=== PATIENT | male | born 1965 | race Caucasian/White ===

== ENCOUNTER 2019-03-11 11:47 | Inpatient (IN) | payer MEDICARE, OTHER ==
[2019-03-11] MEDS ORDERED: IPRATROPIUM-ALBUTEROL 3 ML NEB INHALATION STA (12:07)
[2019-03-11] MEDS ORDERED: methylPREDNISolone SOD SUCCI 125 MG/2 ML VIAL IV STA (12:07)
--- NOTE | 2019-03-11 12:09 | ED ---
General Adult HPI - General Chief complaint: Shortness of Breath Stated complaint: shahriar Time Seen by Provider: 03/11/19 11:56 Source: patient, RN notes reviewed Mode of arrival: ambulatory Limitations: no limitations - History of Present Illness Initial comments: Patient is a pleasant 53-year-old male presenting to the emergency department with difficulty in breathing. Onset of symptoms was last night, worse today. Patient did not sleep well. No leg pain or leg swelling. Patient believes he ate some bad tuna last night and did vomit twice. No nausea at this point. Patient is unclear if he has had fevers. Patient is a chronic smoker however h as never been diagnosed with COPD. - Related Data Home Medications Medication Instructions Recorded Confirmed Divalproex [Depakote] 1,500 mg PO HS 03/11/19 03/11/19 Ibuprofen [Motrin Ib] 800 mg PO Q6H PRN 03/11/19 03/11/19 Omeprazole 20 mg PO DAILY PRN 03/11/19 03/11/19 risperiDONE [RisperDAL] 4 mg PO HS 03/11/19 03/11/19 Allergies Allergy/AdvReac Type Severity Reaction Status Date / Time sulfamethoxazole Allergy Unknown Verified 03/11/19 12:11 [From Bactrim] trimethoprim [From Bactrim] Allergy Unknown Verified 03/11/19 12:11 codeine AdvReac Nausea Verified 03/11/19 12:11 Review of Systems ROS Statement: Those systems with pertinent positive or pertinent negative responses have been documented in the HPI. ROS Other: All systems not noted in ROS Statement are negative. Constitutional: Reports: as per HPI Eyes: Denies: eye pain ENT: Denies: ear pain Respiratory: Reports: cough, dyspnea Cardiovascular: Denies: chest pain Endocrine: Reports: fatigue Gastrointestinal: Reports: nausea, vomiting. Denies: abdominal pain Genitourinary: Denies: dysuria Musculoskeletal: Denies: back pain Skin: Denies: rash Neurological: Denies: weakness Past Medical History Past Medical History: COPD, Osteoarthritis (OA) Additional Past Medical History / Comment(s): chronic back pain History of Any Multi-Drug Resistant Organisms: None Reported Past Surgical History: Orthopedic Surgery Past Anesthesia/Blood Transfusion Reactions: No Reported Reaction Past Psychological History: Bipolar, Schizophrenia Smoking Status: Current every day smoker Past Alcohol Use History: None Reported Past Drug Use History: None Reported General Exam Limitations: no limitations General appearance: alert Head exam: Present: atraumatic Eye exam: Present: normal appearance, PERRL ENT exam: Present: normal oropharynx Neck exam: Present: normal inspection Respiratory exam: Present: wheezes, decreased breath sounds Cardiovascular Exam: Present: regular rate, normal rhythm GI/Abdominal exam: Present: soft. Absent: tenderness Extremities exam: Present: normal inspection. Absent: pedal edema, calf tenderness Neurological exam: Present: alert Psychiatric exam: Present: normal affect, normal mood Skin exam: Present: normal color Course Vital Signs 03/11/19 03/11/19 03/11/19 11:49 13:21 13:24 Temperature 97.8 F Pulse Rate 90 100 98 Respiratory 34 H 22 Rate Blood Pressure 134/69 134/106 O2 Sat by Pulse 89 L 92 L Oximetry 03/11/19 03/11/19 03/11/19 13:28 14:06 14:10 Temperature Pulse Rate 102 H 109 H Respiratory 22 24 Rate Blood Pressure 167/102 O2 Sat by Pulse 85 L 86 L Oximetry 03/11/19 14:36 Temperature Pulse Rate 77 Respiratory 28 H Rate Blood Pressure 125/80 O2 Sat by Pulse 93 L Oximetry - Reevaluation(s) Reevaluation #1: 03/11/19 13:41 Repeat EKG shows sinus rhythm and 98. QRS 156. QT 410. QTc 523. Normal axis. Left Bundle-branch block. Nonspecific ST-T. 03/11/19 15:01 Patient was placed on BiPAP with improvement of respiratory status. Patient states he does feel improved. Case was discussed with Dr. Smith with cardiology who will consult. He has came to see the patient. Case was also discussed in detail with Dr. Singh, who will consult 03/11/19 15:24 Case was discussed with Dr. Auguste, who will admit covering for Dr. Palacio. EKG Findings - EKG Comments: EKG Findings:: Sinus rhythm at 89. For screening AV block TX of 344. QRS 148. QT 406. QTc 493. Normal axis. Left bundle branch block. Nonspecific T waves. Medical Decision Making - Lab Data Result diagrams: 03/11/19 12:26 03/11/19 12:26 Lab Results 03/11/19 03/11/19 03/11/19 Range/Units 12:26 12:26 12:26 WBC 10.3 (3.8-10.6) k/uL RBC 4.32 (4.30-5.90) m/uL Hgb 13.9 (13.0-17.5) gm/dL Hct 40.5 (39.0-53.0) % MCV 93.8 (80.0-100.0) fL MCH 32.3 (25.0-35.0) pg MCHC 34.4 (31.0-37.0) g/dL RDW 12.6 (11.5-15.5) % Plt Count 217 (150-450) k/uL Neutrophils % 79 % Lymphocytes % 12 % Monocytes % 6 % Eosinophils % 1 % Basophils % 0 % Neutrophils # 8.2 H (1.3-7.7) k/uL Lymphocytes # 1.3 (1.0-4.8) k/uL Monocytes # 0.6 (0-1.0) k/uL Eosinophils # 0.1 (0-0.7) k/uL Basophils # 0.0 (0-0.2) k/uL PT 9.6 (9.0-12.0) sec INR 0.9 (<1.2) APTT 24.7 (22.0-30.0) sec D-Dimer 1.14 H (<0.60) mg/L FEU Sodium 131 L (137-145) mmol/L Potassium 5.2 H (3.5-5.1) mmol/L Chloride 97 L (98-107) mmol/L Carbon Dioxide 22 (22-30) mmol/L Anion Gap 12 mmol/L BUN 21 H (9-20) mg/dL Creatinine 0.79 (0.66-1.25) mg/dL Est GFR (CKD-EPI)AfAm >90 (>60 ml/min/1.73 sqM) Est GFR (CKD-EPI)NonAf >90 (>60 ml/min/1.73 sqM) Glucose 140 H (74-99) mg/dL Calcium 9.0 (8.4-10.2) mg/dL Total Bilirubin 0.3 (0.2-1.3) mg/dL AST 130 H (17-59) U/L ALT 49 (21-72) U/L Alkaline Phosphatase 69 (38-126) U/L Creatine Kinase 887 H (55-170) U/L Troponin I (0.000-0.034) ng/mL NT-Pro-B Natriuret Pep pg/mL Total Protein 6.8 (6.3-8.2) g/dL Albumin 4.1 (3.5-5.0) g/dL 03/11/19 03/11/19 Range/Units 12:26 12:26 WBC (3.8-10.6) k/uL RBC (4.30-5.90) m/uL Hgb (13.0-17.5) gm/dL Hct (39.0-53.0) % MCV (80.0-100.0) fL MCH (25.0-35.0) pg MCHC (31.0-37.0) g/dL RDW (11.5-15.5) % Plt Count (150-450) k/uL Neutrophils % % Lymphocytes % % Monocytes % % Eosinophils % % Basophils % % Neutrophils # (1.3-7.7) k/uL Lymphocytes # (1.0-4.8) k/uL Monocytes # (0-1.0) k/uL Eosinophils # (0-0.7) k/uL Basophils # (0-0.2) k/uL PT (9.0-12.0) sec INR (<1.2) APTT (22.0-30.0) sec D-Dimer (<0.60) mg/L FEU Sodium (137-145) mmol/L Potassium (3.5-5.1) mmol/L Chloride (98-107) mmol/L Carbon Dioxide (22-30) mmol/L Anion Gap mmol/L BUN (9-20) mg/dL Creatinine (0.66-1.25) mg/dL Est GFR (CKD-EPI)AfAm (>60 ml/min/1.73 sqM) Est GFR (CKD-EPI)NonAf (>60 ml/min/1.73 sqM) Glucose (74-99) mg/dL Calcium (8.4-10.2) mg/dL Total Bilirubin (0.2-1.3) mg/dL AST (17-59) U/L ALT (21-72) U/L Alkaline Phosphatase (38-126) U/L Creatine Kinase (55-170) U/L Troponin I 15.300 H* (0.000-0.034) ng/mL NT-Pro-B Natriuret Pep 02397 pg/mL Total Protein (6.3-8.2) g/dL Albumin (3.5-5.0) g/dL - Radiology Data Radiology results: report reviewed (Computed tomography scan of the chest computed tomography scan of the chest shows no definitive pulmonary embolism. Limited exam. Bilateral effusions and pulmonary venous congestion is present with scattered groundglass opacities likely congestive heart failure. No pneumonia identified.), image reviewed (Chest x-ray shows no masses.) Critical Care Time Critical Care Time: Yes Total Critical Care Time: 35 Disposition Clinical Impression: Acute pulmonary edema, Congestive heart failure Disposition: ADMITTED IP TO THIS HOSP Is patient prescribed a controlled substance at d/c from ED?: No Referrals: Laureano Palacio MD [Primary Care Provider] - 1-2 days Decision Time: 15:01
[2019-03-11 12:40] LABS: Basophils % (A) 0 %; Eosinophils # (A) 0.1 k/uL (0-0.7); Eosinophils % (A) 1 %; HCT 40.5 % (39.0-53.0); HGB 13.9 gm/dL (13.0-17.5); Lymphocytes # (A) 1.3 k/uL (1.0-4.8); Lymphocytes % (A) 12 %; MCH 32.3 pg (25.0-35.0); MCHC 34.4 g/dL (31.0-37.0); MCV 93.8 fL (80.0-100.0); Mean Platelet Volume 9.5; Monocytes # (A) 0.6 k/uL (0-1.0); Monocytes % (A) 6 %; Neutrophils # (A) 8.2 k/uL (1.3-7.7); Neutrophils % (A) 79 %; Platelet Count 217 k/uL (150-450); RBC 4.32 m/uL (4.30-5.90); RDW 12.6 % (11.5-15.5); WBC 10.3 k/uL (3.8-10.6)
[2019-03-11 12:53] LABS: INR 0.9 (<1.2); Partial Thromboplastin Time 24.7 sec (22.0-30.0); Prothrombin Time 9.6 sec (9.0-12.0)
[2019-03-11 12:59] LABS: ALT 49 U/L (21-72); AST 130 U/L (17-59); Albumin 4.1 g/dL (3.5-5.0); Alkaline Phosphatase 69 U/L (38-126); Anion Gap 12 mmol/L; Blood Urea Nitrogen 21 mg/dL (9-20); Carbon Dioxide 22 mmol/L (22-30); Chloride 97 mmol/L (98-107); Creatine Kinase 887 U/L (55-170); Glucose 140 mg/dL (74-99); Potassium 5.2 mmol/L (3.5-5.1); Sodium 131 mmol/L (137-145); Total Bilirubin 0.3 mg/dL (0.2-1.3); Total Protein 6.8 g/dL (6.3-8.2)
[2019-03-11 13:08] LABS: D-Dimer 1.14 mg/L FEU (<0.60)
--- NOTE | 2019-03-11 13:22 | XR ---
EXAMINATION TYPE: XR chest 2V DATE OF EXAM: 03/11/2019 COMPARISON: 03/11/2019 HISTORY: Shortness of breath TECHNIQUE: Frontal and lateral views of the chest are obtained. FINDINGS: Scattered senescent parenchymal changes noted. Hyperinflation compatible with COPD. No evidence for infiltrate. No evidence for atelectasis. Heart size is stable. Mediastinal structures are stable and grossly unremarkable. No evidence for hilar prominence. Degenerative changes dorsal spine. IMPRESSION: 1. No evidence for acute pulmonary disease.
[2019-03-11] MEDS ORDERED: HEPARIN SODIUM,PORCINE 10,000 UNIT/ML 1 ML VIAL IV ONE (13:40)
[2019-03-11] MEDS ORDERED: MORPHINE SULFATE 4 MG/ML SYRINGE IV STA (13:40)
[2019-03-11] MEDS ORDERED: HEPARIN SODIUM,PORCINE 5,000 UNIT/ML 1 ML VIAL IV PRN (13:40)
[2019-03-11] MEDS ORDERED: HEPARIN SOD,PORK IN 0.45% NACL 25,000 UNIT in 0.45% NACL 1 250ML.BAG IV SCH (13:45)
--- NOTE | 2019-03-11 14:27 | CT ---
EXAMINATION TYPE: CT angio chest DATE OF EXAM: 03/11/2019 COMPARISON: None HISTORY: SHAREE CT DLP: 864.4 mGycm CONTRAST: CT chest with contrast and 3D reconstruction with MIP imaging is performed without and with IV Contra st, patient injected with 100 ml mL of Isovue 370. Contrast-enhanced CT of the chest was performed through the course of the pulmonary arteries with zara g and mediastinal window settings submitted. 3D reconstruction with MIP imaging was also performed. Patient motion limits portions of the study. PULMONARY ARTERIES: Patient motion limits evaluation. Pulmonary arteries are patent without filling defect. Secondary and tertiary branches also appear to be patent however the distal tertiary branches are poorly evaluated on this study. LUNGS: There are small bilateral pleural effusions noted. There is a degree of pulmonary venous conge stion. Scattered linear areas of atelectasis noted. Scattered nonspecific groundglass infiltrates not ed. No evidence for pulmonary mass. MEDIASTINUM: Thoracic aorta is of normal caliber,however, evaluation is limited given timing of the contrast bolus. If there is concern for thoracic aortic pathology consider MITCHELL. Correlate clinicall y . The heart is not enlarged. No evidence for mediastinal mass. No mediastinal lymph nodes greater than 1cm. HILAR STRUCTURES: No evidence for mass. No hilar lymph nodes greater than 1 cm. UPPER ABDOMEN: No significant abnormality is seen. IMPRESSION: 1. No definite pulmonary embolism at this time. Examination is limited given patient motion and resu ltant artifact. See above. 2. Small bilateral pleural effusions and pulmonary venous congestion with scattered ground glass infi ltrates could reflect early features of congestive failure. Correlate clinically. No focal pneumonia identified at this time.
[2019-03-11] MEDS ORDERED: LORazepam 2 MG/ML INJ IV STA (14:32)
[2019-03-11] MEDS ORDERED: NITROGLYCERIN OINT 1 INCH/GM PACKET TOPICAL STA (14:49)
[2019-03-11] MEDS ORDERED: FUROSEMIDE 10 MG/ML 4 ML VIAL IV STA (14:49)
[2019-03-11] MEDS ORDERED: ENALAPRILAT 1.25 MG/ML 1 ML VIAL IVP STA (14:50)
[2019-03-11] MEDS ORDERED: ASPIRIN 325 MG TAB PO STA (15:26)
[2019-03-11] MEDS ORDERED: ASPIRIN 81 MG PO STA (15:26)
[2019-03-11] MEDS ORDERED: ENALAPRILAT 1.25 MG/ML 1 ML VIAL IVP SCH (15:30)
[2019-03-11] MEDS ORDERED: FUROSEMIDE 10 MG/ML 4 ML VIAL IV SCH ×2 (15:30)
[2019-03-11] MEDS: HEPARIN SOD,PORK IN 0.45% NACL 25,000 UNIT in 0.45% NACL 1 250ML.BAG IV SCH (15:41)
[2019-03-11 16:43] LABS: Glucose,Whole Blood 191 mg/dL (75-99)
[2019-03-11 16:51] LABS: ABG Base Excess -6.8 mmol/L; ABG HCO3 19 mmol/L (21-25); ABG Oxygen Saturation 99.2 % (94-97); ABG PCO2 36 mmHg (35-45); ABG PH 7.33 (7.35-7.45); ABG PO2 198 mmHg (83-108); ABG TCO2 20 mmol/L (19-24)
--- NOTE | 2019-03-11 17:16 | P.CNPUL ---
History of Present Illness Consult date: 03/11/19 Requesting physician: Nikolas Auguste Reason for consult: dyspnea, chest pain, abnormal CXR/CT Chief complaint: Shortness of breath History of present illness: This is a 53-year-old white male patient of Dr. Palacio, past medical history of COPD, current every day smoker, bipolar disorder, schizophrenia, osteoarthritis, chronic back pain, presented to the emergency department on 03/11/2019 at 1147 w ith complaints of difficulty breathing that started last night and became progressively worse today. Patient at first believed that it was related to some bad tuna he had eaten last night, he did have a couple of episodes of vomiting. Unclear if he had any fevers. Patient could not sleep well last night related to his dyspnea, nausea and vomiting. Did complain of chest discomfort, she is currently on BiPAP, he is quite irritable, difficult to interview. Most of the patient's history was obtained from the chart. Denied any leg pain or swelling. EKG showed sinus rhythm with first-degree AV block, left bundle branch block and nonspecific T waves, repeat EKG showed sinus rhythm with a rate of 98 left bundle branch block and nonspecific ST and T wave changes. Chest x-ray showed no evidence for acute pulmonary disease. Lab work did not show any leukocytosis, d-dimer was elevated at 1.14, CT angios chest did not show any evidence of definite pulmonary embolism, the examination was li mited related to patient's motion and resultant artifact. Small bilateral pleural effusions and pulmonary venous congestion with scattered groundglass infiltrates affecting early features of congestive heart failure. No focal pneumonia was identified. Permanent was elevated at 15,003 100, creatinine kinase was 887, AST was 1:30, proBNP was 11,000. Patient was given a dose of IV Lasix, he was seen by cardiology in the emergency department and was started on maintenance dose of Lasix 40 mg every 8 hours. Patient was quite tachypneic, and hypoxemic, she was placed on BiPAP support, currently with pressures of 75 and FiO2 of 100%. IPap was increased to 15, stat blood gas was obtained and s howed pO2 of 198, pCO2 36, pH of 7.33. Will drop FiO2 down to 70%. Review of Systems All systems: negative Constitutional: Denies chills, Denies fever Eyes: denies blurred vision, denies pain Ears, nose, mouth and throat: Denies headache, Denies sore throat Cardiovascular: Reports chest pain, Reports dyspnea on exertion, Reports orthopnea, Denies shortness of breath Respiratory: Reports dyspnea, Denies cough Gastrointestinal: Denies abdominal pain, Denies diarrhea, Denies nausea, Denies vomiting Musculoskeletal: Denies myalgias Integumentary: Denies pruritus, Denies rash Neurological: Denies numbness, Denies weakness Psychiatric: Denies anxiety, Denies depression Endocrine: Denies fatigue, Denies weight change Past Medical History Past Medical History: COPD, Osteoarthritis (OA) Additional Past Medical History / Comment(s): chronic back pain History of Any Multi-Drug Resistant Organisms: None Reported Past Surgical History: Orthopedic Surgery Past Anesthesia/Blood Transfusion Reactions: No Reported Reaction Past Psychological History: Bipolar, Schizophrenia Smoking Status: Current every day smoker Past Alcohol Use History: None Reported Past Drug Use History: None Reported Medications and Allergies Home Medications Medication Instructions Recorded Confirmed Type Divalproex [Depakote] 1,500 mg PO HS 03/11/19 03/11/19 History Ibuprofen [Motrin Ib] 800 mg PO Q6H PRN 03/11/19 03/11/19 History Omeprazole 20 mg PO DAILY PRN 03/11/19 03/11/19 History risperiDONE [RisperDAL] 4 mg PO HS 03/11/19 03/11/19 History Allergies Allergy/AdvReac Type Severity Reaction Status Date / Time sulfamethoxazole Allergy Unknown Verified 03/11/19 12:11 [From Bactrim] trimethoprim [From Bactrim] Allergy Unknown Verified 03/11/19 12:11 codeine AdvReac Nausea Verified 03/11/19 12:11 Physical Exam Vitals: Vital Signs Temp Pulse Resp BP Pulse Ox 03/11/19 16:38 97.9 F 59 L 24 105/69 98 03/11/19 15:36 69 24 116/92 98 03/11/19 15:00 70 24 114/83 97 03/11/19 14:36 77 28 H 125/80 93 L 03/11/19 14:10 24 86 L 03/11/19 14:06 109 H 22 167/102 85 L 03/11/19 13:45 28 H 03/11/19 13:28 102 H 03/11/19 13:24 98 22 134/106 92 L 03/11/19 13:21 100 03/11/19 11:49 97.8 F 90 34 H 134/69 89 L Intake and Output 03/11/19 03/11/19 03/11/19 06:59 14:59 22:59 Other: Weight 127.006 kg GENERAL EXAM: Alert, slightly anxious, irritable, 53-year-old white male on BiPAP support, currently with pressures of 15/5, and FiO2 100%, tachypneic, with the respiratory rate in the 30s, comfortable in no apparent distress. HEAD: Normocephalic/atraumatic. EYES: Normal reaction of pupils, equal size. Conjunctiva pink, sclera white. NOSE: Clear with pink turbinates. THROAT: No erythema or exudates. NECK: No masses, no JVD, no thyroid enlargement, no adenopathy. CHEST: No chest wall deformity. Symmetrical expansion. LUNGS: Equal air entry with diminished breath sounds CVS: Regular rate and rhythm, normal S1 and S2, no gallops, no murmurs, no rubs ABDOMEN: Soft, nontender. No hepatosplenomegaly, normal bowel sounds, no guarding or rigidity. EXTREMITIES: No clubbing, no edema, no cyanosis, 2+ pulses and upper and lower extremities. MUSCULOSKELETAL: Muscle strength and tone normal. SPINE: No scoliosis or deformity SKIN: No rashes CENTRAL NERVOUS SYSTEM: Alert and oriented -3. No focal deficits, tone is normal in all 4 extremities. PSYCHIATRIC: Alert and oriented -3. Appropriate affect. Intact judgment and insight. Results - Laboratory Findings CBC and BMP: 03/11/19 12:26 03/11/19 12:26 PT/INR, D-dimer PT 9.6 sec (9.0-12.0) 03/11/19 12:26 INR 0.9 (<1.2) 03/11/19 12:26 D-Dimer 1.14 mg/L FEU (<0.60) H 03/11/19 12:26 Abnormal lab findings: Abnormal Labs 03/11/19 03/11/19 03/11/19 12:26 12:26 12:26 Neutrophils # 8.2 H D-Dimer 1.14 H Sodium 131 L Potassium 5.2 H Chloride 97 L BUN 21 H Glucose 140 H POC Glucose (mg/dL) AST 130 H Creatine Kinase 887 H Troponin I 03/11/19 03/11/19 12:26 16:40 Neutrophils # D-Dimer Sodium Potassium Chloride BUN Glucose POC Glucose (mg/dL) 191 H AST Creatine Kinase Troponin I 15.300 H* - Diagnostic Findings Chest x-ray: report reviewed, image reviewed CT scan - chest: report reviewed, image reviewed Additional studies: EKG reviewed Assessment and Plan Plan: Assessment: #1. Acute hypoxemic respiratory failure secondary to acute exacerbation of congestive heart failure, with reduced ejection fraction #2. Elevated d-dimer, CT angios chest did not show any clear evidence of pulmonary embolism, did show small bilateral pleural effusions, pulmonary venous congestion, reflecting changes of congestive heart failure #3. Acute non-ST elevated myocardial infarction #4. COPD #5. Chronic nicotine dependence #6. Chronic back pain #7. Bipolar disorder, schizophrenia Plan: Continue with IV Lasix, stat blood gas was obtained and reviewed Dr. Mills, FiO2 was dropped down to 70%, will continue with BiPAP support for now, chest x-ray and CT angios chest were reviewed with Dr. Mills, and were consistent with acute congestive heart failure, pulmonary edema. Cardiology is following, nondistended EKG was obtained, patient is having an irregular rhythm, and at times appears to be sometime high degree block. Echocardiogram has been ordered and is pending, serial cardiac Enzymes. Continue nebulized bronchodilators, he has been started on Plavix and aspirin. He is on heparin infusion, and topical Nitropaste. We'll continue to closely follow and make further recommendations. Repeat chest x-ray in the morning, repeat blood work in the morning. I performed a history & physical examination of the patient and discussed their management with my nurse practitioner, Charlene Elmore. I reviewed the nurse practitioner's note and agree with the documented findings and plan of care. Lung sounds are positive for diminished breath sounds. The findings and the impression was discussed with the patient. I attest to the documentation by the nurse practitioner. Time with Patient: Greater than 30
[2019-03-11] MEDS ORDERED: NITROGLYCERIN OINT 1 INCH/GM PACKET TOPICAL SCH (18:00)
--- NOTE | 2019-03-11 18:54 | CONS ---
CONSULTATION CHIEF COMPLAINT: Shortness of breath. This is a 53-year-old gentleman with no significant past medical history that presented to the hospital with shortness of breath for the last 2 days. He has moderate to severe intensity shortness of breath at rest associated with leg edema. His admission EKG showed sinus rhythm with left bundle branch block and the troponins have come back [place] 15[place] [address]. His D-dimer was also elevated at 1.1. The patient went on to have a CT scan of the chest as per the ER doctor. After the CT scan, which did not reveal any pulmonary embolism, but definitely showed pulmonary congestion. The ER doctor had called me about the patient. I have seen him in the emergency room. Patient seemed to be in respiratory distress, sitting up and has not received any Lasix at this time. I asked the nurse to give him Lasix immediately with half an inch of nitro paste, give him some beta blockers and start him on an aspirin along with heparin. The patient seemed to have had a recent acute myocardial infarction with congestive heart failure. The patient has pulmonary edema. He is not able to lie flat in the bed at the moment, so the plan is to aggressively treat his heart failure and perform cardiac catheterization once the patient is more stable. I believe the patient has already completed from history, it appears as the patient's myocardial infarction is at least 48 hours old if not more. PAST MEDICAL HISTORY: Negative for hypertension, diabetes, dyslipidemia. MEDICATIONS: Include omeprazole, Motrin, Depakote and Risperdal. ALLERGIES: BACTRIM AND CODEINE. FAMILY HISTORY: Negative for premature coronary artery disease. SOCIAL HISTORY: Significant for smoking. There is no history of EtOH abuse or drug abuse. REVIEW OF SYSTEMS: HEENT is unremarkable. Cardiac as described above. Respiratory as described above. GI negative. Genitourinary negative. Allergy/Immunology: Negative. Skin negative. Musculoskeletal significant for arthritis. Psychosocial negative. Endocrine negative. Derm negative. Constitutional negative. Oncological negative. Rest of the system review is not relevant. EXAM: Patient appears in mild respiratory distress. Heart rate is 60 beats per minute. Blood pressure is 116/90, respiratory rate is 26, BiPAP O2 sat is 98% on 100% FIO2. There is no jugular venous distention. Chest exam reveals bilateral crackles. Heart exam reveals first and second heart sounds. No gallop. No murmur. Abdomen is soft. Exam of the extremities reveals bilateral 1+ pitting edema. The CT scan of the chest is negative for pulmonary embolism. EKG shows left bundle branch block. ASSESSMENT: Acute coronary syndrome with congestive heart failure probably secondary to LV systolic dysfunction. We will treat the patient with optimal medical therapy, admit the patient to ICU and consider invasive angiography over the next 24-48 hours. I will obtain a 2D echo to evaluate his LV function. NICHOLE / RICARDON: [id number] /
[2019-03-11] MEDS: IPRATROPIUM-ALBUTEROL 3 ML NEB INHALATION SCH (19:16)
[2019-03-11] MEDS ORDERED: NALOXONE 0.4 MG/ML 1 ML VIAL IV PRN (19:20)
[2019-03-11 19:42] LABS: Magnesium 1.7 mg/dL (1.6-2.3); Phosphorus 3.7 mg/dL (2.5-4.5)
[2019-03-11] MEDS ORDERED: PANTOPRAZOLE 40 MG TABLET PO PRN (20:51)
[2019-03-11] MEDS ORDERED: METOPROLOL TARTRATE 12.5 MG TAB PO SCH (21:00)
--- NOTE | 2019-03-11 21:06 | P.HPIM ---
History of Present Illness H&P Date: 03/11/19 Chief Complaint: Acute respiratory failure, pulmonary edema, acute myocardial infarction, hy 53 year-old morbidly obese male one of Dr. mckinney's patient with past medical history of COPD, chronic smoking, schizoaffective disorders along with osteoarthritis and chronic lower back pain who presented to the emergency department at [facility] today complaining of worsening shortness of breath started last night become much worse over the last few hours patient has been having significant dyspnea hypoxia and worsening cough and shortness of breath. The time was seen surprisingly his enzyme were quite bit elevated troponin was over 14 patient chest x-ray showed acute pulmonary edema he was started on BiPAP was very close to be intubated pulmonary consultation was done patient EKG showed first-degree block with wider QRS complex with left bundle-branch block having multiple PVCs and PACs with no V. tach at the time no A. fib at the point. Family were around patient and family were told that he had acute myocardial infarction sometime in the last day or 2 become much worse probably cause ischemic cardiopathy and had a created much worsening acute pulmonary edema cardiogenic in origin. Patient was started on O2 along with updraft treatment as well nicotine patch at admitted to the ICU afterward. Patient will be going to the laborer car barn with his more stable or hopefully over the next 24 hours. Review of Systems CONSTITUTIONAL: More be very obese and acute respiratory distress having significant dyspnea. EYES: No icterus sclerae, no conjunctivitis. EARS, NOSE, MOUTH, THROAT, and FACE: No sore throat, lymphadenopathy, carotid bruits or deformity. RESPIRATORY: Positive shortness of breath cough wheezes. CARDIOVASCULAR: Positive chest pain PND orthopnea palpitation. GASTROINTESTINAL: No Abd pain, Nausea or vomiting, no Diarrhea or constipation, No GI Bleed, no distention or masses. GENITOURINARY: Negative for Hematuria or UTI, no kidney stones. INTEGUMENT/BREAST: Negative for any muscular injury with mild osteoarthritis.. HEMATOLOGIC/LYMPHATIC: Negative for bleed or purpura. MUSCULOSKELTAL: Negative for Myalgia or arthralgia. NEURLOGICAL: No LOC, Sz or syncope, blurred vision dizziness or abnormality.. BEHAVIORAL/PSYCH: Negative. ENDOCRINE: Negative. Past Medical History Past Medical History: COPD, Osteoarthritis (OA) Additional Past Medical History / Comment(s): chronic back pain History of Any Multi-Drug Resistant Organisms: None Reported Past Surgical History: Orthopedic Surgery Past Anesthesia/Blood Transfusion Reactions: No Reported Reaction Past Psychological History: Bipolar, Schizophrenia Smoking Status: Current every day smoker Past Alcohol Use History: None Reported Past Drug Use History: None Reported Medications and Allergies Home Medications Medication Instructions Recorded Confirmed Type Divalproex [Depakote] 1,500 mg PO HS 03/11/19 03/11/19 History Ibuprofen [Motrin Ib] 800 mg PO Q6H PRN 03/11/19 03/11/19 History Omeprazole 20 mg PO DAILY PRN 03/11/19 03/11/19 History risperiDONE [RisperDAL] 4 mg PO HS 03/11/19 03/11/19 History Allergies Allergy/AdvReac Type Severity Reaction Status Date / Time sulfamethoxazole Allergy Unknown Verified 03/11/19 12:11 [From Bactrim] trimethoprim [From Bactrim] Allergy Unknown Verified 03/11/19 12:11 codeine AdvReac Nausea Verified 03/11/19 12:11 Physical Exam Vitals: Vital Signs Temp Pulse Pulse Resp BP Pulse Ox 03/11/19 19:16 50 L 22 03/11/19 19:00 54 L 22 125/89 98 03/11/19 18:30 50 L 24 125/89 97 03/11/19 18:00 61 28 H 125/89 95 03/11/19 17:30 61 27 H 125/89 98 03/11/19 17:00 97.6 F 72 65 H 118/83 03/11/19 16:45 62 50 H 03/11/19 16:38 97.9 F 59 L 24 105/69 98 03/11/19 15:36 69 24 116/92 98 03/11/19 15:00 70 24 114/83 97 03/11/19 14:36 77 28 H 125/80 93 L 03/11/19 14:10 24 86 L 03/11/19 14:06 109 H 22 167/102 85 L 03/11/19 13:45 28 H 03/11/19 13:28 102 H 03/11/19 13:24 98 22 134/106 92 L 03/11/19 13:21 100 03/11/19 11:49 97.8 F 90 34 H 134/69 89 L Intake and Output 03/11/19 03/11/19 03/11/19 06:59 14:59 22:59 Intake Total 40 Output Total 85 Balance -45 Intake: IV 40 normal saline 40 Output: Urine 85 Other: Voiding Method Indwelling Catheter # Voids 2 Weight 127.006 kg General Appearance: Obese looks older than his age in mild respiratory distress had IPAP on at the time. Neck HEENT: Supple, no lymphadenopathy, no thyroid enlargement, no carotid bruits. Lungs: Clear to auscultation without crackles or wheezes no rhonchi, no deformity. Chest Wall: Decrease expansion with deep inspiration no tenderness and no deformity was found on exam, no costochondral pain or discomfort. Heart: Regular rate and rhythm, S1, S2 positive S3 positive JVD ,no rub or gallop. Back: Symmetric, severe scoliosis with L-spine discomfort. Abdomen: Distended positive bowel sound no organomegaly. Extremities: Extremities positive osteoarthritis with 1+ edema decreased pulse. Pulses: 2+ and symmetric. Skin: Skin color, texture, tugor normal, no rashes or lesions. Neurologic: Alert oriented x3 cranial nerves II through XII intact, no motor deficit, no abnormal balance or gait. Results CBC & Chem 7: 03/11/19 12:26 03/11/19 12:26 Labs: Abnormal Lab Results - Last 24 Hours (Table) 03/11/19 03/11/19 03/11/19 Range/Units 12:26 12:26 12:26 Neutrophils # 8.2 H (1.3-7.7) k/uL D-Dimer 1.14 H (<0.60) mg/L FEU ABG pH (7.35-7.45) ABG pO2 (83-108) mmHg ABG HCO3 (21-25) mmol/L ABG O2 Saturation (94-97) % Sodium 131 L (137-145) mmol/L Potassium 5.2 H (3.5-5.1) mmol/L Chloride 97 L (98-107) mmol/L BUN 21 H (9-20) mg/dL Glucose 140 H (74-99) mg/dL POC Glucose (mg/dL) (75-99) mg/dL AST 130 H (17-59) U/L Creatine Kinase 887 H (55-170) U/L Troponin I (0.000-0.034) ng/mL 03/11/19 03/11/19 03/11/19 Range/Units 12:26 16:40 16:49 Neutrophils # (1.3-7.7) k/uL D-Dimer (<0.60) mg/L FEU ABG pH 7.33 L (7.35-7.45) ABG pO2 198 H (83-108) mmHg ABG HCO3 19 L (21-25) mmol/L ABG O2 Saturation 99.2 H (94-97) % Sodium (137-145) mmol/L Potassium (3.5-5.1) mmol/L Chloride (98-107) mmol/L BUN (9-20) mg/dL Glucose (74-99) mg/dL POC Glucose (mg/dL) 191 H (75-99) mg/dL AST (17-59) U/L Creatine Kinase (55-170) U/L Troponin I 15.300 H* (0.000-0.034) ng/mL 03/11/19 Range/Units 18:06 Neutrophils # (1.3-7.7) k/uL D-Dimer (<0.60) mg/L FEU ABG pH (7.35-7.45) ABG pO2 (83-108) mmHg ABG HCO3 (21-25) mmol/L ABG O2 Saturation (94-97) % Sodium (137-145) mmol/L Potassium (3.5-5.1) mmol/L Chloride (98-107) mmol/L BUN (9-20) mg/dL Glucose (74-99) mg/dL POC Glucose (mg/dL) (75-99) mg/dL AST (17-59) U/L Creatine Kinase (55-170) U/L Troponin I 14.600 H* (0.000-0.034) ng/mL Thrombosis Risk Factor Assmnt - DVT/VTE Prophylaxis DVT/VTE Prophylaxis: Pharmacologic Prophylaxis ordered, Mechanical Prophylaxis ordered - Choose All That Apply Any of the Below Risk Factors Present?: Yes Each Factor Represents 1 point: Abnormal pulmonary function (COPD), Age 41-60 years Thrombosis Risk Factor Assessment Total Risk Factor Score: 2 Thrombosis Risk Factor Assessment Level: Low Risk Assessment and Plan Plan: 1 acute respiratory failure: Combination of acute cardiac pulmonary edema along with COPD exacerbation and acute ID. Will treat underlying disease continue Bi PAP and if patient declined might require to be on ventilator pulmonary consultation was obtained. 2 acute pulmonary edema: Most likely cardiogenic from acute ID had happen in the last 24 hours which affected the heart muscle and created cardiogenic shock patient will be seen cardiology continue supportive care continue diuretics O2 beta anil and keep watching patient for any arrhythmia. 3 acute myocardial infarction: Most likely has taking place in the last day or 2 patient eventually need to go to the laborer car barn in the meanwhile the extreme high mortality specially with arrhythmia and effect on the heart muscle all to be seen and determine over the next 48 hours. 4 COPD with mild exacerbation: Patient still on acute respiratory acidosis: Continue DuoNeb Pulmicort and steroid continue O2 and BiPAP. 5 nicotine dependency: Continue a Chin nicotine patch. 6 severe hyperglycemia: Continue Accu-Chek with sliding scales coverage. 7 bipolar disorders and schizoaffective disorders has been on Depakote continue medication. 8 DVT prophylaxis: Patient is on heparin drip. 9 GI prophylaxis: Patient will continue on Pepcid 20 mg IV every 12 hours. CODE STATUS: Full code. Admit patient to inpatient status for more than 2 nights. Discussion with the family: The and the sister were in the bedside and with patient's current symptom cardiogenic shock is going through and the severe acute respiratory failure along with acute ID very high mortality and very high morbidity in the next few month specially with to be seen with the myocardial function loss to be discovered with echocardiogram the heart cath over the next 24 hours. We'll continue monitoring patient continue to watch him for any major arrhythmia.
[2019-03-11] MEDS: SODIUM CHLORIDE 0.9% 1,000 ML IV SCH (21:22)
[2019-03-11] MEDS: risperiDONE 2 MG TAB PO SCH (21:23)
[2019-03-11] MEDS: DIVALPROEX 500 MG TABLET.DR PO SCH (21:23)
[2019-03-11] MEDS: FAMOTIDINE 20 MG/2 ML VIAL IV SCH (21:23)
[2019-03-11] MEDS: hydrALAZINE HCL 25 MG TAB PO SCH (21:24)
[2019-03-11] MEDS: HEPARIN SODIUM,PORCINE 5,000 UNIT/ML 1 ML VIAL IV PRN (21:24)
[2019-03-11] MEDS: ENALAPRILAT 1.25 MG/ML 1 ML VIAL IVP SCH (23:41)
[2019-03-12] MEDS: FUROSEMIDE 10 MG/ML 4 ML VIAL IV SCH ×4 (01:53→23:19)
[2019-03-12] MEDS: NITROGLYCERIN OINT 1 INCH/GM PACKET TOPICAL SCH ×2 (01:53→09:01)
[2019-03-12 03:59] LABS: Basophils % (A) 0 %; Eosinophils % (A) 0 %; HCT 40.7 % (39.0-53.0); HGB 13.4 gm/dL (13.0-17.5); Lymphocytes # (A) 1.4 k/uL (1.0-4.8); Lymphocytes % (A) 13 %; MCHC 32.9 g/dL (31.0-37.0); MCV 94.2 fL (80.0-100.0); Mean Platelet Volume 8.9; Monocytes # (A) 0.6 k/uL (0-1.0); Monocytes % (A) 6 %; Neutrophils # (A) 8.2 k/uL (1.3-7.7); Neutrophils % (A) 80 %; Platelet Count 240 k/uL (150-450); RBC 4.32 m/uL (4.30-5.90); RDW 13.7 % (11.5-15.5); WBC 10.3 k/uL (3.8-10.6)
[2019-03-12 04:01] LABS: INR 0.9 (<1.2); Partial Thromboplastin Time 31.6 sec (22.0-30.0); Prothrombin Time 9.8 sec (9.0-12.0)
[2019-03-12 04:05] LABS: Anion Gap 12 mmol/L; Blood Urea Nitrogen 28 mg/dL (9-20); Calcium 8.6 mg/dL (8.4-10.2); Carbon Dioxide 21 mmol/L (22-30); Chloride 98 mmol/L (98-107); Glucose 164 mg/dL (74-99); Magnesium 1.8 mg/dL (1.6-2.3); Phosphorus 4.9 mg/dL (2.5-4.5); Potassium 5.2 mmol/L (3.5-5.1); Sodium 131 mmol/L (137-145)
[2019-03-12] MEDS: ENALAPRILAT 1.25 MG/ML 1 ML VIAL IVP SCH ×4 (05:18→20:01)
[2019-03-12] MEDS: HEPARIN SODIUM,PORCINE 5,000 UNIT/ML 1 ML VIAL IV PRN (05:21)
[2019-03-12] MEDS: IPRATROPIUM-ALBUTEROL 3 ML NEB INHALATION SCH ×4 (07:13→19:09)
--- NOTE | 2019-03-12 08:02 | XR ---
EXAMINATION TYPE: XR chest 1V portable DATE OF EXAM: 03/12/2019 COMPARISON: Prior chest x-ray 03/11/2019 HISTORY: Shortness of breath TECHNIQUE: Single frontal view of the chest is obtained. FINDINGS: Findings have progressed. Perihilar airspace disease is present. No evident pneumothorax o r pleural effusion. Heart is enlarged. IMPRESSION: Correlate for congestive heart failure.
--- NOTE | 2019-03-12 08:32 | P.PN ---
Subjective Progress Note Date: 03/12/19 Principal diagnosis: Acute hypoxemic respiratory failure secondary to acute exacerbation of congestive heart failure with impaired ejection fraction, acute non-ST elevated myocardial infarction This is a 53-year-old white male patient of Dr. Palacio, past medical history of COPD, current every day smoker, bipolar disorder, schizophrenia, osteoarthritis, chronic back pain, presented to the emergency department on 03/11/2019 at 1147 with complaints of difficulty breathing that started last night and became progressively worse today. Patient at first believed that it was related to some bad tuna he had eaten last night, he did have a couple of episodes of vomiting. Unclear if he had any fevers. Patient could not sleep well last night related to his dyspnea, nausea and vomiting. Did complain of chest discomfort, she is currently on BiPAP, he is quite irritable, difficult to interview. Most of the patient's history was obtained from the chart. Denied any leg pain or swelling. EKG showed sinus rhythm with first-degree AV block, left bundle branch block and nonspecific T waves, repeat EKG showed sinus rhythm with a rate of 98 left bundle branch block and nonspecific ST and T wave changes. Chest x-ray showed no evidence for acute pulmonary disease. Lab work did not show any leukocytosis, d-dimer was elevated at 1.14, CT angios chest did not show any evidence of definite pulmonary embolism, the examination was limited related to patient's motion and resultant artifact. Small bilateral pleural effusions and pulmonary venous congestion with scattered groundglass infiltrates affecting early features of congestive heart failure. No focal pneumonia was identified. Permanent was elevated at 15,003 100, creatinine kinase was 887, AST was 1:30, proBNP was 11,000. Patient was given a dose of IV Lasix, he was seen by cardiology in the emergency department and was started on maintenance dose of Lasix 40 mg every 8 hours. Patient was quite tachypneic, an d hypoxemic, she was placed on BiPAP support, currently with pressures of 75 and FiO2 of 100%. IPap was increased to 15, stat blood gas was obtained and showed pO2 of 198, pCO2 36, pH of 7.33. Will drop FiO2 down to 70%. On 03/12/2019 patient seen in follow-up in the intensive care unit, he remains on BiPAP support, current with pressures of 15/5, and FiO2 of 70%, with pulse ox of 95%, FiO2 was brought down to 60%. Apparently last the patient was given a trial off the BiPAP, and it did desaturate into the 80s, became very short of breath, and was placed back on BiPAP support. he remains on IV diuretics, I&O's are difficult to estimate, as patient is voiding. Today's labs have been revi ewed, CBC is unremarkable, sodium is 131, potassium is 5.2, chloride is 98, CO2 is 21, B1 is 28, creatinine 0.91. Second and third troponin are trending down, at 14.6, and 11.5 respectively. No Complaints of chest pain today, patient has coarse breath sounds, bilaterally. His chest x-ray has been reviewed and showed no pneumothorax or pleural effusion, changes of congestive heart failure. Objective - Vital Signs Vital signs: Vital Signs Temp 98.0 F 03/12/19 04:00 Pulse 87 03/12/19 07:25 Resp 26 H 03/12/19 07:00 BP 115/84 03/12/19 07:00 Pulse Ox 94 L 03/12/19 07:00 Intake & Output 03/11/19 03/12/19 03/12/19 18:59 06:59 18:59 Intake Total 20 426.41 20 Output Total 50 180 350 Balance -30 246.41 -330 Weight 127.006 kg 128.4 kg Intake: IV 20 240 20 normal saline 20 240 20 Intake, IV Titration 186.41 Amount Heparin Sod,Pork in 0.45% 186.41 NaCl 25,000 unit In 0.45 % NaCl 1 250ml.bag @ 7. 874 UNITS/KG/HR 10 mls/hr IV .Q[facility]H [facility] Rx#: [id number] Output: Urine 50 180 350 Other: Voiding Method Indwelling Catheter Indwelling Catheter # Voids 2 - Exam GENERAL EXAM: Alert, slightly anxious, irritable, 53-year-old white male on BiPAP support, currently with pressures of 15/5, and FiO2 60%, comfortable less tachypneic on today's exam HEAD: Normocephalic/atraumatic. EYES: Normal reaction of pupils, equal size. Conjunctiva pink, sclera white. NOSE: Clear with pink turbinates. THROAT: No erythema or exudates. NECK: No masses, no JVD, no thyroid enlargement, no adenopathy. CHEST: No chest wall deformity. Symmetrical expansion. LUNGS: Equal air entry with diminished breath sounds, coarse lung sounds bilaterally CVS: Regular rate and rhythm, normal S1 and S2, no gallops, no murmurs, no rubs ABDOMEN: Soft, nontender. No hepatosplenomegaly, normal bowel sounds, no guarding or rigidity. EXTREMITIES: No clubbing, no edema, no cyanosis, 2+ pulses and upper and lower extremities. MUSCULOSKELETAL: Muscle strength and tone normal. SPINE: No scoliosis or deformity SKIN: No rashes CENTRAL NERVOUS SYSTEM: Alert and oriented -3. No focal deficits, tone is normal in all 4 extremities. PSYCHIATRIC: Alert and oriented -3. Appropriate affect. Intact judgment and insight. - Labs CBC & Chem 7: 03/12/19 03:34 03/12/19 03:34 Labs: Abnormal Lab Results - Last 24 Hours (Table) 03/11/19 03/11/19 03/11/19 Range/Units 12:26 12:26 12:26 Neutrophils # 8.2 H (1.3-7.7) k/uL APTT (22.0-30.0) sec D-Dimer 1.14 H (<0.60) mg/L FEU ABG pH (7.35-7.45) ABG pO2 (83-108) mmHg ABG HCO3 (21-25) mmol/L ABG O2 Saturation (94-97) % Sodium 131 L (137-145) mmol/L Potassium 5.2 H (3.5-5.1) mmol/L Chloride 97 L (98-107) mmol/L Carbon Dioxide (22-30) mmol/L BUN 21 H (9-20) mg/dL Glucose 140 H (74-99) mg/dL POC Glucose (mg/dL) (75-99) mg/dL Phosphorus (2.5-4.5) mg/dL AST 130 H (17-59) U/L Creatine Kinase 887 H (55-170) U/L Troponin I (0.000-0.034) ng/mL 03/11/19 03/11/19 03/11/19 Range/Units 12:26 16:40 16:49 Neutrophils # (1.3-7.7) k/uL APTT (22.0-30.0) sec D-Dimer (<0.60) mg/L FEU ABG pH 7.33 L (7.35-7.45) ABG pO2 198 H (83-108) mmHg ABG HCO3 19 L (21-25) mmol/L ABG O2 Saturation 99.2 H (94-97) % Sodium (137-145) mmol/L Potassium (3.5-5.1) mmol/L Chloride (98-107) mmol/L Carbon Dioxide (22-30) mmol/L BUN (9-20) mg/dL Glucose (74-99) mg/dL POC Glucose (mg/dL) 191 H (75-99) mg/dL Phosphorus (2.5-4.5) mg/dL AST (17-59) U/L Creatine Kinase (55-170) U/L Troponin I 15.300 H* (0.000-0.034) ng/mL 03/11/19 03/11/19 03/12/19 Range/Units 18:06 19:49 00:28 Neutrophils # (1.3-7.7) k/uL APTT 30.7 H (22.0-30.0) sec D-Dimer (<0.60) mg/L FEU ABG pH (7.35-7.45) ABG pO2 (83-108) mmHg ABG HCO3 (21-25) mmol/L ABG O2 Saturation (94-97) % Sodium (137-145) mmol/L Potassium (3.5-5.1) mmol/L Chloride (98-107) mmol/L Carbon Dioxide (22-30) mmol/L BUN (9-20) mg/dL Glucose (74-99) mg/dL POC Glucose (mg/dL) (75-99) mg/dL Phosphorus (2.5-4.5) mg/dL AST (17-59) U/L Creatine Kinase (55-170) U/L Troponin I 14.600 H* 11.500 H* (0.000-0.034) ng/mL 03/12/19 03/12/19 03/12/19 Range/Units 03:34 03:34 03:34 Neutrophils # 8.2 H (1.3-7.7) k/uL APTT 31.6 H (22.0-30.0) sec D-Dimer (<0.60) mg/L FEU ABG pH (7.35-7.45) ABG pO2 (83-108) mmHg ABG HCO3 (21-25) mmol/L ABG O2 Saturation (94-97) % Sodium 131 L (137-145) mmol/L Potassium 5.2 H (3.5-5.1) mmol/L Chloride (98-107) mmol/L Carbon Dioxide 21 L (22-30) mmol/L BUN 28 H (9-20) mg/dL Glucose 164 H (74-99) mg/dL POC Glucose (mg/dL) (75-99) mg/dL Phosphorus 4.9 H (2.5-4.5) mg/dL AST (17-59) U/L Creatine Kinase (55-170) U/L Troponin I (0.000-0.034) ng/mL Assessment and Plan Plan: Assessment: #1. Acute hypoxemic respiratory failure secondary to acute exacerbation of congestive heart failure, with reduced ejection fraction #2. Elevated d-dimer, CT angios chest did not show any clear evidence of pulmonary embolism, did show small bilateral pleural effusions, pulmonary venous congestion, reflecting changes of congestive heart failure #3. Acute non-ST elevated myocardial infarction #4. COPD #5. Chronic nicotine dependence #6. Chronic back pain #7. Bipolar disorder, schizophrenia Plan: We'll drop down FiO2 down to 60%, continue weaning the FiO2, continue with BiPAP support, May attempt to give the patient a trial nasal cannula, continue with IV diuretics, accurate I&O's, daily weights. Patient is more comfortable today, less dyspneic, less tachypneic. Cardiology is following, will await their recommendation in terms of possibility of heart catheterization. Continue his breathing treatments, no steroids right now. Heart rate and rhythm are stable, no arrhythmias overnight. No fever or chills, hemodynamically stable. We'll continue to follow. I performed a history & physical examination of the patient and discussed their management with my nurse practitioner, Charlene Elmore. I reviewed the nurse practitioner's note and agree with the documented findings and plan of care. Lung sounds are positive for diminished breath sounds. The findings and the impression was discussed with the patient. I attest to the documentation by the nurse practitioner. Time with Patient: Less than 30
[2019-03-12] MEDS ORDERED: ASPIRIN 325 MG TAB PO SCH (09:00)
[2019-03-12] MEDS: hydrALAZINE HCL 25 MG TAB PO SCH ×3 (09:02→21:30)
[2019-03-12] MEDS: FAMOTIDINE 20 MG/2 ML VIAL IV SCH ×2 (09:02→21:30)
[2019-03-12] MEDS: ASPIRIN 81 MG PO SCH (09:02)
[2019-03-12] MEDS: CLOPIDOGREL 75 MG TAB PO SCH (09:02)
[2019-03-12] MEDS: ISOSORBIDE MONONITRATE ER 30 MG TAB.ER.24H PO SCH ×2 (09:04→11:41)
[2019-03-12 11:22] LABS: Cholesterol 149 mg/dL (<200); HDL Cholesterol 33 mg/dL (40-60); LDL Cholesterol,Calculated 81 mg/dL (0-99); Triglycerides 174 mg/dL (<150)
--- NOTE | 2019-03-12 11:42 | PN ---
PROGRESS NOTE Lane is a 53-year-old gentleman who was admitted to hospital yesterday with recent myocardial infarction and pulmonary edema. We treated him with aspirin, beta blockers, nitrates, Lasix and has made significant improvement since yesterday. He is less short of breath, putting out urine. Had an echocardiogram that showed severe LV dysfunction. Troponin on admission was 15. It is coming down. It looks like he already peaked his troponin and his myocardial infarction is complete. I advised him to undergo a cardiac catheterization to evaluate his coronary anatomy and we will decide on further course of action based on the angiographic data. On exam today, he is comfortable, able to lie flat in the bed. Vital signs are stable. Chest exam reveals good air entry. I do not hear any crackles. Heart exam reveals first and second heart sounds. No gallop. Examination of extremities did not reveal any edema. Peripheral pulses are felt. The patient had cardiac arrhythmia yesterday including PVCs, PACs and maybe even short run of atrial fibrillation. ASSESSMENT: 1. Recent acute myocardial infarction. 2. Ischemic cardiomyopathy with severe left ventricular dysfunction. 3. Acute pulmonary edema. PLAN: Will do cardiac catheterization on him today and decide on further course of action. MMODL / IJN: [id number] /
--- NOTE | 2019-03-12 12:28 | ECHOF ---
Referral Reason:ELEVATED TROP MEASUREMENTS -------- HEIGHT: 193.0 cm WEIGHT: 127.0 kg BP: 118/83 RVIDd: 4.1 cm (< 3.3) IVSd: 1.8 cm (0.6 - 1.1) LVIDd: 5.2 cm (3.9 - 5.3) LVPWd: 1.7 cm (0.6 - 1.1) IVSs: 2.1 cm LVIDs: 4.7 cm LVPWs: 2.1 cm LA Diam: 4.0 cm (2.7 - 3.8) LAESV Index (A-L): 23.26 ml/m MV EXCURSION: 24.241 mm (> 18.000) MV EF SLOPE: 118 mm/s (70 - 150) EPSS: 2.9 cm FINDINGS -------- This was a technically difficult study with suboptimal views. The left ventricular size is normal. There is moderate concentric left ventricular hypertrophy. O verall left ventricular systolic function is moderately impaired with, an EF between 35 - 40 %. The right ventricle is moderately enlarged. The left atrial size is normal. The right atrium was not well visualized. 5.0mg OF Lumason UTLIZED: 2 OR MORE WALL SEGMENTS NOT VISUALIZED. Interatrial and interventricular septum intact. The aortic valve was not well visualized. Mild mitral regurgitation is present. The tricuspid valve was not well visualized. The pulmonic valve was not well visualized. CONCLUSIONS -------- 1. This was a technically difficult study with suboptimal views. 2. The left ventricular size is normal. 3. The right ventricle is moderately enlarged. 4. The left atrial size is normal. 5. The right atrium was not well visualized. 6. 5.0mg OF Lumason UTLIZED: 2 OR MORE WALL SEGMENTS NOT VISUALIZED. 7. Interatrial and interventricular septum intact. 8. The aortic valve was not well visualized. 9. Mild mitral regurgitation is present. 10. The tricuspid valve was not well visualized. 11. The pulmonic valve was not well visualized. OSTEOPATHIC RESIDENT: Ayala Jennings, [facility]
--- NOTE | 2019-03-12 13:27 | P.PN ---
Subjective Progress Note Date: 03/12/19 53 year-old morbidly obese male one of Dr. mckinney's patient with past medical history of COPD, chronic smoking, schizoaffective disorders along with osteoarthritis and chronic lower back pain who presented to the emergency department at [facility] today complaining of worsening shortness of breath started last night become much worse over the last few hours patient has been having significant dyspnea hypoxia and worsening cough and shortness of breath. The time was seen surprisingly his enzyme were quite bit elevated troponin was over 14 patient chest x-ray showed acute pulmonary edema he was started on BiPAP was very close to be intubated pulmonary consultation was done patient EKG showed first-degree block with wider QRS complex with left bundle- branch block having multiple PVCs and PACs with no V. tach at the time no A. fib at the point. Family were around patient and family were told that he had acute myocardial infarction sometime in the last day or 2 become much worse probably cause ischemic cardiopathy and had a created much worsening acute pulmonary edema cardiogenic in origin. Patient was started on O2 along with updraft treatment as well nicotine patch at admitted to the ICU afterward. Patient will be going to the research lab assistant with his more stable or hopefully over the next 24 hours. 03/12: Patient remains in the intensive care unit. Echocardiogram reveals EF of 35-40% with moderate concentric left ventricular hypertrophy, mild mitral regurgitation, technically difficult study. Chest x-ray showing correlate for heart failure. Patient is followed by cardiology with plan for heart catheterization today. Patient has been afebrile, heart rate in the 90s to low 100s, blood pressure 108/82, patient has been on BiPAP and pulse ox 93 percent. CBC is normal, BUN 28 creatinine 0.91. Sodium 131, potassium 5.2, chloride 98 and CO2 21. Repeat troponins have been 14.6 and 11.5. Triglycerides 174, cholesterol 149, LDL 81 and HDL 33. Stool for occult blood was negative. Review of Systems CONSTITUTIONAL: obese and no acute respiratory distress EYES: No icterus sclerae, no conjunctivitis. EARS, NOSE, MOUTH, THROAT, and FACE: No sore throat, lymphadenopathy, carotid bruits or deformity. RESPIRATORY: Positive shortness of breath cough wheezes. CARDIOVASCULAR: Positive chest pain PND orthopnea palpitation. GASTROINTESTINAL: No Abd pain, Nausea or vomiting, no Diarrhea or constipation, No GI Bleed, no distention or masses. GENITOURINARY: Negative for Hematuria or UTI, no kidney stones. INTEGUMENT/BREAST: Negative for any muscular injury with mild osteoarthritis.. HEMATOLOGIC/LYMPHATIC: Negative for bleed or purpura. MUSCULOSKELTAL: Negative for Myalgia or arthralgia. NEURLOGICAL: No LOC, Sz or syncope, blurred vision dizziness or abnormality.. BEHAVIORAL/PSYCH: Negative. ENDOCRINE: Negative. Objective - Vital Signs Vital signs: Vital Signs Temp 98.0 F 03/12/19 04:00 Pulse 87 03/12/19 07:25 Resp 26 H 03/12/19 07:00 BP 115/84 03/12/19 07:00 Pulse Ox 94 L 03/12/19 07:00 Intake & Output 03/11/19 03/12/19 03/12/19 18:59 06:59 18:59 Intake Total 20 386.41 Output Total 50 180 Balance -30 206.41 Weight 127.006 kg Intake: IV 20 200 normal saline 20 200 Intake, IV Titration 186.41 Amount Heparin Sod,Pork in 0.45% 186.41 NaCl 25,000 unit In 0.45 % NaCl 1 250ml.bag @ 7. 874 UNITS/KG/HR 10 mls/hr IV .Q24H [facility] Rx#: [id number] Output: Urine 50 180 Other: Voiding Method Indwelling Catheter Indwelling Catheter # Voids 2 - Exam General Appearance: Obese looks older than his age in no respiratory distress had IPAP on at the time. Neck HEENT: Supple, no lymphadenopathy, no thyroid enlargement, no carotid bruits. Lungs: Clear to auscultation without crackles or wheezes no rhonchi, no deformity. Chest Wall: Decrease expansion with deep inspiration no tenderness and no deformity was found on exam, no costochondral pain or discomfort. Heart: Regular rate and rhythm, S1, S2 positive S3 positive JVD ,no rub or gallop. Back: Symmetric, severe scoliosis with L-spine discomfort. Abdomen: Distended positive bowel sound no organomegaly. Extremities: Extremities positive osteoarthritis with 1+ edema decreased pulse. Pulses: 2+ and symmetric. Skin: Skin color, texture, tugor normal, no rashes or lesions. Neurologic: Alert oriented x3 cranial nerves II through XII intact, no motor deficit, no abnormal balance or gait. - Labs CBC & Chem 7: 03/12/19 03:34 03/12/19 03:34 Labs: Abnormal Lab Results - Last 24 Hours (Table) 03/11/19 03/11/19 03/11/19 Range/Units 12:26 12:26 12:26 Neutrophils # 8.2 H (1.3-7.7) k/uL APTT (22.0-30.0) sec D-Dimer 1.14 H (<0.60) mg/L FEU ABG pH (7.35-7.45) ABG pO2 (83-108) mmHg ABG HCO3 (21-25) mmol/L ABG O2 Saturation (94-97) % Sodium 131 L (137-145) mmol/L Potassium 5.2 H (3.5-5.1) mmol/L Chloride 97 L (98-107) mmol/L Carbon Dioxide (22-30) mmol/L BUN 21 H (9-20) mg/dL Glucose 140 H (74-99) mg/dL POC Glucose (mg/dL) (75-99) mg/dL Phosphorus (2.5-4.5) mg/dL AST 130 H (17-59) U/L Creatine Kinase 887 H (55-170) U/L Troponin I (0.000-0.034) ng/mL 03/11/19 03/11/19 03/11/19 Range/Units 12:26 16:40 16:49 Neutrophils # (1.3-7.7) k/uL APTT (22.0-30.0) sec D-Dimer (<0.60) mg/L FEU ABG pH 7.33 L (7.35-7.45) ABG pO2 198 H (83-108) mmHg ABG HCO3 19 L (21-25) mmol/L ABG O2 Saturation 99.2 H (94-97) % Sodium (137-145) mmol/L Potassium (3.5-5.1) mmol/L Chloride (98-107) mmol/L Carbon Dioxide (22-30) mmol/L BUN (9-20) mg/dL Glucose (74-99) mg/dL POC Glucose (mg/dL) 191 H (75-99) mg/dL Phosphorus (2.5-4.5) mg/dL AST (17-59) U/L Creatine Kinase (55-170) U/L Troponin I 15.300 H* (0.000-0.034) ng/mL 03/11/19 03/11/19 03/12/19 Range/Units 18:06 19:49 00:28 Neutrophils # (1.3-7.7) k/uL APTT 30.7 H (22.0-30.0) sec D-Dimer (<0.60) mg/L FEU ABG pH (7.35-7.45) ABG pO2 (83-108) mmHg ABG HCO3 (21-25) mmol/L ABG O2 Saturation (94-97) % Sodium (137-145) mmol/L Potassium (3.5-5.1) mmol/L Chloride (98-107) mmol/L Carbon Dioxide (22-30) mmol/L BUN (9-20) mg/dL Glucose (74-99) mg/dL POC Glucose (mg/dL) (75-99) mg/dL Phosphorus (2.5-4.5) mg/dL AST (17-59) U/L Creatine Kinase (55-170) U/L Troponin I 14.600 H* 11.500 H* (0.000-0.034) ng/mL 03/12/19 03/12/19 03/12/19 Range/Units 03:34 03:34 03:34 Neutrophils # 8.2 H (1.3-7.7) k/uL APTT 31.6 H (22.0-30.0) sec D-Dimer (<0.60) mg/L FEU ABG pH (7.35-7.45) ABG pO2 (83-108) mmHg ABG HCO3 (21-25) mmol/L ABG O2 Saturation (94-97) % Sodium 131 L (137-145) mmol/L Potassium 5.2 H (3.5-5.1) mmol/L Chloride (98-107) mmol/L Carbon Dioxide 21 L (22-30) mmol/L BUN 28 H (9-20) mg/dL Glucose 164 H (74-99) mg/dL POC Glucose (mg/dL) (75-99) mg/dL Phosphorus 4.9 H (2.5-4.5) mg/dL AST (17-59) U/L Creatine Kinase (55-170) U/L Troponin I (0.000-0.034) ng/mL Assessment and Plan Plan: 1 acute hypoxic respiratory failure: Combination of acute cardiac pulmonary edema along, ischemic cardiomyopathy, acute systolic heart failure and acute MD. Will treat underlying disease continue BiPAP and if patient declined might require to be on ventilator pulmonary consultation was obtained. 2 acute pulmonary edema: Most likely cardiogenic from acute MD had happen in the last 24 hours which affected the heart muscle and created cardiogenic shock patient will be seen cardiology continue supportive care continue diuretics O2 beta anil and keep watching patient for any arrhythmia. 3 acute non-ST elevated myocardial infarction. Patient scheduled for heart catheterization today. 4 COPD: Patient still on acute respiratory acidosis: Continue DuoNeb Pulmicort and steroid continue O2 and BiPAP. 5 nicotine dependency: Continue a Chin nicotine patch. 6 severe hyperglycemia: Continue Accu-Chek with sliding scales coverage. 7 bipolar disorders and schizoaffective disorders has been on Depakote continue medication. 8 DVT prophylaxis: Patient is on heparin drip. 9 GI prophylaxis: Patient will continue on Pepcid 20 mg IV every 12 hours. CODE STATUS: Full code. Impression and plan of care have been directed as dictated by the signing physician. Latrice Pierre nurse practitioner acting as scribe for signing physician.
[2019-03-12] MEDS: ATORVASTATIN 40 MG TAB PO SCH (14:26)
[2019-03-12 14:40] VITALS: BMI 34.4
[2019-03-12] MEDS: HEPARIN SOD,PORK IN 0.45% NACL 25,000 UNIT in 0.45% NACL 1 250ML.BAG IV SCH ×2 (15:55→16:21)
[2019-03-12] MEDS ORDERED: HEPARIN SODIUM,PORCINE 5,000 UNIT/ML 1 ML VIAL IV PRN (16:18)
[2019-03-12] MEDS: DIVALPROEX 500 MG TABLET.DR PO SCH (21:30)
[2019-03-12] MEDS: SODIUM CHLORIDE 0.9% 1,000 ML IV SCH (21:32)
[2019-03-12] MEDS: risperiDONE 2 MG TAB PO SCH (21:32)
[2019-03-13] MEDS: ENALAPRILAT 1.25 MG/ML 1 ML VIAL IVP SCH (05:59)
[2019-03-13 06:11] LABS: Basophils % (A) 0 %; Eosinophils # (A) 0.1 k/uL (0-0.7); Eosinophils % (A) 1 %; HCT 35.4 % (39.0-53.0); HGB 12.1 gm/dL (13.0-17.5); Lymphocytes # (A) 2.2 k/uL (1.0-4.8); Lymphocytes % (A) 24 %; MCHC 34.2 g/dL (31.0-37.0); MCV 93.4 fL (80.0-100.0); Mean Platelet Volume 8.7; Monocytes # (A) 0.4 k/uL (0-1.0); Monocytes % (A) 5 %; Neutrophils # (A) 6.3 k/uL (1.3-7.7); Neutrophils % (A) 69 %; Platelet Count 261 k/uL (150-450); RBC 3.79 m/uL (4.30-5.90); RDW 13.6 % (11.5-15.5); WBC 9.1 k/uL (3.8-10.6)
[2019-03-13 06:16] LABS: Partial Thromboplastin Time 49.9 sec (22.0-30.0); Prothrombin Time 10.3 sec (9.0-12.0)
[2019-03-13] MEDS: HEPARIN SOD,PORK IN 0.45% NACL 25,000 UNIT in 0.45% NACL 1 250ML.BAG IV SCH (06:54)
[2019-03-13] MEDS: IPRATROPIUM-ALBUTEROL 3 ML NEB INHALATION SCH ×4 (07:22→19:58)
[2019-03-13] MEDS: CLOPIDOGREL 75 MG TAB PO SCH (07:26)
[2019-03-13] MEDS: ASPIRIN 81 MG PO SCH (07:26)
[2019-03-13] MEDS ORDERED: IV FLUID CONTINUATION 1,000 ML IV ONE (07:48)
[2019-03-13] MEDS ORDERED: fentaNYL (PF) 50 MCG/ML 2 ML AMP ONE (07:51)
[2019-03-13] MEDS ORDERED: LIDOCAINE 1% INJ 10MG/ML (20 ML MDV) ONE (07:51)
[2019-03-13] MEDS ORDERED: LIDOCAINE 1% INJ 10MG/ML (20 ML MDV) SQ ONE (07:57)
[2019-03-13] MEDS ORDERED: fentaNYL (PF) 50 MCG/ML 2 ML AMP IV ONE (08:00)
[2019-03-13] MEDS ORDERED: IOPAMIDOL-370 100ML BTL INJ ONE (08:22)
[2019-03-13] MEDS ORDERED: RX INFO: IV CONTRAST WAS GIVEN 1 EACH MISC MISCELLANE PRN (08:26)
--- NOTE | 2019-03-13 09:35 | P.PN ---
Subjective Progress Note Date: 03/13/19 Principal diagnosis: Acute hypoxemic respiratory failure secondary to acute exacerbation of congestive heart failure with impaired ejection fraction, acute non-ST elevated myocardial infarction This is a 53-year-old white male patient of Dr. Palacio, past medical history of COPD, current every day smoker, bipolar disorder, schizophrenia, osteoarthritis, chronic back pain, presented to the emergency department on 03/11/2019 at 1147 with complaints of difficulty breathing that started last night and became progressively worse today. Patient at first believed that it was related to some bad tuna he had eaten last night, he did have a couple of episodes of vomiting. Unclear if he had any fevers. Patient could not sleep well last night related to his dyspnea, nausea and vomiting. Did complain of chest discomfort, she is currently on BiPAP, he is quite irritable, difficult to interview. Most of the patient's history was obtained from the chart. Denied any leg pain or swelling. EKG showed sinus rhythm with first-degree AV block, left bundle branch block and nonspecific T waves, repeat EKG showed sinus rhythm with a rate of 98 left bundle branch block and nonspecific ST and T wave changes. Chest x-ray showed no evidence for acute pulmonary disease. Lab work did not show any leukocytosis, d-dimer was elevated at 1.14, CT angios chest did not show any evidence of definite pulmonary embolism, the examination was limited related to patient's motion and resultant artifact. Small bilateral pleural effusions and pulmonary venous congestion with scattered groundglass infiltrates affecting early features of congestive heart failure. No focal pneumonia was identified. Permanent was elevated at 15,003 100, creatinine kinase was 887, AST was 1:30, proBNP was 11,000. Patient was given a dose of IV Lasix, he was seen by cardiology in the emergency department and was started on maintenance dose of Lasix 40 mg every 8 hours. Patient was quite tachypneic, an d hypoxemic, she was placed on BiPAP support, currently with pressures of 75 and FiO2 of 100%. IPap was increased to 15, stat blood gas was obtained and showed pO2 of 198, pCO2 36, pH of 7.33. Will drop FiO2 down to 70%. On 03/12/2019 patient seen in follow-up in the intensive care unit, he remains on BiPAP support, current with pressures of 15/5, and FiO2 of 70%, with pulse ox of 95%, FiO2 was brought down to 60%. Apparently last the patient was given a trial off the BiPAP, and it did desaturate into the 80s, became very short of breath, and was placed back on BiPAP support. he remains on IV diuretics, I&O's are difficult to estimate, as patient is voiding. Today's labs have been revi ewed, CBC is unremarkable, sodium is 131, potassium is 5.2, chloride is 98, CO2 is 21, B1 is 28, creatinine 0.91. Second and third troponin are trending down, at 14.6, and 11.5 respectively. No Complaints of chest pain today, patient has coarse breath sounds, bilaterally. His chest x-ray has been reviewed and showed no pneumothorax or pleural effusion, changes of congestive heart failure. On 03/13/2019 patient seen in follow-up in the intensive care unit, he had just returned from the Emergency Management Director after having a heart catheterization done, and patient had normal coronary arteries, no occlusive disease. Patient is back in the room, he is currently on 7 L per high flow nasal cannula, did wear BiPAP support last night, currently he is in no acute distress, no complaint of shortness of breath or chest pain, he is maintaining saturation around 93% on 7 L. Afebrile, hemodynamically stable, no new chest x-ray today, he 18 years on IV Lasix, he is in -4195 mL over the last 24 hours. Lung sounds are positive for coarse breath sounds bilaterally. No use of accessory muscles of breathing. Patient is calm and comfortable, 0.9 normal saline at a rate of 20 ML per hour, sinus rhythm on the monitor. Cardiology is following and making adjustments to patient's medications. Objective - Vital Signs Vital signs: Vital Signs Temp 99.0 F 03/13/19 04:00 Pulse 96 03/13/19 09:00 Resp 18 03/13/19 09:00 BP 127/72 03/13/19 09:00 Pulse Ox 93 L 03/13/19 09:00 Intake & Output 03/12/19 03/13/19 03/13/19 18:59 06:59 18:59 Intake Total 303.59 500.892 150 Output Total 5244 7125 Balance -1981.41 -2214.108 150 Weight 128.4 kg 127.6 kg Intake: IV 240 360 150 normal saline 240 360 100 Intake, IV Titration 63.59 140.892 Amount Heparin Sod,Pork in 0.45% 140.892 NaCl 25,000 unit In 0.45 % NaCl 1 250ml.bag @ 16 UNITS/KG/HR 20.321 mls/hr IV .[id number] [facility] Rx#: [id number] Heparin Sod,Pork in 0.45% 63.59 NaCl 25,000 unit In 0.45 % NaCl 1 250ml.bag @ 7. 874 UNITS/KG/HR 10 mls/hr IV .Q24H [facility] Rx#: [id number] Output: Urine 2285 2715 Other: Voiding Method Indwelling Catheter Indwelling Catheter - Exam GENERAL EXAM: Alert, 53-year-old white male on 7 L per high flow nasal cannula with a pulse ox of 93%, comfortable less tachypneic on today's exam HEAD: Normocephalic/atraumatic. EYES: Normal reaction of pupils, equal size. Conjunctiva pink, sclera white. NOSE: Clear with pink turbinates. THROAT: No erythema or exudates. NECK: No masses, no JVD, no thyroid enlargement, no adenopathy. CHEST: No chest wall deformity. Symmetrical expansion. LUNGS: Equal air entry with diminished breath sounds, coarse lung sounds bila terally CVS: Regular rate and rhythm, normal S1 and S2, no gallops, no murmurs, no rubs ABDOMEN: Soft, nontender. No hepatosplenomegaly, normal bowel sounds, no guarding or rigidity. EXTREMITIES: No clubbing, no edema, no cyanosis, 2+ pulses and upper and lower extremities. MUSCULOSKELETAL: Muscle strength and tone normal. SPINE: No scoliosis or deformity SKIN: No rashes CENTRAL NERVOUS SYSTEM: Alert and oriented -3. No focal deficits, tone is normal in all 4 extremities. PSYCHIATRIC: Alert and oriented -3. Appropriate affect. Intact judgment and insight. - Labs CBC & Chem 7: 03/13/19 05:49 03/12/19 03:34 Labs: Abnormal Lab Results - Last 24 Hours (Table) 03/12/19 03/12/19 03/13/19 Range/Units 10:49 22:27 05:49 RBC 3.79 L (4.30-5.90) m/uL Hgb 12.1 L (13.0-17.5) gm/dL Hct 35.4 L (39.0-53.0) % APTT 34.8 H (22.0-30.0) sec Triglycerides 174 H (<150) mg/dL HDL Cholesterol 33 L (40-60) mg/dL 03/13/19 Range/Units 05:49 RBC (4.30-5.90) m/uL Hgb (13.0-17.5) gm/dL Hct (39.0-53.0) % APTT 49.9 H (22.0-30.0) sec Triglycerides (<150) mg/dL HDL Cholesterol (40-60) mg/dL Assessment and Plan Plan: Assessment: #1. Acute hypoxemic respiratory failure secondary to acute exacerbation of congestive heart failure, with reduced ejection fraction #2. Elevated d-dimer, CT angios chest did not show any clear evidence of pulmonary embolism, did show small bilateral pleural effusions, pulmonary venous congestion, reflecting changes of congestive heart failure #3. Acute non-ST elevated myocardial infarction #4. COPD #5. Chronic nicotine dependence #6. Chronic back pain #7. Bipolar disorder, schizophrenia Plan: Continue IV diuretics, patient is breathing easier, heart cath showed normal coronary arteries, no occlusive disease. No couplets or chest pain, no dyspnea, patient is stable to transfer out of the intensive care unit today to selective care unit. We'll continue to follow. I performed a history & physical examination of the patient and discussed their management with my nurse practitioner, Charlene Elmore. I reviewed the nurse practitioner's note and agree with the documented findings and plan of care. Lung sounds are positive for diminished breath sounds. The findings and the impression was discussed with the patient. I attest to the documentation by the nurse practitioner. Time with Patient: Less than 30
--- NOTE | 2019-03-13 09:50 | CC ---
CARDIAC CATHETERIZATION REPORT INDICATION: Acute pulmonary edema. PROCEDURE NOTE: After obtaining informed consent, left heart catheterization and coronary angiogram were performed via the right femoral artery using standard David catheters. The patient tolerated the procedure well without any obvious immediate complications. A femoral angiogram was performed and Angio-Seal was deployed for hemostasis. Patient received moderate conscious sedation. Total sedation time was 22 minutes. FINDINGS: 1. HEMODYNAMICS: Left ventricular end-diastolic pressure is 24 mm. There is no significant gradient across the aortic valve. 2. LEFT VENTRICULOGRAM: Left ventriculogram is not performed. 3. ANGIOGRAPHIC DATA: Left Main Coronary Artery: Left main coronary artery is a normal-sized vessel and is free of stenosis. Divides into left anterior descending coronary artery and circumflex coronary artery. LAD and its branches and circumflex coronary artery and its branches are free of significant stenosis. Right coronary artery is a large dominant vessel. There is a mild atherosclerotic plaque in its midportion. CONCLUSIONS: 1. Mild nonobstructive coronary artery disease. 2. Nonischemic cardiomyopathy with severe left ventricular dysfunction. PLAN: Will treat the patient with optimal medical therapy. Re-evaluate the LV function over the next several months and if he continues to have LV systolic dysfunction, he will need a Bi-V AICD. MMODL / IJN: [id number] /
[2019-03-13] MEDS: FUROSEMIDE 10 MG/ML 4 ML VIAL IV SCH ×3 (10:24→23:20)
[2019-03-13] MEDS: FAMOTIDINE 20 MG/2 ML VIAL IV SCH ×2 (10:25→20:57)
[2019-03-13] MEDS: HEPARIN SODIUM,PORCINE 5,000 UNIT/ML 1 ML VIAL SQ SCH ×2 (10:25→16:04)
[2019-03-13] MEDS: ATORVASTATIN 40 MG TAB PO SCH (10:25)
[2019-03-13] MEDS: hydrALAZINE HCL 25 MG TAB PO SCH ×2 (10:25→20:56)
--- NOTE | 2019-03-13 12:28 | P.PN ---
Subjective Progress Note Date: 03/13/19 53 year-old morbidly obese male one of Dr. mckinney's patient with past medical history of COPD, chronic smoking, schizoaffective disorders along with osteoarthritis and chronic lower back pain who presented to the emergency department at [facility] today complaining of worsening shortness of breath started last night become much worse over the last few hours patient has been having significant dyspnea hypoxia and worsening cough and shortness of breath. The time was seen surprisingly his enzyme were quite bit elevated troponin was over 14 patient chest x-ray showed acute pulmonary edema he was started on BiPAP was very close to be intubated pulmonary consultation was done patient EKG showed first-degree block with wider QRS complex with left bundle- branch block having multiple PVCs and PACs with no V. tach at the time no A. fib at the point. Family were around patient and family were told that he had acute myocardial infarction sometime in the last day or 2 become much worse probably cause ischemic cardiopathy and had a created much worsening acute pulmonary edema cardiogenic in origin. Patient was started on O2 along with updraft treatment as well nicotine patch at admitted to the ICU afterward. Patient will be going to the sleep lab technologist with his more stable or hopefully over the next 24 hours. 03/12: Patient remains in the intensive care unit. Echocardiogram reveals EF of 35-40% with moderate concentric left ventricular hypertrophy, mild mitral regurgitation, technically difficult study. Chest x-ray showing correlate for heart failure. Patient is followed by cardiology with plan for heart catheterization today. Patient has been afebrile, heart rate in the 90s to low 100s, blood pressure 108/82, patient has been on BiPAP and pulse ox 93 percent. CBC is normal, BUN 28 creatinine 0.91. Sodium 131, potassium 5.2, chloride 98 and CO2 21. Repeat troponins have been 14.6 and 11.5. Triglycerides 174, cholesterol 149, LDL 81 and HDL 33. Stool for occult blood was negative. 03/13: Patient remains in intensive care unit. He was on BiPAP during the night and high flow nasal cannula during the day. Has been afebrile, heart rate in 80s and 90s, blood pressure 117/64. Patient remains on heparin drip. White count is 9.1, hemoglobin 12.1. Patient underwent heart catheterization this morning which revealed normal coronary arteries, no occlusive disease. Patient has been downgraded to cardiac stepdown unit. Patient is very anxious to be discharged home but after long discussion he is agreeable to stay. He is currently on IV Lasix with good urine output. Continues to have wheezing and is requesting Mucinex. Mucinex has been added. Patient will be evaluated for home O2 need. Possible discharge home in the next 24-48 hours. Review of Systems CONSTITUTIONAL: obese and no acute respiratory distress EYES: No icterus sclerae, no conjunctivitis. EARS, NOSE, MOUTH, THROAT, and FACE: No sore throat, lymphadenopathy, carotid bruits or deformity. RESPIRATORY: Positive shortness of breath cough wheezes. CARDIOVASCULAR: Denies chest pain PND orthopnea palpitation. GASTROINTESTINAL: No Abd pain, Nausea or vomiting, no Diarrhea or constipation, No GI Bleed, no distention or masses. GENITOURINARY: Negative for Hematuria or UTI, no kidney stones. INTEGUMENT/BREAST: Negative for any muscular injury with mild osteoarthritis.. HEMATOLOGIC/LYMPHATIC: Negative for bleed or purpura. MUSCULOSKELTAL: Negative for Myalgia or arthralgia. NEURLOGICAL: No LOC, Sz or syncope, blurred vision dizziness or abnormality.. BEHAVIORAL/PSYCH: Negative. ENDOCRINE: Negative. Objective - Vital Signs Vital signs: Vital Signs Temp 99.0 F 03/13/19 04:00 Pulse 93 03/13/19 07:26 Resp 13 03/13/19 07:00 BP 117/64 03/13/19 07:00 Pulse Ox 90 L 03/13/19 07:00 Intake & Output 03/12/19 03/13/19 03/13/19 18:59 06:59 18:59 Intake Total 303.59 500.892 Output Total 8161 7138 Balance -1981.41 -2214.108 Weight 128.4 kg Intake: IV 240 360 normal saline 240 360 Intake, IV Titration 63.59 140.892 Amount Heparin Sod,Pork in 0.45% 140.892 NaCl 25,000 unit In 0.45 % NaCl 1 250ml.bag @ 16 UNITS/KG/HR 20.321 mls/hr IV .[id number] [facility] Rx#: [id number] Heparin Sod,Pork in 0.45% 63.59 NaCl 25,000 unit In 0.45 % NaCl 1 250ml.bag @ 7. 874 UNITS/KG/HR 10 mls/hr IV .Q24H [facility] Rx#: [id number] Output: Urine 1034 0365 Other: Voiding Method Indwelling Catheter Indwelling Catheter - Exam General Appearance: Obese looks older than his age in no respiratory distress had IPAP on at the time. Family members at bedside. Neck HEENT: Supple, no lymphadenopathy, no thyroid enlargement, no carotid bruits. Lungs: Scattered coarse wheezing throughout. Chest Wall: Decrease expansion with deep inspiration no tenderness and no deformity was found on exam, no costochondral pain or discomfort. Heart: Regular rate and rhythm, S1, S2 positive S3 positive JVD ,no rub or gallop. Back: Symmetric, severe scoliosis with L-spine discomfort. Abdomen: Distended positive bowel sound no organomegaly. Extremities: Extremities positive osteoarthritis with no edema decreased pulse. Pulses: 2+ and symmetric. Skin: Skin color, texture, tugor normal, no rashes or lesions. Neurologic: Alert oriented x3 cranial nerves II through XII intact, no motor deficit, no abnormal balance or gait. - Labs CBC & Chem 7: 03/13/19 05:49 03/12/19 03:34 Labs: Abnormal Lab Results - Last 24 Hours (Table) 03/12/19 03/12/19 03/13/19 Range/Units 10:49 22:27 05:49 RBC 3.79 L (4.30-5.90) m/uL Hgb 12.1 L (13.0-17.5) gm/dL Hct 35.4 L (39.0-53.0) % APTT 34.8 H (22.0-30.0) sec Triglycerides 174 H (<150) mg/dL HDL Cholesterol 33 L (40-60) mg/dL 03/13/19 Range/Units 05:49 RBC (4.30-5.90) m/uL Hgb (13.0-17.5) gm/dL Hct (39.0-53.0) % APTT 49.9 H (22.0-30.0) sec Triglycerides (<150) mg/dL HDL Cholesterol (40-60) mg/dL Assessment and Plan Plan: 1 acute hypoxic respiratory failure: Combination of acute cardiac pulmonary edema along, ischemic cardiomyopathy, acute systolic heart failure and acute NC. Will treat underlying disease continue BiPAP and if patient declined might require to be on ventilator pulmonary consultation was obtained. 2 acute pulmonary edema: Most likely cardiogenic from acute NC had happen in the last 24 hours which affected the heart muscle and created cardiogenic shock patient will be seen cardiology continue supportive care continue diuretics O2 beta anil and keep watching patient for any arrhythmia. 3 acute non-ST elevated myocardial infarction. Status post heart catheterization today. 4 COPD: Patient still on acute respiratory acidosis: Continue DuoNeb Pulmicort and steroid continue O2 and BiPAP. 5 nicotine dependency: Continue a Chin nicotine patch. 6 severe hyperglycemia: Continue Accu-Chek with sliding scales coverage. 7 bipolar disorders and schizoaffective disorders has been on Depakote continue medication. 8 DVT prophylaxis: Patient is on heparin drip. 9 GI prophylaxis: Patient will continue on Pepcid 20 mg IV every 12 hours. CODE STATUS: Full code. Discharge plan: Home possibly with homecare, patient may qualify for home O2 for chronic hypoxic respiratory failure. Impression and plan of care have been directed as dictated by the signing physician. Latrice Pierre nurse practitioner acting as scribe for signing physician.
[2019-03-13] MEDS: ISOSORBIDE MONONITRATE ER 30 MG TAB.ER.24H PO SCH (15:43)
[2019-03-13] MEDS: guaiFENesin 600 MG TABLET.ER PO SCH ×2 (16:04→22:28)
[2019-03-13] MEDS: DIVALPROEX 500 MG TABLET.DR PO SCH (20:56)
[2019-03-13] MEDS: SODIUM CHLORIDE 0.9% 1,000 ML IV SCH (20:56)
[2019-03-13] MEDS: risperiDONE 2 MG TAB PO SCH (22:28)
[2019-03-13] MEDS: IBUPROFEN 400 MG TAB PO SCH (23:19)
[2019-03-14] MEDS: HEPARIN SODIUM,PORCINE 5,000 UNIT/ML 1 ML VIAL SQ SCH ×2 (01:34→09:08)
[2019-03-14 07:41] LABS: Basophils % (A) 1 %; Eosinophils # (A) 0.1 k/uL (0-0.7); Eosinophils % (A) 2 %; HGB 12.4 gm/dL (13.0-17.5); Lymphocytes % (A) 34 %; MCH 31.8 pg (25.0-35.0); MCHC 33.5 g/dL (31.0-37.0); Mean Platelet Volume 8.2; Monocytes # (A) 0.5 k/uL (0-1.0); Monocytes % (A) 9 %; Neutrophils # (A) 3.1 k/uL (1.3-7.7); Neutrophils % (A) 52 %; Platelet Count 239 k/uL (150-450); RBC 3.89 m/uL (4.30-5.90); RDW 12.8 % (11.5-15.5); WBC 5.9 k/uL (3.8-10.6)
[2019-03-14] MEDS: IPRATROPIUM-ALBUTEROL 3 ML NEB INHALATION SCH ×4 (07:45→19:37)
[2019-03-14 07:57] LABS: INR 0.9 (<1.2)
[2019-03-14] MEDS: guaiFENesin 600 MG TABLET.ER PO SCH ×2 (09:06→21:05)
[2019-03-14] MEDS: hydrALAZINE HCL 25 MG TAB PO SCH ×2 (09:06→21:05)
[2019-03-14] MEDS: IBUPROFEN 400 MG TAB PO SCH (09:06)
[2019-03-14] MEDS: ISOSORBIDE MONONITRATE ER 30 MG TAB.ER.24H PO SCH (09:06)
[2019-03-14] MEDS: FUROSEMIDE 10 MG/ML 4 ML VIAL IV SCH ×3 (09:07→23:18)
[2019-03-14] MEDS: FAMOTIDINE 20 MG/2 ML VIAL IV SCH ×2 (09:07→21:09)
[2019-03-14] MEDS: ASPIRIN 81 MG PO SCH (09:07)
[2019-03-14] MEDS: ATORVASTATIN 40 MG TAB PO SCH (09:07)
[2019-03-14 10:04] LABS: ALT 44 U/L (21-72); AST 46 U/L (17-59); Albumin 3.5 g/dL (3.5-5.0); Alkaline Phosphatase 54 U/L (38-126); Anion Gap 6 mmol/L; Blood Urea Nitrogen 23 mg/dL (9-20); Calcium 8.4 mg/dL (8.4-10.2); Carbon Dioxide 34 mmol/L (22-30); Chloride 95 mmol/L (98-107); Glucose 109 mg/dL (74-99); Sodium 135 mmol/L (137-145); Total Bilirubin 0.7 mg/dL (0.2-1.3); Total Protein 6.2 g/dL (6.3-8.2)
[2019-03-14] MEDS ORDERED: DEXTROSE 5% IN WATER 100 ML with AMIODARONE 150 MG IV ONE (11:30)
[2019-03-14] MEDS ORDERED: AMIODARONE 360 MG in DEXTROSE 5% IN WATER 200 ML IV ONE ×2 (11:40)
[2019-03-14] MEDS: METOPROLOL SUCCINATE (ER) 25 MG TAB.ER.24H PO SCH (12:15)
[2019-03-14] MEDS: APIXABAN 5 MG TAB PO SCH ×2 (12:15→21:08)
--- NOTE | 2019-03-14 14:21 | P.PN ---
Subjective Progress Note Date: 03/14/19 Objective - Vital Signs Vital signs: Vital Signs Temp 98.6 F 03/14/19 04:00 Pulse 104 H 03/14/19 11:52 Resp 18 03/14/19 04:00 BP 106/65 03/14/19 04:00 Pulse Ox 94 L 03/14/19 07:45 Intake & Output 03/13/19 03/14/19 03/14/19 18:59 06:59 18:59 Intake Total 290 250 Output Total 1925 379 Balance -1635 -379 250 Weight 124.5 kg Intake: IV 150 normal saline 100 Intake, IV Titration 140 Amount Sodium Chloride 0.9% 1, 140 000 ml @ 20 mls/hr IV . Q24H [facility] Rx#:[id number] Oral 250 Output: Urine 1927 379 Other: Voiding Method Indwelling Catheter Indwelling Catheter # Voids 2 2 - Labs CBC & Chem 7: 03/14/19 06:45 03/14/19 06:40 Labs: Abnormal Lab Results - Last 24 Hours (Table) 03/14/19 03/14/19 Range/Units 06:40 06:45 RBC 3.89 L (4.30-5.90) m/uL Hgb 12.4 L (13.0-17.5) gm/dL Hct 37.0 L (39.0-53.0) % Sodium 135 L (137-145) mmol/L Chloride 95 L (98-107) mmol/L Carbon Dioxide 34 H (22-30) mmol/L BUN 23 H (9-20) mg/dL Glucose 109 H (74-99) mg/dL Total Protein 6.2 L (6.3-8.2) g/dL
--- NOTE | 2019-03-14 14:51 | P.PN ---
Subjective Progress Note Date: 03/14/19 53 year-old morbidly obese male one of Dr. mckinney's patient with past medical history of COPD, chronic smoking, schizoaffective disorders along with osteoarthritis and chronic lower back pain who presented to the emergency department at [facility] today complaining of worsening shortness of breath started last night become much worse over the last few hours patient has been having significant dyspnea hypoxia and worsening cough and shortness of breath. The time was seen surprisingly his enzyme were quite bit elevated troponin was over 14 patient chest x-ray showed acute pulmonary edema he was started on BiPAP was very close to be intubated pulmonary consultation was done patient EKG showed first-degree block with wider QRS complex with left bundle- branch block having multiple PVCs and PACs with no V. tach at the time no A. fib at the point. Family were around patient and family were told that he had acute myocardial infarction sometime in the last day or 2 become much worse probably cause ischemic cardiopathy and had a created much worsening acute pulmonary edema cardiogenic in origin. Patient was started on O2 along with updraft treatment as well nicotine patch at admitted to the ICU afterward. Patient will be going to the quality assurance qa lab analyst with his more stable or hopefully over the next 24 hours. 03/12: Patient remains in the intensive care unit. Echocardiogram reveals EF of 35-40% with moderate concentric left ventricular hypertrophy, mild mitral regurgitation, technically difficult study. Chest x-ray showing correlate for heart failure. Patient is followed by cardiology with plan for heart catheterization today. Patient has been afebrile, heart rate in the 90s to low 100s, blood pressure 108/82, patient has been on BiPAP and pulse ox 93 percent. CBC is normal, BUN 28 creatinine 0.91. Sodium 131, potassium 5.2, chloride 98 and CO2 21. Repeat troponins have been 14.6 and 11.5. Triglycerides 174, cholesterol 149, LDL 81 and HDL 33. Stool for occult blood was negative. 03/13: Patient remains in intensive care unit. He was on BiPAP during the night and high flow nasal cannula during the day. Has been afebrile, heart rate in 80s and 90s, blood pressure 117/64. Patient remains on heparin drip. White count is 9.1, hemoglobin 12.1. Patient underwent heart catheterization this morning which revealed normal coronary arteries, no occlusive disease. Patient has been downgraded to cardiac stepdown unit. Patient is very anxious to be discharged home but after long discussion he is agreeable to stay. He is currently on IV Lasix with good urine output. Continues to have wheezing and is requesting Mucinex. Mucinex has been added. Patient will be evaluated for home O2 need. Possible discharge home in the next 24-48 hours. 03/14: Patient remains on amiodarone drip, Lasix 40 mg IV every 8 hours. Patient went into atrial fibrillation with RVR this afternoon. Cardiology has started him on Toprol-XL, eliquis 5 mg twice daily. Patient has been afebrile, heart rate in the low 100s, blood pressure 102/66, pulse ox 96% on 2 L nasal cannula. Repeat lab work shows a white count of 5.9, hemoglobin 12.4. BUN 23 and creatinine 0.83. Patient is denying any new complaints. He is much more cooperative from yesterday and agreeable to stay in the hospital. Hopefully discharge in the next 24-48 hours. Review of Systems CONSTITUTIONAL: obese and no acute respiratory distress, No fever, no chills EYES: No icterus sclerae, no conjunctivitis. EARS, NOSE, MOUTH, THROAT, and FACE: No sore throat, lymphadenopathy, carotid bruits or deformity. RESPIRATORY: Positive shortness of breath cough wheezes. CARDIOVASCULAR: Denies chest pain PND orthopnea palpitation. GASTROINTESTINAL: No Abd pain, Nausea or vomiting, no Diarrhea or constipation, No GI Bleed, no distention or masses. GENITOURINARY: Negative for Hematuria or UTI, no kidney stones. INTEGUMENT/BREAST: Negative for any muscular injury with mild osteoarthritis.. HEMATOLOGIC/LYMPHATIC: Negative for bleed or purpura. MUSCULOSKELTAL: Negative for Myalgia or arthralgia. NEURLOGICAL: No LOC, Sz or syncope, blurred vision dizziness or abnormality.. BEHAVIORAL/PSYCH: Negative. ENDOCRINE: Negative. Objective - Vital Signs Vital signs: Vital Signs Temp 98.6 F 03/14/19 04:00 Pulse 92 03/14/19 07:58 Resp 18 03/14/19 04:00 BP 106/65 03/14/19 04:00 Pulse Ox 94 L 03/14/19 07:45 Intake & Output 03/13/19 03/14/19 03/14/19 18:59 06:59 18:59 Intake Total 290 Output Total 1925 379 Balance -1635 -379 Weight 124.5 kg Intake: IV 150 normal saline 100 Intake, IV Titration 140 Amount Sodium Chloride 0.9% 1, 140 000 ml @ 20 mls/hr IV . Q24H [facility] Rx#:[id number] Output: Urine 1925 379 Other: Voiding Method Indwelling Catheter Indwelling Catheter # Voids 2 2 - Exam General Appearance: Obese looks older than his age in no respiratory distress while resting in bed Neck HEENT: Supple, no lymphadenopathy, no thyroid enlargement, no carotid bruits. Lungs: Scattered coarse wheezing throughout. Chest Wall: Decrease expansion with deep inspiration no tenderness and no deformity was found on exam, no costochondral pain or discomfort. Heart: Regular rate and rhythm, S1, S2 positive S3 positive JVD ,no rub or gallop. Back: Symmetric, severe scoliosis with L-spine discomfort. Abdomen: Distended positive bowel sound no organomegaly. Extremities: Extremities positive osteoarthritis with no edema decreased pulse. Pulses: 2+ and symmetric. Skin: Skin color, texture, tugor normal, no rashes or lesions. Neurologic: Alert oriented x3 cranial nerves II through XII intact, no motor deficit, no abnormal balance or gait. - Labs CBC & Chem 7: 03/14/19 06:45 03/14/19 06:40 Labs: Abnormal Lab Results - Last 24 Hours (Table) 03/14/19 Range/Units 06:45 RBC 3.89 L (4.30-5.90) m/uL Hgb 12.4 L (13.0-17.5) gm/dL Hct 37.0 L (39.0-53.0) % Assessment and Plan Plan: 1 acute hypoxic respiratory failure: Combination of acute cardiac pulmonary edema along, ischemic cardiomyopathy, acute systolic heart failure and acute MD. Will treat underlying disease continue BiPAP and if patient declined might require to be on ventilator pulmonary consultation was obtained. 2 acute pulmonary edema: Most likely cardiogenic from acute MD had happen in the last 24 hours which affected the heart muscle and created cardiogenic shock patient will be seen cardiology continue supportive care continue diuretics O2 beta anil and keep watching patient for any arrhythmia. 3 acute non-ST elevated myocardial infarction. Status post heart catheterization today. 4 COPD: Patient still on acute respiratory acidosis: Continue DuoNeb Pulmicort and steroid continue O2 and BiPAP. 5 nicotine dependency: Continue a Chin nicotine patch. 6 severe hyperglycemia: Continue Accu-Chek with sliding scales coverage. 7 bipolar disorders and schizoaffective disorders has been on Depakote continue medication. 8 DVT prophylaxis: Patient is on heparin drip. 9 GI prophylaxis: Patient will continue on Pepcid 20 mg IV every 12 hours. 10. New onset A. fib with RVR, paroxysmal atrial fibrillation. Cardiology has started him on amiodarone drip, eliquis, Toprol-XL 25 mg daily. CODE STATUS: Full code. Discharge plan: Home possibly with homecare, patient may qualify for home O2 for chronic hypoxic respiratory failure. Impression and plan of care have been directed as dictated by the signing mark mccord. Latrice Pierre nurse practitioner acting as scribe for signing physician.
--- NOTE | 2019-03-14 15:20 | P.PN ---
Subjective Progress Note Date: 03/14/19 Principal diagnosis: Acute hypoxemic respiratory failure secondary to acute exacerbation of congestive heart failure with impaired ejection fraction, acute non-ST elevated myocardial infarction This is a 53-year-old white male patient of Dr. Palacio, past medical history of COPD, current every day smoker, bipolar disorder, schizophrenia, osteoarthritis, chronic back pain, presented to the emergency department on 03/11/2019 at 1147 with complaints of difficulty breathing that started last night and became progressively worse today. Patient at first believed that it was related to some bad tuna he had eaten last night, he did have a couple of episodes of vomiting. Unclear if he had any fevers. Patient could not sleep well last night related to his dyspnea, nausea and vomiting. Did complain of chest discomfort, she is currently on BiPAP, he is quite irritable, difficult to interview. Most of the patient's history was obtained from the chart. Denied any leg pain or swelling. EKG showed sinus rhythm with first-degree AV block, left bundle branch block and nonspecific T waves, repeat EKG showed sinus rhythm with a rate of 98 left bundle branch block and nonspecific ST and T wave changes. Chest x-ray showed no evidence for acute pulmonary disease. Lab work did not show any leukocytosis, d-dimer was elevated at 1.14, CT angios chest did not show any evidence of definite pulmonary embolism, the examination was limited related to patient's motion and resultant artifact. Small bilateral pleural effusions and pulmonary venous congestion with scattered groundglass infiltrates affecting early features of congestive heart failure. No focal pneumonia was identified. Permanent was elevated at 15,003 100, creatinine kinase was 887, AST was 1:30, proBNP was 11,000. Patient was given a dose of IV Lasix, he was seen by cardiology in the emergency department and was started on maintenance dose of Lasix 40 mg every 8 hours. Patient was quite tachypneic, an d hypoxemic, she was placed on BiPAP support, currently with pressures of 75 and FiO2 of 100%. IPap was increased to 15, stat blood gas was obtained and showed pO2 of 198, pCO2 36, pH of 7.33. Will drop FiO2 down to 70%. On 03/12/2019 patient seen in follow-up in the intensive care unit, he remains on BiPAP support, current with pressures of 15/5, and FiO2 of 70%, with pulse ox of 95%, FiO2 was brought down to 60%. Apparently last the patient was given a trial off the BiPAP, and it did desaturate into the 80s, became very short of breath, and was placed back on BiPAP support. he remains on IV diuretics, I&O's are difficult to estimate, as patient is voiding. Today's labs have been revi ewed, CBC is unremarkable, sodium is 131, potassium is 5.2, chloride is 98, CO2 is 21, B1 is 28, creatinine 0.91. Second and third troponin are trending down, at 14.6, and 11.5 respectively. No Complaints of chest pain today, patient has coarse breath sounds, bilaterally. His chest x-ray has been reviewed and showed no pneumothorax or pleural effusion, changes of congestive heart failure. On 03/13/2019 patient seen in follow-up in the intensive care unit, he had just returned from the [employer]ology [employer] after having a heart catheterization done, and patient had normal coronary arteries, no occlusive disease. Patient is back in the room, he is currently on 7 L per high flow nasal cannula, did wear BiPAP support last night, currently he is in no acute distress, no complaint of shortness of breath or chest pain, he is maintaining saturation around 93% on 7 L. Afebrile, hemodynamically stable, no new chest x-ray today, he 18 years on IV Lasix, he is in -4195 mL over the last 24 hours. Lung sounds are positive for coarse breath sounds bilaterally. No use of accessory muscles of breathing. Patient is calm and comfortable, 0.9 normal saline at a rate of 20 ML per hour, sinus rhythm on the monitor. Cardiology is following and making adjustments to patient's medications. On 03/14/2090 patient seen in follow-up on selective care unit. He is awake and alert, in no acute distress, FiO2 is down to 2 L of oxygen per nasal cannula, with a pulse ox of 96%, patient is afebrile, hemodynamically stable, no complaints of chest pain. Patient remains on IV Lasix, 40 mg every 8 hours, he went into A. fib with RVR this afternoon, patient was started on IV amiodarone, and Toprol-XL, and oral anticoagulation in the form of Eliquis. No specific complaints, no new chest x-rays. He is maintaining negative fluid balance, - 2014 mL Objective - Vital Signs Vital signs: Vital Signs Temp 97.4 F L 03/14/19 12:10 Pulse 104 H 03/14/19 13:15 Resp 18 03/14/19 13:15 BP 102/66 03/14/19 13:15 Pulse Ox 96 03/14/19 13:15 Intake & Output 03/13/19 03/14/19 03/14/19 18:59 06:59 18:59 Intake Total 290 250 Output Total 1925 379 400 Balance -1635 -379 -150 Weight 124.5 kg Intake: IV 150 normal saline 100 Intake, IV Titration 140 Amount Sodium Chloride 0.9% 1, 140 000 ml @ 20 mls/hr IV . Q24H [facility] Rx#:[id number] Oral 250 Output: Urine 4 379 400 Other: Voiding Method Indwelling Catheter Indwelling Catheter # Voids 2 2 - Exam GENERAL EXAM: Alert, 53-year-old white male on 2 L per high flow nasal cannula with a pulse ox of 93%, comfortable less tachypneic on today's exam HEAD: Normocephalic/atraumatic. EYES: Normal reaction of pupils, equal size. Conjunctiva pink, sclera white. NOSE: Clear with pink turbinates. THROAT: No erythema or exudates. NECK: No masses, no JVD, no thyroid enlargement, no adenopathy. CHEST: No chest wall deformity. Symmetrical expansion. LUNGS: Equal air entry with diminished breath sounds, coarse lung sounds bilaterally CVS: Irregular rate and rhythm, normal S1 and S2, no gallops, no murmurs, no rubs ABDOMEN: Soft, nontender. No hepatosplenomegaly, normal bowel sounds, no guarding or rigidity. EXTREMITIES: No clubbing, no edema, no cyanosis, 2+ pulses and upper and lower extremities. MUSCULOSKELETAL: Muscle strength and tone normal. SPINE: No scoliosis or deformity SKIN: No rashes CENTRAL NERVOUS SYSTEM: Alert and oriented -3. No focal deficits, tone is normal in all 4 extremities. PSYCHIATRIC: Alert and oriented -3. Appropriate affect. Intact judgment and insight. - Labs CBC & Chem 7: 03/14/19 06:45 03/14/19 06:40 Labs: Abnormal Lab Results - Last 24 Hours (Table) 03/14/19 03/14/19 Range/Units 06:40 06:45 RBC 3.89 L (4.30-5.90) m/uL Hgb 12.4 L (13.0-17.5) gm/dL Hct 37.0 L (39.0-53.0) % Sodium 135 L (137-145) mmol/L Chloride 95 L (98-107) mmol/L Carbon Dioxide 34 H (22-30) mmol/L BUN 23 H (9-20) mg/dL Glucose 109 H (74-99) mg/dL Total Protein 6.2 L (6.3-8.2) g/dL Assessment and Plan Plan: Assessment: #1. Acute hypoxemic respiratory failure secondary to acute exacerbation of congestive heart failure, with reduced ejection fraction #2. Elevated d-dimer, CT angios chest did not show any clear evidence of pulmonary embolism, did show small bilateral pleural effusions, pulmonary venous congestion, reflecting changes of congestive heart failure #3. Acute non-ST elevated myocardial infarction #4. COPD #5. Chronic nicotine dependence #6. Chronic back pain #7. Bipolar disorder, schizophrenia #8. New onset A. fib with RVR Plan: Continue weaning FiO2, patient is maintaining negative fluid balance, his breathing easier, FiO2 is down to 2 L, he did go into A. fib RVR, currently on amiodarone drip and oral anticoagulation, otherwise is clinically stable, he is improving, no complaints of chest pain. I performed a history & physical examination of the patient and discussed their management with my nurse practitioner, Charlene Elmore. I reviewed the nurse practitioner's note and agree with the documented findings and plan of care. Lung sounds are positive for diminished breath sounds. The findings and the impression was discussed with the patient. I attest to the documentation by the nurse practitioner. Time with Patient: Less than 30
[2019-03-14] MEDS: AMIODARONE 300 MG in DEXTROSE 5% IN WATER 250 ML IV SCH ×2 (17:59)
[2019-03-14] MEDS: SODIUM CHLORIDE 0.9% 1,000 ML IV SCH (21:05)
[2019-03-14] MEDS: risperiDONE 2 MG TAB PO SCH (21:08)
[2019-03-14] MEDS: DIVALPROEX 500 MG TABLET.DR PO SCH (21:08)
[2019-03-15] MEDS: AMIODARONE 300 MG in DEXTROSE 5% IN WATER 250 ML IV SCH ×2 (04:40)
[2019-03-15 04:47] VITALS: RESP 16
[2019-03-15] MEDS: ASPIRIN 81 MG PO SCH (08:36)
[2019-03-15] MEDS: guaiFENesin 600 MG TABLET.ER PO SCH (08:37)
[2019-03-15] MEDS: ATORVASTATIN 40 MG TAB PO SCH (08:37)
[2019-03-15] MEDS: APIXABAN 5 MG TAB PO SCH (08:37)
[2019-03-15] MEDS: ISOSORBIDE MONONITRATE ER 30 MG TAB.ER.24H PO SCH (08:37)
[2019-03-15] MEDS: hydrALAZINE HCL 25 MG TAB PO SCH (08:37)
[2019-03-15] MEDS: METOPROLOL SUCCINATE (ER) 25 MG TAB.ER.24H PO SCH (08:38)
[2019-03-15] MEDS: IPRATROPIUM-ALBUTEROL 3 ML NEB INHALATION SCH ×2 (08:48→13:00)
[2019-03-15] MEDS ORDERED: LISINOPRIL 2.5 MG TAB PO SCH (09:00)
[2019-03-15] MEDS: FUROSEMIDE 10 MG/ML 4 ML VIAL IV SCH (10:19)
[2019-03-15] MEDS: FAMOTIDINE 20 MG/2 ML VIAL IV SCH (10:20)
--- NOTE | 2019-03-15 12:26 | PN ---
PROGRESS NOTE Lane is a 53-year-old gentleman who is admitted to hospital with cardiomyopathy and congestive heart failure. He is on IV amiodarone and will be switched to p.o. amiodarone today. He is doing better. Does not have any leg edema. Ambulating without any problems. Underwent cardiac catheterization that did not reveal significant obstructive CAD. The patient is on Eliquis 5 b.i.d., aspirin, Lipitor 40 q. daily, Lasix 40 mg IV q.8, which I am going to switch to p.o., Toprol-XL 25 mg daily. PHYSICAL EXAMINATION: On exam, patient is comfortable at rest. Vital signs are stable. There is no jugular venous distention. Chest exam reveals good air entry bilaterally. Heart exam reveals first and second heart sounds. No gallop. No murmur. No rub. Abdomen is soft, nontender. Examination of extremities did not reveal any edema. Peripheral pulses are felt. ASSESSMENT: 1. Dilated cardiomyopathy. 2. Paroxysmal atrial fibrillation. 3. Chronic systolic heart failure. PLAN: Will change Lasix to p.o. amiodarone to p.o. Continue the Toprol. Stable for discharge. MMODL / IJN: [id number] /
[2019-03-15 13:14] VITALS: BP 112/66; PULSE 74; TEMP 97.2
--- NOTE | 2019-03-15 14:01 | P.PN ---
Subjective Progress Note Date: 03/15/19 Principal diagnosis: Acute hypoxemic respiratory failure secondary to acute exacerbation of congestive heart failure with impaired ejection fraction, acute non-ST elevated myocardial infarction This is a 53-year-old white male patient of Dr. Palacio, past medical history of COPD, current every day smoker, bipolar disorder, schizophrenia, osteoarthritis, chronic back pain, presented to the emergency department on 03/11/2019 at 1147 with complaints of difficulty breathing that started last night and became progressively worse today. Patient at first believed that it was related to some bad tuna he had eaten last night, he did have a couple of episodes of vomiting. Unclear if he had any fevers. Patient could not sleep well last night related to his dyspnea, nausea and vomiting. Did complain of chest discomfort, she is currently on BiPAP, he is quite irritable, difficult to interview. Most of the patient's history was obtained from the chart. Denied any leg pain or swelling. EKG showed sinus rhythm with first-degree AV block, left bundle branch block and nonspecific T waves, repeat EKG showed sinus rhythm with a rate of 98 left bundle branch block and nonspecific ST and T wave changes. Chest x-ray showed no evidence for acute pulmonary disease. Lab work did not show any leukocytosis, d-dimer was elevated at 1.14, CT angios chest did not show any evidence of definite pulmonary embolism, the examination was limited related to patient's motion and resultant artifact. Small bilateral pleural effusions and pulmonary venous congestion with scattered groundglass infiltrates affecting early features of congestive heart failure. No focal pneumonia was identified. Permanent was elevated at 15,003 100, creatinine kinase was 887, AST was 1:30, proBNP was 11,000. Patient was given a dose of IV Lasix, he was seen by cardiology in the emergency department and was started on maintenance dose of Lasix 40 mg every 8 hours. Patient was quite tachypneic, a nd hypoxemic, she was placed on BiPAP support, currently with pressures of 75 and FiO2 of 100%. IPap was increased to 15, stat blood gas was obtained and showed pO2 of 198, pCO2 36, pH of 7.33. Will drop FiO2 down to 70%. On 03/12/2019 patient seen in follow-up in the intensive care unit, he remains on BiPAP support, current with pressures of 15/5, and FiO2 of 70%, with pulse ox of 95%, FiO2 was brought down to 60%. Apparently last the patient was given a trial off the BiPAP, and it did desaturate into the 80s, became very short of breath, and was placed back on BiPAP support. he remains on IV diuretics, I&O's are difficult to estimate, as patient is voiding. Today's labs have been rev iewed, CBC is unremarkable, sodium is 131, potassium is 5.2, chloride is 98, CO2 is 21, B1 is 28, creatinine 0.91. Second and third troponin are trending down, at 14.6, and 11.5 respectively. No Complaints of chest pain today, patient has coarse breath sounds, bilaterally. His chest x-ray has been reviewed and showed no pneumothorax or pleural effusion, changes of congestive heart failure. On 03/13/2019 patient seen in follow-up in the intensive care unit, he had just returned from the [facility] after having a heart catheterization done, and patient had normal coronary arteries, no occlusive disease. Patient is back in the room, he is currently on 7 L per high flow nasal cannula, did wear BiPAP support last night, currently he is in no acute distress, no complaint of shortness of breath or chest pain, he is maintaining saturation around 93% on 7 L. Afebrile, hemodynamically stable, no new chest x-ray today, he 18 years on IV Lasix, he is in -4195 mL over the last 24 hours. Lung sounds are positive for coarse breath sounds bilaterally. No use of accessory muscles of breathing. Patient is calm and comfortable, 0.9 normal saline at a rate of 20 ML per hour, sinus rhythm on the monitor. Cardiology is following and making adjustments to patient's medications. On 03/14/2090 patient seen in follow-up on selective care unit. He is awake and alert, in no acute distress, FiO2 is down to 2 L of oxygen per nasal cannula, with a pulse ox of 96%, patient is afebrile, hemodynamically stable, no complaints of chest pain. Patient remains on IV Lasix, 40 mg every 8 hours, he went into A. fib with RVR this afternoon, patient was started on IV amiodarone, and Toprol-XL, and oral anticoagulation in the form of Eliquis. No specific complaints, no new chest x-rays. He is maintaining negative fluid balance, - 2014 mL The patient is seen today 03/15/2019 in follow-up on the selective care unit. He is currently sitting up in bed. Awake and alert in no acute distress. He denies any chest pain, palpitations lightheadedness or dizziness. He denies any worsening shortness of breath, cough or congestion. He remains on DuoNeb inhalations and he is continued on amiodarone 200 mg twice a day. Anticoagulated with Eliquis. Objective - Vital Signs Vital signs: Vital Signs Temp 97.2 F L 03/15/19 12:00 Pulse 86 03/15/19 13:11 Resp 16 03/15/19 12:00 BP 112/66 03/15/19 12:00 Pulse Ox 93 L 03/15/19 12:00 Intake & Output 03/14/19 03/15/19 03/15/19 18:59 06:59 18:59 Intake Total 1280 250 960 Output Total 600 400 Balance 680 -150 960 Weight 125 kg Intake: IV 80 normal saline 80 Intake, IV Titration 300 250 Amount Amiodarone 300 mg In 250 Dextrose 5% in Water 250 ml @ 0.5 MG/MIN 25 mls/hr IV .Q10H KAYE Rx#: [id number] Amiodarone 360 mg In 200 Dextrose 5% in Water 200 ml @ 1 MG/MIN 33.333 mls/ hr IV .Q6H ONE Rx#: [id number] Dextrose 5% in Water 100 100 ml @ 618 mls/hr IV .Q10M ONE with Amiodarone 150 mg Rx#:[id number] Oral 900 960 Output: Urine 600 400 Other: Voiding Method Indwelling Catheter # Voids 3 1 - Exam GENERAL EXAM: Alert, 53-year-old male on room air with a pulse ox of 93%, comfortable HEAD: Normocephalic/atraumatic. EYES: Normal reaction of pupils, equal size. Conjunctiva pink, sclera white. NOSE: Clear with pink turbinates. THROAT: No erythema or exudates. NECK: No masses, no JVD, no thyroid enlargement, no adenopathy. CHEST: No chest wall deformity. Symmetrical expansion. LUNGS: Equal air entry with diminished breath sounds, coarse lung sounds bilaterally CVS: Irregular rate and rhythm, normal S1 and S2, no gallops, no murmurs, no rubs ABDOMEN: Soft, nontender. No hepatosplenomegaly, normal bowel sounds, no guarding or rigidity. EXTREMITIES: No clubbing, no edema, no cyanosis, 2+ pulses and upper and lower extremities. MUSCULOSKELETAL: Muscle strength and tone normal. SPINE: No scoliosis or deformity SKIN: No rashes CENTRAL NERVOUS SYSTEM: No focal deficits, tone is normal in all 4 extremities. PSYCHIATRIC: Alert and oriented -3. Appropriate affect. Intact judgment and insight. - Labs CBC & Chem 7: 03/14/19 06:45 03/14/19 06:40 Assessment and Plan Assessment: Assessment: #1. Acute hypoxemic respiratory failure secondary to acute exacerbation of congestive heart failure, with reduced ejection fraction #2. Elevated d-dimer, CT angios chest did not show any clear evidence of pulmonary embolism, did show small bilateral pleural effusions, pulmonary venous congestion, reflecting changes of congestive heart failure #3. Acute non-ST elevated myocardial infarction #4. COPD #5. Chronic nicotine dependence #6. Chronic back pain #7. Bipolar disorder, schizophrenia #8. New onset A. fib with RVR Plan: The patient was seen and evaluated by Dr. Mills. He is stable from the pulmonary standpoint. Okay to discharge home once cleared by cardiology. He should follow-up in our office in 1-2 weeks' time. He would benefit from full pulmonary function testing to evaluate the severity of his suspected COPD. Billy arguello make recommendations for her maintenance medications. He is again educated regarding the importance of complete smoking cessation. I, the cosigning physician, performed a history & physical examination of the patient. Lungs sounds with faint end expiratory wheeze, diminished. Maintaining good O2 saturations in the 90s on room air. I discussed the assessment and plan of care with my nurse practitioner, Keely Figueroa. I attest to the above note as dictated by her.
--- NOTE | 2019-03-15 14:35 | P.DS ---
Providers Date of admission: 03/11/19 15:26 Attending physician: Nikolas Auguste Consults: 03/11/19 15:26 Consult Physician Stat Consulting Provider: Jozef Mills Consult Reason/Comments: Dyspnea, critical care Do you want consulting provider notified?: Already Contacted Consult Physician Stat Consulting Provider: Cornelio Hodge Consult Reason/Comments: CHF/pulmonary edema Do you want consulting provider notified?: Already Contacted Primary care physician: [facility] Course: 53 year-old morbidly obese male one of Dr. mckinney's patient with past medical history of COPD, chronic smoking, schizoaffective disorders along with osteoarthritis and chronic lower back pain who presented to the emergency department at [facility] today complaining of worsening shortness of br eath started last night become much worse over the last few hours patient has been having significant dyspnea hypoxia and worsening cough and shortness of breath. The time was seen surprisingly his enzyme were quite bit elevated troponin was over 14 patient chest x-ray showed acute pulmonary edema he was started on BiPAP was very close to be intubated pulmonary consultation was done patient EKG showed first-degree block with wider QRS complex with left bundle- branch block having multiple PVCs and PACs with no V. tach at the time no A. fib at the point. Family were around patient and family were told that he had acute myocardial infarction sometime in the last day or 2 become much worse probably cause ischemic cardiopathy and had a created much worsening acute pulmonary edema cardiogenic in origin. Patient was started on O2 along with updraft treatment as well nicotine patch at admitted to the ICU afterward. Patient will be going to the label remover with his more stable or hopefully over the next 24 hours. 03/12: Patient remains in the intensive care unit. Echocardiogram reveals EF of 35-40% with moderate concentric left ventricular hypertrophy, mild mitral regurgitation, technically difficult study. Chest x-ray showing correlate for heart failure. Patient is followed by cardiology with plan for heart catheterization today. Patient has been afebrile, heart rate in the 90s to low 100s, blood pressure 108/82, patient has been on BiPAP and pulse ox 93 percent. CBC is normal, BUN 28 creatinine 0.91. Sodium 131, potassium 5.2, chloride 98 and CO2 21. Repeat troponins have been 14.6 and 11.5. Triglycerides 174, cholesterol 149, LDL 81 and HDL 33. Stool for occult blood was negative. 03/13: Patient remains in intensive care unit. He was on BiPAP during the night and high flow nasal cannula during the day. Has been afebrile, heart rate in 80s and 90s, blood pressure 117/64. Patient remains on heparin drip. White count is 9.1, hemoglobin 12.1. Patient underwent heart catheterization this morning which revealed normal coronary arteries, no occlusive disease. Patient has been downgraded to cardiac stepdown unit. Patient is very anxious to be discharged home but after long discussion he is agreeable to stay. He is currently on IV Lasix with good urine output. Continues to have wheezing and is requesting Mucinex. Mucinex has been added. Patient will be evaluated for home O2 need. Possible discharge home in the next 24-48 hours. 03/14: Patient remains on amiodarone drip, Lasix 40 mg IV every 8 hours. Patient went into atrial fibrillation with RVR this afternoon. Cardiology has started him on Toprol-XL, eliquis 5 mg twice daily. Patient has been afebrile, heart rate in the low 100s, blood pressure 102/66, pulse ox 96% on 2 L nasal cannula. Repeat lab work shows a white count of 5.9, hemoglobin 12.4. BUN 23 and creatinine 0.83. Patient is denying any new complaints. He is much more cooperative from yesterday and agreeable to stay in the hospital. Hopefully discharge in the next 24-48 hours. 03/15: Patient is off amiodarone drip, off oxygen, remain on updraft, remain on multi-medication, his A. fib is under control, cardiomyopathy has improved significantly. Patient is ready to be discharged home today. Review of Systems CONSTITUTIONAL: obese and no acute respiratory distress, No fever, no chills EYES: No icterus sclerae, no conjunctivitis. EARS, NOSE, MOUTH, THROAT, and FACE: No sore throat, lymphadenopathy, carotid bruits or deformity. RESPIRATORY: Positive shortness of breath cough wheezes. CARDIOVASCULAR: Denies chest pain PND orthopnea palpitation. GASTROINTESTINAL: No Abd pain, Nausea or vomiting, no Diarrhea or constipation, No GI Bleed, no distention or masses. GENITOURINARY: Negative for Hematuria or UTI, no kidney stones. INTEGUMENT/BREAST: Negative for any muscular injury with mild osteoarthritis.. HEMATOLOGIC/LYMPHATIC: Negative for bleed or purpura. MUSCULOSKELTAL: Negative for Myalgia or arthralgia. NEURLOGICAL: No LOC, Sz or syncope, blurred vision dizziness or abnormality.. BEHAVIORAL/PSYCH: Negative. ENDOCRINE: Negative. - Exam General Appearance: Obese looks older than his age in no respiratory distress while resting in bed Neck HEENT: Supple, no lymphadenopathy, no thyroid enlargement, no carotid bruits. Lungs: Scattered coarse wheezing throughout. Chest Wall: Decrease expansion with deep inspiration no tenderness and no deformity was found on exam, no costochondral pain or discomfort. Heart: Regular rate and rhythm, S1, S2 positive S3 positive JVD ,no rub or gallop. Back: Symmetric, severe scoliosis with L-spine discomfort. Abdomen: Distended positive bowel sound no organomegaly. Extremities: Extremities positive osteoarthritis with no edema decreased pulse. Pulses: 2+ and symmetric. Skin: Skin color, texture, tugor normal, no rashes or lesions. Neurologic: Alert oriented x3 cranial nerves II through XII intact, no motor deficit, no abnormal balance or gait. Assessment and Plan Plan: 1 severe cardiomyopathy: Nonischemic type, not a clear etiology post heart cath patient will continue current medical management including Micheal, beta anil, hydralazine, Lasix and Aldactone. Echocardiogram probably need to be repeated again in 4 weeks. 2 A. fib with RVR: Patient remain on amiodarone along with beta anil was started on anticoagulation with a request continue medication. 3 acute hypoxic respiratory failure: Combination of acute cardiac pulmonary edema along, ischemic cardiomyopathy, acute systolic heart failure and acute NH. Will treat underlying disease continue BiPAP and if patient declined might require to be on ventilator pulmonary consultation was obtained. 4 acute pulmonary edema: Most likely cardiogenic from acute NH had happen in the last 24 hours which affected the heart muscle and created cardiogenic shock patient will be seen cardiology continue supportive care continue diuretics O2 beta anil and keep watching patient for any arrhythmia. 5 acute non-ST elevated myocardial infarction. Heart cath was negative for any major stenosis. 6 COPD: Patient still on acute respiratory acidosis: Continue DuoNeb Pulmicort and steroid continue O2 and BiPAP. 7 nicotine dependency: Continue a Chin nicotine patch. 8 severe hyperglycemia: Continue Accu-Chek with sliding scales coverage. 9 bipolar disorders and schizoaffective disorders has been on Depakote continue medication. Patient is doing very well today is off O2 able to ambulate and walk all his medication were finalized patient be discharged home today to follow-up with Dr. Subramanian cardiology soon. Patient Condition at Discharge: Stable Plan - Discharge Summary Discharge Rx Participant: No New Discharge Prescriptions: New hydrALAZINE HCL [Apresoline] 25 mg PO BID #60 tab Aspirin 81 mg PO DAILY chew Amiodarone [Cordarone] 200 mg PO BID #60 tab Apixaban [Eliquis] 5 mg PO BID #60 tab Isosorbide Mononitrate ER [Imdur] 30 mg PO DAILY #30 tab.er.24h Furosemide [Lasix] 40 mg PO BID@0900,1600 #60 tab Atorvastatin [Lipitor] 40 mg PO DAILY #30 tab Metoprolol Succinate (ER) [Toprol XL] 25 mg PO DAILY #30 tab.er.24h Albuterol Inhaler [Ventolin Hfa Inhaler] 2 puff INHALATION RT-Q6H PRN #1 inhaler PRN Reason: Shortness Of Breath Lisinopril [Zestril] 2.5 mg PO DAILY #30 tab Continue risperiDONE [RisperDAL] 4 mg PO HS Omeprazole 20 mg PO DAILY PRN PRN Reason: Heartburn Ibuprofen [Motrin Ib] 800 mg PO Q6H PRN PRN Reason: Pain Divalproex [Depakote] 1,500 mg PO HS Discharge Medication List Divalproex [Depakote] 1,500 mg PO HS 03/11/19 [History] Ibuprofen [Motrin Ib] 800 mg PO Q6H PRN 03/11/19 [History] Omeprazole 20 mg PO DAILY PRN 03/11/19 [History] risperiDONE [RisperDAL] 4 mg PO HS 03/11/19 [History] Albuterol Inhaler [Ventolin Hfa Inhaler] 2 puff INHALATION RT-Q6H PRN #1 inhaler 03/15/19 [Rx] Amiodarone [Cordarone] 200 mg PO BID #60 tab 03/15/19 [Rx] Apixaban [Eliquis] 5 mg PO BID #60 tab 03/15/19 [Rx] Aspirin 81 mg PO DAILY chew 03/15/19 [Rx] Atorvastatin [Lipitor] 40 mg PO DAILY #30 tab 03/15/19 [Rx] Furosemide [Lasix] 40 mg PO BID@0900,1600 #60 tab 03/15/19 [Rx] Isosorbide Mononitrate ER [Imdur] 30 mg PO DAILY #30 tab.er.24h 03/15/19 [Rx] Lisinopril [Zestril] 2.5 mg PO DAILY #30 tab 03/15/19 [Rx] Metoprolol Succinate (ER) [Toprol XL] 25 mg PO DAILY #30 tab.er.24h 03/15/19 [Rx] hydrALAZINE HCL [Apresoline] 25 mg PO BID #60 tab 03/15/19 [Rx] Follow up Appointment(s)/Referral(s): [facility] [Provider Group] - 03/22/19 11:30 am Laureano Palacio MD [Primary Care Provider] - 03/21/19 10:00 am () Patient Instructions/Handouts: Heart Failure (DC), A-fib (Atrial Fibrillation) (DC) Activity/Diet/Wound Care/Special Instructions: Mary covered by insurance - copay $8.50 Discharge Disposition: HOME SELF-CARE
[2019-03-15] MEDS ORDERED: FUROSEMIDE 40 MG TAB PO SCH (16:00)
[2019-03-15] MEDS ORDERED: AMIODARONE 200 MG TAB PO SCH (21:00)
[2019-03-15] MEDS ORDERED: FAMOTIDINE 20 MG TAB PO SCH (21:00)
== END 2019-03-15 14:28 | disposition home or self-care (01) | DRG 280 ==
LOC: EC 11:47 → 2SICU 15:26 → 3SCARD 03-13 18:20
PROVIDERS: ADMIT Internal Medicine Geriatric Medicine; ATTEND Internal Medicine Geriatric Medicine
PROC: 5A09357 Assistance with Respiratory Ventilation, Less than 24 Consecutive Hours, Continuous Positive Airway Pressure (ICD-10-PCS; 2019-03-11)
PROC: B2111ZZ Fluoroscopy of Multiple Coronary Arteries using Low Osmolar Contrast (ICD-10-PCS; 2019-03-13)
PROC: 4A023N7 Measurement of Cardiac Sampling and Pressure, Left Heart, Percutaneous Approach (ICD-10-PCS; principal; 2019-03-13 07:40)
DX: I50.23 Acute on chronic systolic (congestive) heart failure (principal); I21.4 Non-ST elevation (NSTEMI) myocardial infarction; J96.01 Acute respiratory failure with hypoxia; R57.0 Cardiogenic shock; E87.2 Acidosis; I42.9 Cardiomyopathy, unspecified; J44.1 Chronic obstructive pulmonary disease with (acute) exacerbation; E66.01 Morbid (severe) obesity due to excess calories; F20.9 Schizophrenia, unspecified; F17.200 Nicotine dependence, unspecified, uncomplicated; F31.9 Bipolar disorder, unspecified; G89.29 Other chronic pain; I25.10 Atherosclerotic heart disease of native coronary artery without angina pectoris; I44.0 Atrioventricular block, first degree; I44.7 Left bundle-branch block, unspecified; I48.0 Paroxysmal atrial fibrillation; M54.5 Low back pain; M19.90 Unspecified osteoarthritis, unspecified site; I49.3 Ventricular premature depolarization; I49.1 Atrial premature depolarization; R73.9 Hyperglycemia, unspecified; I34.0 Nonrheumatic mitral (valve) insufficiency; Z79.899 Other long term (current) drug therapy; Z88.1 Allergy status to other antibiotic agents; Z88.5 Allergy status to narcotic agent; Z88.2 Allergy status to sulfonamides
CPT/HCPCS: 36415; 36600; 71045; 71046; 71275; 80048; 80053; 80061; 82272; 82550; 82805; 83735; 83880; 84100; 84484; 85025; 85379; 85610; 85730; 93005; 93306; 93458; 94640; 94660; 94760; 96365; 96366; 96374; 96375; 96376; 99291

== ENCOUNTER 2020-04-25 09:00 | Emergency (ER) | payer MEDICARE ==
[2020-04-25 09:09] VITALS: RESP 18
[2020-04-25 09:29] VITALS: TEMP 97.6
--- NOTE | 2020-04-25 09:30 | ED ---
Extremity Problem HPI - General Chief complaint: Extremity Problem,Nontraumatic Stated complaint: L leg swelling/pain Time Seen by Provider: 04/25/20 09:09 Source: patient, RN notes reviewed, old records reviewed Mode of arrival: ambulatory Limitations: no limitations - History of Present Illness Initial comments: Patient is a 54-year-old male presents emergency pharmacy today with left lower extremity swelling, erythema and some pain worsening over the past 4 days. He states that he has a history of phlebitis and will have flareups from time to ti me if he is on his feet more often. Patient states that he also has some swelling over his second toe that has been there for 4 years. He states he followed up with a furniture inspector one time but has not seen anybody since then. He states he typically gets started on Keflex antibiotic and a small help clear up infection his leg and is manage this typically outpatient with his primary care physician. Due to the weekend and call the crisis he has not been able to follow up with his primary care physician right away when this started to occur. He denies any fever or chills. He denies any pain behind the knee. He denies any other complaints. - Related Data Home Medications Medication Instructions Recorded Confirmed Divalproex [Depakote] 1,500 mg PO HS 03/11/19 03/11/19 Ibuprofen [Motrin Ib] 800 mg PO Q6H PRN 03/11/19 03/11/19 Omeprazole 20 mg PO DAILY PRN 03/11/19 03/11/19 risperiDONE [RisperDAL] 4 mg PO HS 03/11/19 03/11/19 Previous Rx's Medication Instructions Recorded Albuterol Inhaler (Mhu) [Ventolin 2 puff INHALATION RT-Q6H PRN #1 03/15/19 Hfa Inhaler] inhaler Amiodarone [Cordarone] 200 mg PO BID #60 tab 03/15/19 Apixaban [Eliquis] 5 mg PO BID #60 tab 03/15/19 Aspirin 81 mg PO DAILY chew 03/15/19 Atorvastatin [Lipitor] 40 mg PO DAILY #30 tab 03/15/19 Furosemide [Lasix] 40 mg PO BID@0900,1600 #60 tab 03/15/19 Isosorbide Mononitrate ER [Imdur] 30 mg PO DAILY #30 tab.er.24h 03/15/19 Lisinopril [Zestril] 2.5 mg PO DAILY #30 tab 03/15/19 Metoprolol Succinate (ER) [Toprol 25 mg PO DAILY #30 tab.er.24h 03/15/19 XL] hydrALAZINE HCL [Apresoline] 25 mg PO BID #60 tab 03/15/19 Cephalexin [Keflex] 500 mg PO Q6HR 7 Days #28 cap 04/25/20 Allergies Allergy/AdvReac Type Severity Reaction Status Date / Time sulfamethoxazole Allergy Unknown Verified 04/25/20 09:08 [From Bactrim] trimethoprim [From Bactrim] Allergy Unknown Verified 04/25/20 09:08 codeine AdvReac Nausea Verified 04/25/20 09:08 Review of Systems ROS Statement: Those systems with pertinent positive or pertinent negative responses have been documented in the HPI. ROS Other: All systems not noted in ROS Statement are negative. Past Medical History Past Medical History: COPD, Osteoarthritis (OA) Additional Past Medical History / Comment(s): chronic back pain History of Any Multi-Drug Resistant Organisms: None Reported Past Surgical History: Orthopedic Surgery Additional Past Surgical History / Comment(s): wrist Past Anesthesia/Blood Transfusion Reactions: No Reported Reaction Past Psychological History: Bipolar, Schizophrenia Smoking Status: Current every day smoker Past Alcohol Use History: None Reported Past Drug Use History: None Reported General Exam - General Exam Comments Initial Comments: 54-year-old male. Alert and oriented 3. Limitations: no limitations General appearance: alert, in no apparent distress Head exam: Present: atraumatic, normocephalic, normal inspection Eye exam: Present: normal appearance, PERRL, EOMI. Absent: scleral icterus, conjunctival injection, periorbital swelling ENT exam: Present: normal exam, mucous membranes moist Neck exam: Present: normal inspection. Absent: tenderness, meningismus, lymphadenopathy Respiratory exam: Present: normal lung sounds bilaterally Cardiovascular Exam: Present: regular rate, normal rhythm, normal heart sounds. Absent: systolic murmur, diastolic murmur, rubs, gallop, clicks GI/Abdominal exam: Present: soft, normal bowel sounds. Absent: distended, te nderness, guarding, rebound, rigid Extremities exam: Present: normal inspection, full ROM, normal capillary refill, other (Patient has erythema over the left ankle and swelling to the mid calf.). Absent: tenderness, pedal edema, joint swelling, calf tenderness Back exam: Present: normal inspection Neurological exam: Present: alert, oriented X3, CN II-XII intact Psychiatric exam: Present: normal affect, normal mood Skin exam: Present: warm, dry, intact, normal color. Absent: rash Course Vital Signs 04/25/20 04/25/20 09:04 09:27 Temperature 97.8 F 97.6 F Pulse Rate 77 72 Respiratory 18 18 Rate Blood Pressure 134/80 132/87 O2 Sat by Pulse 97 93 L Oximetry Medical Decision Making - Medical Decision Making 54-year-old male presents emergency department today for evaluation for concern for left leg swelling and erythema. He states that his "phlebitis and cellulitis has flared up". Patient had symptoms for the past 4 days. At this time patient's Doppler ultrasound is negative for DVT. Patient has no fever at this time. I discussed putting the Patient on Keflex and advise close follow- up. Discussed return parameters. - Radiology Data Radiology results: report reviewed Doppler ultrasound is negative for DVT. Disposition Clinical Impression: Cellulitis Disposition: HOME SELF-CARE Condition: Good Instructions (If sedation given, give patient instructions): Cellulitis (ED) Additional Instructions: Please use medication as discussed. Please follow up with family doctor if symptoms have not improved over the next two days. Please return to the emerg ency room if your symptoms increase or worsen or for any other concerns. Prescriptions: Cephalexin [Keflex] 500 mg PO Q6HR 7 Days #28 cap Is patient prescribed a controlled substance at d/c from ED?: No Referrals: Laureano Palacio MD [Primary Care Provider] - 1-2 days Time of Disposition: 10:24
--- NOTE | 2020-04-25 10:17 | US ---
EXAMINATION TYPE: US venous doppler duplex LE LT DATE OF EXAM: 04/25/2020 9:25 AM COMPARISON: NONE CLINICAL HISTORY: pain. Edema SIDE PERFORMED: Left TECHNIQUE: The lower extremity deep venous system is examined utilizing real time linear array sonog mary with graded compression, doppler sonography and color-flow sonography. VESSELS IMAGED: External Iliac Vein (EIV) Common Femoral Vein Deep Femoral Vein Greater Saphenous Vein * Femoral Vein Popliteal Vein Small Saphenous Vein * Proximal Calf Veins (* superficial vessels) Left Leg: Negative for DVT No popliteal fossa lesion is seen. IMPRESSION: THIS EXAMINATION IS NEGATIVE FOR DVT WITHIN THE LEFT LEG.
[2020-04-25] MEDS ORDERED: CEPHALEXIN 500MG STARTER PACK 4 CAP BTL PO STA (10:24)
[2020-04-25 10:35] VITALS: BP 144/79; PULSE 66
== END 2020-04-25 10:42 | disposition home or self-care (01) ==
LOC: EC 09:00
DX: L03.116 Cellulitis of left lower limb (principal); F31.9 Bipolar disorder, unspecified; F20.9 Schizophrenia, unspecified; F17.200 Nicotine dependence, unspecified, uncomplicated; Z98.890 Other specified postprocedural states; Z79.899 Other long term (current) drug therapy; Z88.1 Allergy status to other antibiotic agents; Z88.2 Allergy status to sulfonamides; Z88.5 Allergy status to narcotic agent
CPT/HCPCS: 99284

== ENCOUNTER 2020-08-12 08:03 | Emergency (ER) | payer MEDICARE ==
[2020-08-12 08:08] VITALS: TEMP 97.9
[2020-08-12] MEDS ORDERED: methylPREDNISolone SOD SUCCI 125 MG/2 ML VIAL IV STA (08:17)
[2020-08-12] MEDS ORDERED: IPRATROPIUM-ALBUTEROL 3 ML NEB INHALATION STA (08:17)
[2020-08-12] MEDS ORDERED: ASPIRIN 81 MG PO STA (08:17)
[2020-08-12] MEDS ORDERED: SODIUM CHLORIDE 0.9% 1,000 ML IV STA ×2 (08:17)
--- NOTE | 2020-08-12 08:20 | ED ---
Chest Pain HPI - General Chief Complaint: Chest Pain Stated Complaint: Chest pain Time Seen by Provider: 08/12/20 08:11 Source: patient, RN notes reviewed, old records reviewed Mode of arrival: wheelchair Limitations: no limitations - History of Present Illness Initial Comments: This patient's a 35-year-old male with a history of COPD and CAD. He presents emergency department today with onset of chest pain and left-sided chest worse with taking a deep breath and coughing for the past day. Patient reports it seems to worse last night. He does report a mild productive cough. Denies hemoptysis. He states that he had a previous HI year and half ago. Patient reports that he has had no nausea or vomiting. Patient relates that he has had no significant leg swelling. - Related Data Home Medications Medication Instructions Recorded Confirmed Divalproex [Depakote] 1,500 mg PO HS 03/11/19 03/11/19 Ibuprofen [Motrin Ib] 800 mg PO Q6H PRN 03/11/19 03/11/19 Omeprazole 20 mg PO DAILY PRN 03/11/19 03/11/19 risperiDONE [RisperDAL] 4 mg PO HS 03/11/19 03/11/19 Previous Rx's Medication Instructions Recorded Albuterol Inhaler (Mhu) [Ventolin 2 puff INHALATION RT-Q6H PRN #1 03/15/19 Hfa Inhaler] inhaler Amiodarone [Cordarone] 200 mg PO BID #60 tab 03/15/19 Apixaban [Eliquis] 5 mg PO BID #60 tab 03/15/19 Aspirin 81 mg PO DAILY chew 03/15/19 Atorvastatin [Lipitor] 40 mg PO DAILY #30 tab 03/15/19 Furosemide [Lasix] 40 mg PO BID@0900,1600 #60 tab 03/15/19 Isosorbide Mononitrate ER [Imdur] 30 mg PO DAILY #30 tab.er.24h 03/15/19 Metoprolol Succinate (ER) [Toprol 25 mg PO DAILY #30 tab.er.24h 03/15/19 XL] hydrALAZINE HCL [Apresoline] 25 mg PO BID #60 tab 03/15/19 lisinopriL [Zestril] 2.5 mg PO DAILY #30 tab 03/15/19 Cephalexin [Keflex] 500 mg PO Q6H #40 cap 04/25/20 Cephalexin [Keflex] 500 mg PO Q6HR 7 Days #28 cap 04/25/20 Azithromycin [Zithromax Z-pack] 250 mg PO DIRECTED #6 tab 08/12/20 predniSONE 50 mg PO DAILY #5 tab 08/12/20 Allergies Allergy/AdvReac Type Severity Reaction Status Date / Time sulfamethoxazole Allergy Unknown Verified 04/25/20 09:08 [From Bactrim] trimethoprim [From Bactrim] Allergy Unknown Verified 08/12/20 08:05 codeine AdvReac Nausea Verified 08/12/20 08:05 Review of Systems ROS Statement: Those systems with pertinent positive or pertinent negative responses have been documented in the HPI. ROS Other: All systems not noted in ROS Statement are negative. EKG Findings - EKG Comments: EKG Findings:: EKG performed at 8:15 shows sinus rhythm with first-degree AV block. Record axis. Low voltage QRS. Borderline EKG. Sugar rate 73 bpm. Pulse 220 ms. QRS ration as well as 6 ms. QT QTc is 412/453 ms. Past Medical History Past Medical History: COPD, Osteoarthritis (OA) Additional Past Medical History / Comment(s): chronic back pain History of Any Multi-Drug Resistant Organisms: None Reported Past Surgical History: Orthopedic Surgery Additional Past Surgical History / Comment(s): wrist Past Anesthesia/Blood Transfusion Reactions: No Reported Reaction Past Psychological History: Bipolar, Schizophrenia Smoking Status: Current every day smoker Past Alcohol Use History: None Reported Past Drug Use History: None Reported General Exam - General Exam Comments Initial Comments: 35-year-old male. Patient's alert and oriented 3. Limitations: no limitations General appearance: alert, in no apparent distress Head exam: Present: atraumatic, normocephalic, normal inspection Eye exam: Present: normal appearance, PERRL, EOMI. Absent: scleral icterus, conjunctival injection, periorbital swelling ENT exam: Present: normal exam, normal oropharynx, mucous membranes moist Neck exam: Present: normal inspection. Absent: tenderness, meningismus, lymphadenopathy Respiratory exam: Present: wheezes (Diffuse wheezing). Absent: normal lung sounds bilaterally, respiratory distress, rales, rhonchi, stridor Cardiovascular Exam: Present: regular rate, normal rhythm, normal heart sounds. Absent: systolic murmur, diastolic murmur, rubs, gallop, clicks GI/Abdominal exam: Present: soft, normal bowel sounds. Absent: distended, tenderness, guarding, rebound, rigid Extremities exam: Present: normal inspection, full ROM, normal capillary refill. Absent: tenderness, pedal edema, joint swelling, calf tenderness Back exam: Present: normal inspection Neurological exam: Present: alert, oriented X3, CN II-XII intact Psychiatric exam: Present: normal affect Course Vital Signs 08/12/20 08/12/20 08/12/20 08:06 08:30 08:44 Temperature 97.9 F Pulse Rate 79 72 63 Respiratory 16 Rate Blood Pressure 124/73 O2 Sat by Pulse 95 Oximetry 08/12/20 08:53 Temperature Pulse Rate 63 Respiratory 18 Rate Blood Pressure 128/76 O2 Sat by Pulse 94 L Oximetry Chest Pain MDM - MDM 55-year-old male history of COPD and CAD presents emergency department today with shortness of breath cough and would of right-sided chest pain. Patient did have diffuse wheezing. Oxygen saturation 94 and 95%. He is given DuoNeb treatment IV Solu-Medrol. Initial EKG was reviewed no ST changes. Troponin is negative. Patient did have a positive d-dimer and computed tomography scan was completed and shows no evidence of PE. There is one small lymph node 1.1 cm. Patient is mainly concerned about tumors in his lungs. He does have extensive smoking history. I discussed with his risk factors of CAD smoking history and description of chest pain would like to make the Patient for observation. Patient is refusing to stating that his insurance will not cover this. Patient also is dealing with COPD exacerbation with wheezing and shortness of breath. We'll treat the Patient with prednisone and continue his inhalers. Chest x-ray showed no pneumonia. I advised Patient to follow-up with PCP. Discussed return parameters. Patient understands the risk of bleeding AGAINST MEDICAL ADVICE and concern for chest pain and COPD. He is of sound mind and agrees to return if there is any worsening symptoms. Chest x-ray is negative for any acute cardiopulmonary process. CT chest angio shows No PE. Some limitation on this portion of evaluation. 1.1 cm pretracheal lymph node. Disposition Clinical Impression: Chest pain, COPD (chronic obstructive pulmonary disease) Disposition: Left Against Medical Advice Condition: Good Instructions (If sedation given, give patient instructions): Chest Pain (ED) Additional Instructions: Please use medication as discussed. Please follow up with family doctor if symptoms have not improved over the next two days. Please return to the emergency room if your symptoms increase or worsen or for any other concerns. Prescriptions: predniSONE 50 mg PO DAILY #5 tab Azithromycin [Zithromax Z-pack] 250 mg PO DIRECTED #6 tab Is patient prescribed a controlled substance at d/c from ED?: No Referrals: Laureano Palacio MD [Primary Care Provider] - 1-2 days Time of Disposition: 10:30
[2020-08-12 08:34] LABS: Basophils % (A) 1 %; Eosinophils # (A) 0.3 k/uL (0-0.7); Eosinophils % (A) 5 %; HCT 41.8 % (39.0-53.0); HGB 13.4 gm/dL (13.0-17.5); Lymphocytes # (A) 2.3 k/uL (1.0-4.8); Lymphocytes % (A) 31 %; MCH 30.4 pg (25.0-35.0); MCV 94.9 fL (80.0-100.0); Mean Platelet Volume 8.9; Monocytes # (A) 0.6 k/uL (0-1.0); Monocytes % (A) 9 %; Neutrophils # (A) 3.9 k/uL (1.3-7.7); Neutrophils % (A) 54 %; Platelet Count 209 k/uL (150-450); RBC 4.41 m/uL (4.30-5.90); RDW 12.4 % (11.5-15.5); WBC 7.3 k/uL (3.8-10.6)
--- NOTE | 2020-08-12 08:40 | XR ---
EXAMINATION TYPE: XR chest 2V DATE OF EXAM: 08/12/2020 COMPARISON: 03/12/2019 INDICATION: Chest pain TECHNIQUE: Frontal and lateral views of the chest are obtained. FINDINGS: The heart size is normal. The pulmonary vasculature is normal. The lungs are clear. IMPRESSION: 1. No acute pulmonary process.
[2020-08-12 08:45] VITALS: PULSE 63
[2020-08-12 08:49] LABS: ALT 15 U/L (4-49); AST 23 U/L (17-59); African American GFR (CKD) >90 (>60 ml/min/1.73 sqM); Albumin 3.8 g/dL (3.5-5.0); Alkaline Phosphatase 76 U/L (38-126); Anion Gap 5 mmol/L; Blood Urea Nitrogen 9 mg/dL (9-20); Calcium 8.8 mg/dL (8.4-10.2); Carbon Dioxide 26 mmol/L (22-30); Chloride 103 mmol/L (98-107); Glucose 129 mg/dL (74-99); Magnesium 1.7 mg/dL (1.6-2.3); Non-African American GFR(CKD) >90 (>60 ml/min/1.73 sqM); Potassium 4.4 mmol/L (3.5-5.1); Sodium 134 mmol/L (137-145); Total Bilirubin 0.3 mg/dL (0.2-1.3); Total Protein 6.5 g/dL (6.3-8.2)
[2020-08-12 08:53] LABS: INR 0.9 (<1.2); Partial Thromboplastin Time 24.8 sec (22.0-30.0); Prothrombin Time 9.6 sec (9.0-12.0)
[2020-08-12 08:54] VITALS: BP 128/76; RESP 18
[2020-08-12 08:55] LABS: D-Dimer 0.84 mg/L FEU (<0.60)
[2020-08-12] MEDS ORDERED: MORPHINE SULFATE 4 MG/ML SYRINGE IVP STA (09:18)
--- NOTE | 2020-08-12 10:11 | CT ---
CT CHEST FOR PULMONARY EMBOLISM. EXAMINATION TYPE: CT chest angio for PE DATE OF EXAM: 08/12/2020 INDICATION: Positive D-dimer. CT DLP: 691.8 mGycm, Automated exposure control for dose reduction was used. CONTRAST: Patient injected with 100 mL of Isovue 370. COMPARISON: None TECHNIQUE: CT of the chest is performed on a spiral scan at 2 mm thick sections. Study is performed with intravenous contrast timed for evaluation for pulmonary embolism. This will limit additional po rtions of the evaluation. 3-D MIP images reconstructed by the technologist are reviewed on the compu ter in the coronal and sagittal planes. Contrast timing is suboptimal. FINDINGS: No persistent filling defects are evident to suggest an acute pulmonary embolism. Smaller pulmonary e mboli may be difficult to visualize due to contrast timing. Shotty lymphadenopathy is within the mediastinum. There may be a somewhat prominent pretracheal lymph node measuring 1.1 cm. The ascending aorta diameter at the level of the main pulmonary artery is 3. 4 cm. The main pulmonary artery diameter at the bifurcation is 2.7 cm. Lung windows are clear. Scattered small blebs are at the lung apices. Limited CT section through the upper abdomen are unremarkable. IMPRESSIONS: 1. No acute pulmonary embolism. There is some limitation on this portion of the evaluation. 2. 1.1 cm pretracheal lymph node.
== END 2020-08-12 10:45 | disposition left against medical advice (07) ==
LOC: EC 08:03
DX: J44.1 Chronic obstructive pulmonary disease with (acute) exacerbation (principal); R07.9 Chest pain, unspecified; F31.9 Bipolar disorder, unspecified; M19.90 Unspecified osteoarthritis, unspecified site; G89.29 Other chronic pain; M54.9 Dorsalgia, unspecified; F20.9 Schizophrenia, unspecified; R79.89 Other specified abnormal findings of blood chemistry; I25.2 Old myocardial infarction; F17.200 Nicotine dependence, unspecified, uncomplicated; Z79.899 Other long term (current) drug therapy; Z88.1 Allergy status to other antibiotic agents; Z88.2 Allergy status to sulfonamides; Z88.5 Allergy status to narcotic agent; Z53.29 Procedure and treatment not carried out because of patient's decision for other reasons
CPT/HCPCS: 36415; 94640; 93005; 85379; 83880; 80053; 83735; 84484; 85025; 85610; 85730; 71046; 71275; 99285; 96374; 96361 ×2; J2930; Q9967

== ENCOUNTER 2021-06-25 21:20 | Emergency (ER) | payer MEDICARE ==
[2021-06-25 21:39] VITALS: BP 121/58; PULSE 70; RESP 19; TEMP 98.2
[2021-06-25] MEDS: PROPARACAINE 0.5% OPHTH DROPS 15 ML BTL RIGHT EYE STA (21:49)
[2021-06-25] MEDS: FLUORESCEIN STRIPS 1 MG STRIP RIGHT EYE ONE (21:49)
--- NOTE | 2021-06-25 22:04 | ED ---
General Adult HPI - General Chief complaint: Eye Problems Stated complaint: r eye infection Time Seen by Provider: 06/25/21 21:43 Source: patient Mode of arrival: ambulatory - History of Present Illness Initial comments: 55-year-old male patient presents to the emergency department today for evaluation of right eye redness and discomfort. Patient states started this morning with some crusting when he woke up and throughout the day became more and more red. States he has some tenderness to the skin on his eyelid and just to the right of the eye. Does report excessive clear tearing. Denies fever or chills. Denies blurred or double vision. Denies any headache. Denies any known injury or foreign body. Denies history of similar symptoms. States his been a long time since he had an eye exam. - Related Data Home Medications Medication Instructions Recorded Confirmed Divalproex [Depakote] 1,500 mg PO HS 03/11/19 03/11/19 Ibuprofen [Motrin Ib] 800 mg PO Q6H PRN 03/11/19 03/11/19 Omeprazole 20 mg PO DAILY PRN 03/11/19 03/11/19 risperiDONE [RisperDAL] 4 mg PO HS 03/11/19 03/11/19 Previous Rx's Medication Instructions Recorded Albuterol Inhaler (Mhu) [Ventolin 2 puff INHALATION RT-Q6H PRN #1 03/15/19 Hfa Inhaler] inhaler Amiodarone [Cordarone] 200 mg PO BID #60 tab 03/15/19 Apixaban [Eliquis] 5 mg PO BID #60 tab 03/15/19 Aspirin 81 mg PO DAILY chew 03/15/19 Atorvastatin [Lipitor] 40 mg PO DAILY #30 tab 03/15/19 Furosemide [Lasix] 40 mg PO BID@0900,1600 #60 tab 03/15/19 Isosorbide Mononitrate ER [Imdur] 30 mg PO DAILY #30 tab.er.24h 03/15/19 Metoprolol Succinate (ER) [Toprol 25 mg PO DAILY #30 tab.er.24h 03/15/19 XL] hydrALAZINE HCL [Apresoline] 25 mg PO BID #60 tab 03/15/19 lisinopriL [Zestril] 2.5 mg PO DAILY #30 tab 03/15/19 Cephalexin [Keflex] 500 mg PO Q6H #40 cap 04/25/20 Cephalexin [Keflex] 500 mg PO Q6HR 7 Days #28 cap 04/25/20 Azithromycin [Zithromax Z-pack (6 250 mg PO DIRECTED #6 tab 08/12/20 tabs)] predniSONE 50 mg PO DAILY #5 tab 08/12/20 Allergies Allergy/AdvReac Type Severity Reaction Status Date / Time sulfamethoxazole Allergy Unknown Verified 06/25/21 21:39 [From Bactrim] trimethoprim [From Bactrim] Allergy Unknown Verified 06/25/21 21:39 codeine AdvReac Nausea Verified 06/25/21 21:39 Review of Systems ROS Statement: Those systems with pertinent positive or pertinent negative responses have been documented in the HPI. ROS Other: All systems not noted in ROS Statement are negative. Past Medical History Past Medical History: COPD, Osteoarthritis (OA) Additional Past Medical History / Comment(s): chronic back pain History of Any Multi-Drug Resistant Organisms: None Reported Past Surgical History: Orthopedic Surgery Additional Past Surgical History / Comment(s): wrist Past Anesthesia/Blood Transfusion Reactions: No Reported Reaction Past Psychological History: Bipolar, Schizophrenia Smoking Status: Current every day smoker Past Alcohol Use History: None Reported Past Drug Use History: None Reported General Exam General appearance: alert, in no apparent distress, other (Physical well- developed, well-nourished adult male patient in no acute distress. Vital signs upon presentation are temperature 98.2F. Pulse 70, respirations 19, blood pressure 121/58, pulse ox 95% on room air.) Eye exam: Present: PERRL, EOMI, conjunctival injection (Right), other (Limbus is clear. Fluorescein stain with Wood's lamp examination was performed and showed no evidence for fluorescein uptake.). Absent: nystagmus, periorbital swelling, periorbital tenderness Expanded Eyelids: Normal Inspection: Bilateral Pupils: Regular, Round: Bilateral Sclera/Conjunctival: Normal Inspection: Left, Injection: Right Anterior chamber: Normal Inspection: Bilateral With correction: No IOP (R) in mmH IOP (L) in mmH IOP measured with: other ENT exam: Present: normal exam, normal oropharynx, mucous membranes moist Respiratory exam: Present: normal lung sounds bilaterally. Absent: respiratory distress, wheezes, rales, rhonchi, stridor Cardiovascular Exam: Present: regular rate, normal rhythm, normal heart sounds. Absent: systolic murmur, diastolic murmur, rubs, gallop, clicks Neurological exam: Present: alert, oriented X3, CN II-XII intact Psychiatric exam: Present: normal affect, normal mood Skin exam: Present: warm, dry, intact, normal color. Absent: rash Course Vital Signs 06/25/21 21:35 Temperature 98.2 F Pulse Rate 70 Respiratory 19 Rate Blood Pressure 121/58 O2 Sat by Pulse 95 Oximetry Medical Decision Making - Medical Decision Making 55-year-old male patient presents to the emergency department today for evaluation of right eye redness, discomfort, tearing. Physical examination did reveal conjunctival injection on the right, mild chemosis over the lower portion of the globe. Fluorescein stain with Wood's lamp examination was performed and showed no evidence for fluorescein uptake. I did perform pressures in both eyes right was 24 mmHg, left is [address] Lewis was in to evaluate the patient as well. We treated with tobramycin solution for conjunctivitis. We decided to follow up with ophthalmology for further evaluation regarding his eye pressure. Return parameters were discussed in detail. He verbalizes understanding and agrees this plan. My attending is Dr. Lewis. Disposition Clinical Impression: Conjunctivitis, right eye Disposition: HOME SELF-CARE Condition: Good Instructions (If sedation given, give patient instructions): Glaucoma (ED), Conjunctivitis (ED) Additional Instructions: Use antibiotic eye drop 2 drops to the right eye four times daily while awake. Follow up with the log grader for further evaluation on Monday, let them know you had high eye pressures in the emergency department. Return to the emergency department for any new, worsening, or concerning symptoms. Is patient prescribed a controlled substance at d/c from ED?: No Referrals: None,Stated [Primary Care Provider] - 1-2 days John Gorman MD [STAFF PHYSICIAN] - 1-2 days Time of Disposition: 22:18
[2021-06-25] MEDS: TOBRAMYCIN 0.3% OPHTH DROPS 5 ML BTL RIGHT EYE STA (22:27)
== END 2021-06-25 22:33 | disposition home or self-care (01) ==
LOC: EC 21:20
DX: H10.9 Unspecified conjunctivitis (principal); J44.9 Chronic obstructive pulmonary disease, unspecified; M19.90 Unspecified osteoarthritis, unspecified site; F31.9 Bipolar disorder, unspecified; F17.200 Nicotine dependence, unspecified, uncomplicated; Z79.51 Long term (current) use of inhaled steroids; Z79.82 Long term (current) use of aspirin
CPT/HCPCS: 99283

== ENCOUNTER → 2022-03-14 | Outpatient (CLI) | payer MEDICARE ==
--- NOTE | 2022-03-14 21:56 | MR ---
MRI CERVICAL SPINE: CLINICAL HISTORY: Headaches and neck pain. Pain radiates into left arm and shoulder. TECHNIQUE: Multiplanar, multisequence imaging of the cervical spine is performed without contrast. COMPARISON: None. FINDINGS: Sagittal images of the cervical spine show the craniocervical junction to appear within nor mal limits. The cervical and upper thoracic spinal cord is normal in caliber and signal. Alignment i s straightened with grade 1 retrolisthesis C6 on C7. The vertebral body heights are normal. Mild to moderate disc space narrowing and spurring C6-C7 level. Moderate-sized spur anterior inferior C5 lev el. The bone marrow signal intensity is overall heterogeneous. Axial images at C2-C3 level appear within normal limits. Axial images at C3-C4 levels from broad-based left paracentral/foraminal disc protrusion effaces the anterolateral thecal sac with uncovertebral facet degenerative changes causing mild right and moderat e to severe left-sided neural foraminal narrowing. Axial images at C4-C5 level show posterior spur disc complex and the vertebral facet degenerative christina nges with some effacement of anterior thecal sac along with mild to moderate left greater than right bilateral neural foraminal narrowing. Axial images at C5-C6 level broad-based posterior spur disc complex effacing the anterior thecal sac and causing moderate to advanced left greater than right bilateral neural foraminal narrowing. Axial images at C6-C7 level show posterior spur disc complex effacing anterior thecal sac and causing moderate to advanced bilateral neural foraminal narrowing. Axial images at C7-T1 level show right paracentral spur disc complex effacing the anterior thecal sac and causing moderate right and mild left-sided neural foraminal narrowing. IMPRESSION: Straightening of cervical spine with multilevel degenerative changes as detailed above.
== END | disposition home or self-care (01) ==
LOC: RADMRIMAIN 16:31
PROVIDERS: ATTEND Psychiatry & Neurology Neurology
DX: M47.812 Spondylosis without myelopathy or radiculopathy, cervical region (principal)
CPT/HCPCS: 72141

== ENCOUNTER 2023-04-10 15:29 | Emergency (ER) | payer MEDICARE ==
[2023-04-10 15:39] VITALS: TEMP 97.6
[2023-04-10] MEDS ORDERED: SODIUM CHLORIDE 0.9% 1,000 ML IV STA (17:03)
[2023-04-10] MEDS ORDERED: ONDANSETRON 4 MG/2 ML VIAL IVP STA (17:03)
[2023-04-10] MEDS ORDERED: PANTOPRAZOLE 40 MG/10 ML VIAL IVP STA (17:03)
[2023-04-10] MEDS ORDERED: KETOROLAC 15 MG/ML 1 ML VIAL IVP STA (17:03)
[2023-04-10] MEDS ORDERED: methylPREDNISolone SOD SUCCI 125 MG/2 ML VIAL IV STA (17:04)
[2023-04-10] MEDS ORDERED: IPRATROPIUM-ALBUTEROL 3 ML NEB INHALATION STA (17:04)
--- NOTE | 2023-04-10 17:38 | ED ---
General Adult HPI - General Chief complaint: Abdominal Pain Stated complaint: ABD PAIN Time Seen by Provider: 04/10/23 16:38 Source: patient, RN notes reviewed, old records reviewed Mode of arrival: ambulatory Limitations: no limitations - History of Present Illness Initial comments: Patient is a 57-year-old male with past medical history remarkable for COPD on chronic oxygen at home as needed, chronic back pain with a pain contract with his physician on [place] as well as a umbilical hernia presents emergency Department as his umbilical hernia is causing him pain. States it has not happened like this before. It does protrude occasionally but usually goes right back in. He has been out for approximately 1 day. States he has not had any bowel movements but also has not tried to have a bowel movement since yesterday. Denies any notable flatus. He states this may or may not be abnormal. Denies any nausea or vomiting. Endorses pain at the site. Denies any chest pain. Does endorse chronic shortness of breath secondary to COPD as well as an increased productive cough. Believes his COPD is flaring up and as he is to quit smoking. Denies any fevers or sick contacts. Is on home albuterol at home. States he is supposed uses oxygen as needed and at night. Has no other acute complaints at this time. Presents over concern for his abdominal discomfort.Describes the pain as sharp, primarily located in the site of the hernia but also is complaining of epigastric abdominal discomfort that seems separate. - Related Data Home Medications Medication Instructions Recorded Confirmed Divalproex [Depakote] 1,500 mg PO HS 03/11/19 03/11/19 Ibuprofen [Motrin Ib] 800 mg PO Q6H PRN 03/11/19 03/11/19 Omeprazole 20 mg PO DAILY PRN 03/11/19 03/11/19 risperiDONE [RisperDAL] 4 mg PO HS 03/11/19 03/11/19 Previous Rx's Medication Instructions Recorded Albuterol Inhaler [Ventolin Hfa 2 puff INHALATION RT-Q6H PRN #1 03/15/19 Inhaler] inhaler Amiodarone [Cordarone] 200 mg PO BID #60 tab 03/15/19 Apixaban [Eliquis] 5 mg PO BID #60 tab 03/15/19 Aspirin 81 mg PO DAILY chew 03/15/19 Atorvastatin [Lipitor] 40 mg PO DAILY #30 tab 03/15/19 Furosemide [Lasix] 40 mg PO BID@0900,1600 #60 tab 03/15/19 Isosorbide Mononitrate ER [Imdur] 30 mg PO DAILY #30 tab.er.24h 03/15/19 Metoprolol Succinate (ER) [Toprol 25 mg PO DAILY #30 tab.er.24h 03/15/19 XL] hydrALAZINE HCL [Apresoline] 25 mg PO BID #60 tab 03/15/19 lisinopriL [Zestril] 2.5 mg PO DAILY #30 tab 03/15/19 Cephalexin [Keflex] 500 mg PO Q6H #40 cap 04/25/20 Cephalexin [Keflex] 500 mg PO Q6HR 7 Days #28 cap 04/25/20 Azithromycin [Zithromax Z-pack (6 250 mg PO DIRECTED #6 tab 08/12/20 tabs)] predniSONE 50 mg PO DAILY #5 tab 08/12/20 Albuterol Inhaler [Ventolin Hfa 1 puff INHALATION TID #8 gm 04/10/23 Inhaler] Doxycycline Hyclate 100 mg PO BID 7 Days #14 capsule 04/10/23 predniSONE [Deltasone] 40 mg PO DAILY 5 Days #10 tab 04/10/23 Allergies Allergy/AdvReac Type Severity Reaction Status Date / Time No Known Allergies Allergy Verified 04/10/23 15:40 Review of Systems ROS Statement: Those systems with pertinent positive or pertinent negative responses have been documented in the HPI. Review of Systems: CONST: Denies fever EYES: Denies blurry vision ENT: Endorses cough C/V: Denies Chest pain RESP: Denies shortness of breath GI: Endorses abdominal pain : Denies dysuria SKIN: Denies rash. MSK: Denies joint pain. NEURO: Denies headache ROS Other: All systems not noted in ROS Statement are negative. Past Medical History Past Medical History: COPD, Osteoarthritis (OA) Additional Past Medical History / Comment(s): chronic back pain History of Any Multi-Drug Resistant Organisms: None Reported Past Surgical History: Orthopedic Surgery Additional Past Surgical History / Comment(s): wrist Past Anesthesia/Blood Transfusion Reactions: No Reported Reaction Past Psychological History: Bipolar, Schizophrenia Smoking Status: Current every day smoker Past Alcohol Use History: None Reported Past Drug Use History: None Reported General Exam - General Exam Comments Initial Comments: General: Appears in mild distress secondary to abdominal discomfort. HEAD: Normal with no signs of head trauma. EYES: PERRLA, EOMI, conjunctiva normal, no discharge. ENT: Hearing grossly intact, normal oropharynx. RESPIRATORY: Bilateral end expiratory wheezing. Mild hypoxia on room air. No increased work of breathing. C/V: Regular rate and rhythm. S1 and S2 auscultated, no edema, peripheral pulses 2+ and intact throughout ABD: Abdomen soft, nondistended. Tender to palpation over a protruding umbil ical hernia that I am able to easily reduce at bedside during evaluation. No skin changes at the site of the hernia. Patient also has some mild periumbilical as well as epigastric and left upper quadrant discomfort. This is on palpation. No guarding. No peritoneal signs. No rebound tenderness. EXT: Normal range of motion, no obvious deformity SKIN: No rashes or lesions observed on exposed skin. NEURO: Alert and oriented 4. Limitations: no limitations Course Vital Signs 04/10/23 04/10/23 04/10/23 15:36 18:37 18:47 Temperature 97.6 F Pulse Rate 72 70 74 Respiratory 20 Rate Blood Pressure 145/93 O2 Sat by Pulse 90 L Oximetry 04/10/23 19:30 Temperature Pulse Rate 89 Respiratory 16 Rate Blood Pressure 99/62 O2 Sat by Pulse 92 L Oximetry Medical Decision Making - Medical Decision Making Was pt. sent in by a medical professional or institution (, PA, ALFALFA DEHYDRATOR OPERATOR, urgent care, hospital, or senior care...) When possible be specific @ -No Did you speak to anyone other than the patient for history (EMS, parent, family, police, friend...)? What history was obtained from this source @ -No Did you review nursing and triage notes (agree or disagree)? Why? @ -I reviewed and agree with nursing and triage notes Were old charts reviewed (outside hosp., previous admission, EMS record, old EKG, old radiological studies, urgent care reports/EKG's, senior care records)? Report findings @ -Old EKGs reviewed from February 2019 which is chronic changes including T-wave inversions and III, aVF. Differential Diagnosis (chest pain, altered mental status, abdominal pain women, abdominal pain men, vaginal bleeding, weakness, fever, dyspnea, syncope, headache, dizziness, GI bleed, back pain, seizure, CVA, palpatations, mental health, musculoskeletal)? @ -Differential Abdominal Pain Men: Appendicitis, cholecystitis, diverticulosis, ischemic bowel, pancreatitis, hepatitis, UTI, gastroenteritis, AAA, incarcerated hernia, bowel obstruction, constipation, inflammatory bowel, hepatitis, peptic ulcer disease, splenic infarction, perforated viscus, testicular torsion, this is not meant to be an all-inclusive list EKG interpreted by me (3pts min.). @ -As above X-rays interpreted by me (1pt min.). @ -Chest x-ray showed no obvious acute cardio pulmonary process. CT interpreted by me (1pt min.). @ -CT abdomen and pelvis reveals a periumbilical hernia. Radiology does report possible mild amount of incarcerated fat. No evidence of bowel. U/S interpreted by me (1pt. min.). @ -None done What testing was considered but not performed or refused? (CT, X-rays, U/S, labs)? Why? @ -None What meds were considered but not given or refused? Why? @ -None Did you discuss the management of the patient with other professionals (professionals i.e. , PA, ALFALFA DEHYDRATOR OPERATOR, lab, RT, psych nurse, social media analyst, donor floor technician, teacher, event security officer, special education case manager)? Give summary @ -No Was smoking cessation discussed for >3mins.? @ -Yes Was critical care preformed (if so, how long)? @ -No Were there social determinants of health that impacted care today? How? (Homelessness, low income, unemployed, alcoholism, drug addiction, transportation, low edu. Level, literacy, decrease access to med. care, group home, rehab)? @ -No Was there de-escalation of care discussed even if they declined (Discuss DNR or withdrawal of care, Hospice)? DNR status @ -No What co-morbidities impacted this encounter? (DM, HTN, Smoking, COPD, CAD, Cancer, CVA, ARF, Chemo, Hep., AIDS, mental health diagnosis, sleep apnea, morbid obesity)? @ -COPD, history of umbilical hernia Was patient admitted / discharged? Hospital course, mention meds given and route, prescriptions, significant lab abnormalities, going to OR and other pertinent info. @ -Based on the patient's presentation and physical exam, presents primarily of abdominal pain but also is apparently having a COPD exacerbation with concern for possible infectious etiology. Patient did have an umbilical hernia that was protruding that I was able to easily reduce. No overlying skin changes to suggest incarceration but we will obtain abdominal labs as he is having abdominal pain elsewhere in his abdomen. We also symptomatically treat his COPD with IV steroids as well as breathing treatments. We will obtain chest x-ray in addition to the above labs. Screening EKG will also be obtained. He will be given IV Protonix, Zofran, 1 L fluid bolus as well as Toradol. Patient was in agreement this plan. Vital signs are within acceptable limits. Patient's EKG showed no signs of acute ischemia. Imaging unremarkable but does note the umbilical hernia. Laboratory studies are remarkable for normal lactic acid. Following breathing treatment as well as other therapies, patient is feeling improved like to go home. Vital signs are within acceptable limits on his baseline 2 L nasal cannula. Patient will be treated for COPD exacerbation with a prescription for prednisone, albuterol, doxycycline I will provide the patient with a prescription for prednisone, doxycycline, albuterol. I instructed the patient to follow up with their PCP in the next 1-3 days . I explained that the patient should return to the emergency department if they experience any worsening symptoms. Strict return precautions were discussed with the patient. The patient expressed understanding of these instructions. I answered all questions that the patient had. The patient was discharged home in good condition with their prescriptions and follow up information. Undiagnosed new problem with uncertain prognosis? @ -No Drug Therapy requiring intensive monitoring for toxicity (Heparin, Nitro, Insulin, Cardizem)? @ -No Were any procedures done? @ -No Diagnosis/symptom? @ -COPD, bronchitis Acute, or Chronic, or Acute on Chronic? @ -Acute on chronic Uncomplicated (without systemic symptoms) or Complicated (systemic symptoms)? @ -Complicated Side effects of treatment? @ -none Exacerbation, Progression, or Severe Exacerbation] @ -Exacerbation Poses a threat to life or bodily function? @ -no Diagnosis/symptom? @ -umbilical hernia Acute, or Chronic, or Acute on Chronic? @ -Acute Uncomplicated (without systemic symptoms) or Complicated (systemic symptoms)? @ -Complicated Side effects of treatment? @ -none Exacerbation, Progression, or Severe Exacerbation] @ -no Poses a threat to life or bodily function? @ -no - Lab Data Result diagrams: 04/10/23 17:34 04/10/23 17:34 Lab Results 04/10/23 04/10/23 04/10/23 Range/Units 17:34 17:34 17:34 WBC 5.1 (3.8-10.6) k/uL RBC 4.86 (4.30-5.90) m/uL Hgb 14.8 (13.0-17.5) gm/dL Hct 45.7 (39.0-53.0) % MCV 94.1 (80.0-100.0) fL MCH 30.5 (25.0-35.0) pg MCHC 32.5 (31.0-37.0) g/dL RDW 13.0 (11.5-15.5) % Plt Count 201 (150-450) k/uL MPV 9.1 Neutrophils % 49 % Lymphocytes % 34 % Monocytes % 11 % Eosinophils % 1 % Basophils % 1 % Neutrophils # 2.5 (1.3-7.7) k/uL Lymphocytes # 1.8 (1.0-4.8) k/uL Monocytes # 0.5 (0-1.0) k/uL Eosinophils # 0.1 (0-0.7) k/uL Basophils # 0.0 (0-0.2) k/uL PT 10.0 (9.0-12.0) sec INR 0.9 (<1.2) APTT 25.0 (22.0-30.0) sec Sodium (137-145) mmol/L Potassium (3.5-5.1) mmol/L Chloride (98-107) mmol/L Carbon Dioxide (22-30) mmol/L Anion Gap mmol/L BUN (9-20) mg/dL Creatinine (0.66-1.25) mg/dL Est GFR (CKD-EPI)AfAm (>60 ml/min/1.73 sqM) Est GFR (CKD-EPI)NonAf (>60 ml/min/1.73 sqM) Glucose (74-99) mg/dL Plasma Lactic Acid Mehran (0.7-2.0) mmol/L Calcium (8.4-10.2) mg/dL Total Bilirubin (0.2-1.3) mg/dL AST (17-59) U/L ALT (4-49) U/L Alkaline Phosphatase (38-126) U/L Total Protein (6.3-8.2) g/dL Albumin (3.5-5.0) g/dL Amylase (30-110) U/L Lipase (23-300) U/L Urine Color Yellow Urine Appearance Clear (Clear) Urine pH 7.5 (5.0-8.0) Ur Specific [place] 1.041 H (1.001-1.035) Urine Protein Negative (Negative) Urine Glucose (UA) Negative (Negative) Urine Ketones Negative (Negative) Urine Blood Trace H (Negative) Urine Nitrite Negative (Negative) Urine Bilirubin Negative (Negative) Urine Urobilinogen <2.0 (<2.0) mg/dL Ur Leukocyte Esterase Negative (Negative) Urine RBC 3 (0-5) /hpf Urine WBC <1 (0-5) /hpf Coronavirus (PCR) (Not Detectd) 04/10/23 04/10/23 04/10/23 Range/Units 17:34 17:34 17:34 WBC (3.8-10.6) k/uL RBC (4.30-5.90) m/uL Hgb (13.0-17.5) gm/dL Hct (39.0-53.0) % MCV (80.0-100.0) fL MCH (25.0-35.0) pg MCHC (31.0-37.0) g/dL RDW (11.5-15.5) % Plt Count (150-450) k/uL MPV Neutrophils % % Lymphocytes % % Monocytes % % Eosinophils % % Basophils % % Neutrophils # (1.3-7.7) k/uL Lymphocytes # (1.0-4.8) k/uL Monocytes # (0-1.0) k/uL Eosinophils # (0-0.7) k/uL Basophils # (0-0.2) k/uL PT (9.0-12.0) sec INR (<1.2) APTT (22.0-30.0) sec Sodium 134 L (137-145) mmol/L Potassium 4.8 (3.5-5.1) mmol/L Chloride 95 L (98-107) mmol/L Carbon Dioxide 30 (22-30) mmol/L Anion Gap 9 mmol/L BUN 10 (9-20) mg/dL Creatinine 0.59 L (0.66-1.25) mg/dL Est GFR (CKD-EPI)AfAm >90 (>60 ml/min/1.73 sqM) Est GFR (CKD-EPI)NonAf >90 (>60 ml/min/1.73 sqM) Glucose 105 H (74-99) mg/dL Plasma Lactic Acid Mehran 1.1 (0.7-2.0) mmol/L Calcium 9.1 (8.4-10.2) mg/dL Total Bilirubin 0.3 (0.2-1.3) mg/dL AST 24 (17-59) U/L ALT 20 (4-49) U/L Alkaline Phosphatase 81 (38-126) U/L Total Protein 7.4 (6.3-8.2) g/dL Albumin 4.2 (3.5-5.0) g/dL Amylase 50 (30-110) U/L Lipase 84 (23-300) U/L Urine Color Urine Appearance (Clear) Urine pH (5.0-8.0) Ur Specific [place] (1.001-1.035) Urine Protein (Negative) Urine Glucose (UA) (Negative) Urine Ketones (Negative) Urine Blood (Negative) Urine Nitrite (Negative) Urine Bilirubin (Negative) Urine Urobilinogen (<2.0) mg/dL Ur Leukocyte Esterase (Negative) Urine RBC (0-5) /hpf Urine WBC (0-5) /hpf Coronavirus (PCR) Not Detected (Not Detectd) - EKG Data -: EKG Interpreted by Me EKG Comments: 12-lead Electrocardiogram Interpretation Note EKG was reviewed and interpreted by myself. 12-lead ECG performed at 1719 is interpreted by me as revealing normal sinus rhythm at a rate of 65 beats per minute. Dixie appears normal. TX interval is prolonged at 230 ms, QRS duration is 121 ms, QTc is 429 ms. Patient has T-wave inversions in leads III and aVF which appear to be chronic seen in EKGs from 2019.. There were no acute ST or T wave abnormalities to suggest myocardial ischemia or injury. R wave progression across the precordium was satisfactory. By my interpretation this EKG is non- diagnostic for acute ischemia. Disposition Clinical Impression: Bronchitis, COPD (chronic obstructive pulmonary disease), Hernia of abdominal wall Disposition: HOME SELF-CARE Condition: Good Prescriptions: predniSONE [Deltasone] 40 mg PO DAILY 5 Days #10 tab Doxycycline Hyclate 100 mg PO BID 7 Days #14 capsule Albuterol Inhaler [Ventolin Hfa Inhaler] 1 puff INHALATION TID #8 gm Is patient prescribed a controlled substance at d/c from ED?: No Referrals: Opal Zuniga [Primary Care Provider] - 1-2 days Time of Disposition: 19:20
[2023-04-10 17:51] LABS: Basophils % (A) 1 %; Eosinophils # (A) 0.1 k/uL (0-0.7); Eosinophils % (A) 1 %; HCT 45.7 % (39.0-53.0); HGB 14.8 gm/dL (13.0-17.5); Lymphocytes # (A) 1.8 k/uL (1.0-4.8); Lymphocytes % (A) 34 %; MCH 30.5 pg (25.0-35.0); MCHC 32.5 g/dL (31.0-37.0); MCV 94.1 fL (80.0-100.0); Mean Platelet Volume 9.1; Monocytes # (A) 0.5 k/uL (0-1.0); Monocytes % (A) 11 %; Neutrophils # (A) 2.5 k/uL (1.3-7.7); Neutrophils % (A) 49 %; Platelet Count 201 k/uL (150-450); RBC 4.86 m/uL (4.30-5.90); WBC 5.1 k/uL (3.8-10.6)
[2023-04-10 18:02] LABS: ALT 20 U/L (4-49); AST 24 U/L (17-59); African American GFR (CKD) >90 (>60 ml/min/1.73 sqM); Albumin 4.2 g/dL (3.5-5.0); Alkaline Phosphatase 81 U/L (38-126); Amylase 50 U/L (30-110); Anion Gap 9 mmol/L; Blood Urea Nitrogen 10 mg/dL (9-20); Calcium 9.1 mg/dL (8.4-10.2); Carbon Dioxide 30 mmol/L (22-30); Chloride 95 mmol/L (98-107); Glucose 105 mg/dL (74-99); Lipase 84 U/L (23-300); Non-African American GFR(CKD) >90 (>60 ml/min/1.73 sqM); Potassium 4.8 mmol/L (3.5-5.1); Sodium 134 mmol/L (137-145); Total Bilirubin 0.3 mg/dL (0.2-1.3); Total Protein 7.4 g/dL (6.3-8.2)
--- NOTE | 2023-04-10 18:10 | XR ---
EXAMINATION TYPE: XR chest 2V DATE OF EXAM: 04/10/2023 COMPARISON: 08/12/2020 INDICATION: Abdomen pain TECHNIQUE: Frontal and lateral views of the chest are obtained. FINDINGS: The heart size is normal. The pulmonary vasculature is normal. The lungs are clear. IMPRESSION: 1. No acute pulmonary process.
[2023-04-10 18:17] LABS: INR 0.9 (<1.2)
--- NOTE | 2023-04-10 18:35 | CT ---
EXAMINATION TYPE: CT abdomen pelvis w con DATE OF EXAM: 04/10/2023 COMPARISON: None INDICATION: Umbilical Hernia pushed back in. DLP: 3237.4 mGycm, Automated exposure control for dose reduction was used. CONTRAST: 100cc mL of Isovue 300. Study performed without Oral Contrast TECHNIQUE: Axial images were obtained from above the diaphragm to the pubic rami in the axial plane a t 5 mm thick sections. Reconstructed images are reviewed on the computer in the coronal plane. FINDINGS: Limited CT sections are obtained the lung bases. The lung bases are clear. There is a small hiatal hernia present. This contains an air-fluid level. CT ABDOMEN: There is a left periumbilical hernia with an opening of 2.2 cm. There is increased densit y within the hernia. Partially incarcerated fat should be considered. No loops of bowel are involved. Liver: Normal Spleen: Normal Pancreas: Normal Adrenal glands: The adrenal glands are normal. Gallbladder: Normal Kidneys: No masses are evident. No hydronephrosis is present. Small cortical renal cysts are better visualized on the delayed images. Delayed images were obtained through the kidneys, which otherwise remain unremarkable. Aorta: Vascular calcification is within the aorta. Inferior vena cava: Normal. CT PELVIS: Loops of bowel within the abdomen and pelvis are normal. The study is performed without oral cont rast limiting bowel evaluation. Appendix: Normal as visualized. Urinary bladder: Normal. Genitourinary structures: Prostate is normal. Osseous structures: No suspicious lytic or sclerotic lesions. IMPRESSIONS: 1. There is a left periumbilical mesenteric fat containing hernia with increased density. Partially incarcerated fat should be considered. No loops of bowel are involved.
[2023-04-10 18:40] LABS: Appearance,Urine Clear (Clear); Bilirubin,Urine Negative (Negative); Blood,Urine Trace (Negative); Color,Urine Yellow; Glucose,Urine (UA) Negative (Negative); Ketones,Urine Negative (Negative); Leukocyte Esterase,Urine Negative (Negative); Nitrite,Urine Negative (Negative); PH, Urine 7.5 (5.0-8.0); Protein,Urine Negative (Negative); RBC,Urine 3 /hpf (0-5); Specific Gravity,Urine 1.041 (1.001-1.035); Urobilinogen,Urine <2.0 mg/dL (<2.0); WBC,Urine <1 /hpf (0-5)
[2023-04-10 19:31] VITALS: BP 99/62; PULSE 89; RESP 16
[2023-04-10] MEDS ORDERED: DOXYCYCLINE 100 MG CAP PO STA (19:33)
== END 2023-04-10 19:37 | disposition home or self-care (01) ==
LOC: EC 15:29
DX: K42.9 Umbilical hernia without obstruction or gangrene (principal); J40 Bronchitis, not specified as acute or chronic; J44.9 Chronic obstructive pulmonary disease, unspecified; M19.90 Unspecified osteoarthritis, unspecified site; F31.9 Bipolar disorder, unspecified; F17.200 Nicotine dependence, unspecified, uncomplicated; Z79.01 Long term (current) use of anticoagulants; Z79.899 Other long term (current) drug therapy; Z20.822 Contact with and (suspected) exposure to COVID-19
CPT/HCPCS: 36415; 94640; 93005; 80053; 82150; 83605; 83690; 85025; 85610; 85730; 81001; 87635; 71046; 74177; 99284; 96374; 96375 ×3; 96361 ×2; J2930; J2405; J1885; C9113; Q9967

== ENCOUNTER 2023-07-08 16:58 | Emergency (ER) | payer MEDICARE ==
[2023-07-08 17:15] VITALS: TEMP 97.2
--- NOTE | 2023-07-08 17:55 | ED ---
Abdominal Pain HPI - General Chief Complaint: Abdominal Pain Stated Complaint: Abd Pain, history of hernia Time Seen by Provider: 07/08/23 17:16 Source: patient Mode of arrival: ambulatory Limitations: no limitations - History of Present Illness Initial Comments: Old male presents to ED with a chief complaint of abdominal pain. Patient has a history of left umbilical hernia. States that initially has been able to reduce this himself without any difficulty. States over the past few days has noticed that the hernia has been popping out more frequently and states over the past 2 days increased pain as has been unable to reduce his hernia prompting him to present to the ED for further evaluation. No fever. Denies chest pain or shortness breath. No other complaints. - Related Data Home Medications Medication Instructions Recorded Confirmed Divalproex [Depakote] 1,500 mg PO HS 03/11/19 03/11/19 Ibuprofen [Motrin Ib] 800 mg PO Q6H PRN 03/11/19 03/11/19 Omeprazole 20 mg PO DAILY PRN 03/11/19 03/11/19 risperiDONE [RisperDAL] 4 mg PO HS 03/11/19 03/11/19 Previous Rx's Medication Instructions Recorded Albuterol Inhaler [Ventolin Hfa 2 puff INHALATION RT-Q6H PRN #1 03/15/19 Inhaler] inhaler Amiodarone [Cordarone] 200 mg PO BID #60 tab 03/15/19 Apixaban [Eliquis] 5 mg PO BID #60 tab 03/15/19 Aspirin 81 mg PO DAILY chew 03/15/19 Atorvastatin [Lipitor] 40 mg PO DAILY #30 tab 03/15/19 Furosemide [Lasix] 40 mg PO BID@0900,1600 #60 tab 03/15/19 Isosorbide Mononitrate ER [Imdur] 30 mg PO DAILY #30 tab.er.24h 03/15/19 Metoprolol Succinate (ER) [Toprol 25 mg PO DAILY #30 tab.er.24h 03/15/19 XL] hydrALAZINE HCL [Apresoline] 25 mg PO BID #60 tab 03/15/19 lisinopriL [Zestril] 2.5 mg PO DAILY #30 tab 03/15/19 Cephalexin [Keflex] 500 mg PO Q6H #40 cap 04/25/20 Cephalexin [Keflex] 500 mg PO Q6HR 7 Days #28 cap 04/25/20 Azithromycin [Zithromax Z-pack (6 250 mg PO DIRECTED #6 tab 08/12/20 tabs)] predniSONE 50 mg PO DAILY #5 tab 08/12/20 Albuterol Inhaler [Ventolin Hfa 1 puff INHALATION TID #8 gm 04/10/23 Inhaler] Doxycycline Hyclate 100 mg PO BID 7 Days #14 capsule 04/10/23 predniSONE [Deltasone] 40 mg PO DAILY 5 Days #10 tab 04/10/23 Allergies Allergy/AdvReac Type Severity Reaction Status Date / Time No Known Allergies Allergy Verified 04/10/23 15:40 Review of Systems ROS Statement: Those systems with pertinent positive or pertinent negative responses have been documented in the HPI. ROS Other: All systems not noted in ROS Statement are negative. Past Medical History Past Medical History: COPD, Osteoarthritis (OA) Additional Past Medical History / Comment(s): chronic back pain History of Any Multi-Drug Resistant Organisms: None Reported Past Surgical History: Orthopedic Surgery Additional Past Surgical History / Comment(s): wrist Past Anesthesia/Blood Transfusion Reactions: No Reported Reaction Past Psychological History: Bipolar, Schizophrenia Smoking Status: Current every day smoker Past Alcohol Use History: None Reported Past Drug Use History: None Reported General Exam Limitations: no limitations General appearance: alert, in no apparent distress Neck exam: Present: normal inspection Respiratory exam: Present: wheezes Cardiovascular Exam: Present: regular rate, normal rhythm GI/Abdominal exam: Present: soft, hernia (Left periumbilical hernia with some noted erythema.) Neurological exam: Present: alert, oriented X3 Skin exam: Present: warm, dry Course Vital Signs 07/08/23 07/08/23 17:11 18:38 Temperature 97.2 F L Pulse Rate 73 69 Respiratory 18 22 Rate Blood Pressure 108/68 143/87 O2 Sat by Pulse 94 L 94 L Oximetry Medical Decision Making - Medical Decision Making Was pt. sent in by a medical professional or institution (CELI Ybarra, HOOK P[employer]ER, urgent care, hospital, or residential...) When possible be specific @ -No Did you speak to anyone other than the patient for history (EMS, parent, family, police, friend...)? What history was obtained from this source @ -No Did you review nursing and triage notes (agree or disagree)? Why? @ -I reviewed and agree with nursing and triage notes Were old charts reviewed (outside hosp., previous admission, EMS record, old EKG, old radiological studies, urgent care reports/EKG's, residential records)? Report findings @ -No old charts were reviewed Differential Diagnosis (chest pain, altered mental status, abdominal pain women, abdominal pain men, vaginal bleeding, weakness, fever, dyspnea, syncope, headache, dizziness, GI bleed, back pain, seizure, CVA, palpatations, mental health, musculoskeletal)? @ -Differential Abdominal Pain Men: Appendicitis, cholecystitis, diverticulosis, ischemic bowel, pancreatitis, hepatitis, UTI, gastroenteritis, AAA, incarcerated hernia, bowel obstruction, constipation, inflammatory bowel, hepatitis, peptic ulcer disease, splenic infarction, perforated viscus, testicular torsion, this is not meant to be an all-inclusive list EKG interpreted by me (3pts min.). @ -As above X-rays interpreted by me (1pt min.). @ -None done CT interpreted by me (1pt min.). @ -CT abdomen and pelvis showed increasing umbilical hernia with fat stranding concerning for omental infarct however no evidence of strangulation at this time. U/S interpreted by me (1pt. min.). @ -None done What testing was considered but not performed or refused? (CT, X-rays, U/S, lab s)? Why? @ -None What meds were considered but not given or refused? Why? @ -None Did you discuss the management of the patient with other professionals (professionals i.e. , PA, HOOK PULLER, lab, RT, psych nurse, social work instructor, patternmaker plaster and plastic, teacher, air defense artillery officer, caser)? Give summary @ -Discuss case with Dr. Goldberg of surgery who advised no surgical intervention at this time. Advised patient may follow-up with him outpatient. Was smoking cessation discussed for >3mins.? @ -No Was critical care preformed (if so, how long)? @ -No Were there social determinants of health that impacted care today? How? (Homelessness, low income, unemployed, alcoholism, drug addiction, transportation, low edu. Level, literacy, decrease access to med. care, fpc, rehab)? @ -No Was there de-escalation of care discussed even if they declined (Discuss DNR or withdrawal of care, Hospice)? DNR status @ -No What co-morbidities impacted this encounter? (DM, HTN, Smoking, COPD, CAD, Cancer, CVA, ARF, Chemo, Hep., AIDS, mental health diagnosis, sleep apnea, morbid obesity)? @ -None Was patient admitted / discharged? Hospital course, mention meds given and route, prescriptions, significant lab abnormalities, going to OR and other pertinent info. @ -Discharge. Laboratory studies including lactic acid unremarkable. CT shows increasing umbilical hernia with fat stranding concerning for omental infarct however no evidence of strangulation at this time. Patient was able to reduce the hernia himself and reports pain is well improved. Patient states she would like to go home. Undiagnosed new problem with uncertain prognosis? @ -No Drug Therapy requiring intensive monitoring for toxicity (Heparin, Nitro, Insulin, Cardizem)? @ -No Were any procedures done? @ -No Diagnosis/symptom? @ -Umbilical hernia Acute, or Chronic, or Acute on Chronic? @ -Acute Uncomplicated (without systemic symptoms) or Complicated (systemic symptoms)? @ -Uncomplicated Side effects of treatment? @ -No Exacerbation, Progression, or Severe Exacerbation? @ -No Poses a threat to life or bodily function? How? (Chest pain, USA, [place], pneumonia, PE, COPD, DKA, ARF, appy, cholecystitis, CVA, Diverticulitis, Homicidal, Suicidal, threat to staff... and all critical care pts) @ -No - Lab Data Result diagrams: 07/08/23 17:39 07/08/23 17:39 Lab Results 07/08/23 07/08/23 07/08/23 Range/Units 17:39 17:39 17:39 WBC 6.8 (3.8-10.6) k/uL RBC 4.52 (4.30-5.90) m/uL Hgb 14.2 (13.0-17.5) gm/dL Hct 42.9 (39.0-53.0) % MCV 94.9 (80.0-100.0) fL MCH 31.5 (25.0-35.0) pg MCHC 33.2 (31.0-37.0) g/dL RDW 13.0 (11.5-15.5) % Plt Count 204 (150-450) k/uL MPV 8.6 Neutrophils % 48 % Lymphocytes % 39 % Monocytes % 9 % Eosinophils % 2 % Basophils % 0 % Neutrophils # 3.3 (1.3-7.7) k/uL Lymphocytes # 2.6 (1.0-4.8) k/uL Monocytes # 0.6 (0-1.0) k/uL Eosinophils # 0.2 (0-0.7) k/uL Basophils # 0.0 (0-0.2) k/uL Sodium 131 L (137-145) mmol/L Potassium 5.2 H (3.5-5.1) mmol/L Chloride 97 L (98-107) mmol/L Carbon Dioxide 24 (22-30) mmol/L Anion Gap 10 mmol/L BUN 11 (9-20) mg/dL Creatinine 0.51 L (0.66-1.25) mg/dL Est GFR (CKD-EPI)AfAm >90 (>60 ml/min/1.73 sqM) Est GFR (CKD-EPI)NonAf >90 (>60 ml/min/1.73 sqM) Glucose 106 H (74-99) mg/dL Plasma Lactic Acid Mehran (0.7-2.0) mmol/L Calcium 8.7 (8.4-10.2) mg/dL Total Bilirubin 0.7 (0.2-1.3) mg/dL AST 30 (17-59) U/L ALT 17 (4-49) U/L Alkaline Phosphatase 68 (38-126) U/L Total Protein 7.2 (6.3-8.2) g/dL Albumin 3.9 (3.5-5.0) g/dL Urine Color Yellow Urine Appearance Clear (Clear) Urine pH 7.0 (5.0-8.0) Ur Specific [place] 1.029 (1.001-1.035) Urine Protein Trace H (Negative) Urine Glucose (UA) Negative (Negative) Urine Ketones Negative (Negative) Urine Blood Negative (Negative) Urine Nitrite Negative (Negative) Urine Bilirubin Negative (Negative) Urine Urobilinogen <2.0 (<2.0) mg/dL Ur Leukocyte Esterase Negative (Negative) 07/08/23 Range/Units 17:39 WBC (3.8-10.6) k/uL RBC (4.30-5.90) m/uL Hgb (13.0-17.5) gm/dL Hct (39.0-53.0) % MCV (80.0-100.0) fL MCH (25.0-35.0) pg MCHC (31.0-37.0) g/dL RDW (11.5-15.5) % Plt Count (150-450) k/uL MPV Neutrophils % % Lymphocytes % % Monocytes % % Eosinophils % % Basophils % % Neutrophils # (1.3-7.7) k/uL Lymphocytes # (1.0-4.8) k/uL Monocytes # (0-1.0) k/uL Eosinophils # (0-0.7) k/uL Basophils # (0-0.2) k/uL Sodium (137-145) mmol/L Potassium (3.5-5.1) mmol/L Chloride (98-107) mmol/L Carbon Dioxide (22-30) mmol/L Anion Gap mmol/L BUN (9-20) mg/dL Creatinine (0.66-1.25) mg/dL Est GFR (CKD-EPI)AfAm (>60 ml/min/1.73 sqM) Est GFR (CKD-EPI)NonAf (>60 ml/min/1.73 sqM) Glucose (74-99) mg/dL Plasma Lactic Acid Mehran 1.0 (0.7-2.0) mmol/L Calcium (8.4-10.2) mg/dL Total Bilirubin (0.2-1.3) mg/dL AST (17-59) U/L ALT (4-49) U/L Alkaline Phosphatase (38-126) U/L Total Protein (6.3-8.2) g/dL Albumin (3.5-5.0) g/dL Urine Color Urine Appearance (Clear) Urine pH (5.0-8.0) Ur Specific [place] (1.001-1.035) Urine Protein (Negative) Urine Glucose (UA) (Negative) Urine Ketones (Negative) Urine Blood (Negative) Urine Nitrite (Negative) Urine Bilirubin (Negative) Urine Urobilinogen (<2.0) mg/dL Ur Leukocyte Esterase (Negative) - EKG Data EKG Comments: Shows a sinus rhythm at [address] or T-wave changes. CA 197, QRS 119, QT/QTC 393/409. Disposition Clinical Impression: Umbilical hernia Disposition: HOME SELF-CARE Condition: Good Instructions (If sedation given, give patient instructions): Umbilical Hernia (ED) Additional Instructions: Please return to the Emergency Department if symptoms worsen or any other concerns. Is patient prescribed a controlled substance at d/c from ED?: No Referrals: Opal Zuniga [Primary Care Provider] - 1-2 days Time of Disposition: 19:20
[2023-07-08 18:16] LABS: Basophils % (A) 0 %; Eosinophils # (A) 0.2 k/uL (0-0.7); Eosinophils % (A) 2 %; HCT 42.9 % (39.0-53.0); HGB 14.2 gm/dL (13.0-17.5); Lymphocytes # (A) 2.6 k/uL (1.0-4.8); Lymphocytes % (A) 39 %; MCH 31.5 pg (25.0-35.0); MCHC 33.2 g/dL (31.0-37.0); MCV 94.9 fL (80.0-100.0); Mean Platelet Volume 8.6; Monocytes # (A) 0.6 k/uL (0-1.0); Monocytes % (A) 9 %; Neutrophils # (A) 3.3 k/uL (1.3-7.7); Neutrophils % (A) 48 %; Platelet Count 204 k/uL (150-450); RBC 4.52 m/uL (4.30-5.90); WBC 6.8 k/uL (3.8-10.6)
--- NOTE | 2023-07-08 18:50 | CT ---
EXAMINATION TYPE: CT abdomen pelvis w con CT DLP: 2961.4 mGycm, Automated exposure control for dose reduction was used. DATE OF EXAM: 07/08/2023 6:26 PM COMPARISON: 04/08/2023 CLINICAL INDICATION:Male, 57 years old with history of r/o strangulated left umbilical hernia; R/O st rangulated umbilical hernia. TECHNIQUE: Axial CT of the abdomen and pelvis. Sagittal and coronal reformats were created on a [employer] workstation. Contrast used:100 ml mL of Isovue 300 with IV Contrast, (none if empty) Oral contrast used: without Oral Contrast (none if empty) FINDINGS: LOWER CHEST: Unremarkable ABDOMEN LIVER: Unremarkable GALLBLADDER AND BILE DUCTS: Unremarkable. PANCREAS: Unremarkable. SPLEEN: Unremarkable. ADRENAL GLANDS: Unremarkable. KIDNEYS AND URETERS: No evidence of hydronephrosis or renal calculus. The ureters are unremarkable. PELVIS BLADDER: Unremarkable REPRODUCTIVE: Unremarkable. ABDOMEN & PELVIS STOMACH AND BOWEL: No evidence of bowel obstruction. Small moderate hiatal hernia. Second portion duo denal diverticulum. Scattered colonic diverticula. There is a moderate stool burden throughout the co becki. PERITONEUM/RETROPERITONEUM: No evidence of pneumoperitoneum or free fluid. VASCULATURE: No evidence of aortic aneurysm. MUSCULOSKELETAL: No acute osseous abnormalities LYMPH NODES: No gross evidence for lymphadenopathy. SOFT TISSUE/ABDOMINAL WALL: Omental containing hernia with fat stranding changes which appears increa sed from prior. Neck measures 27 mm is increased from 22 mm on prior. 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
[2023-07-08 18:56] LABS: Appearance,Urine Clear (Clear); Bilirubin,Urine Negative (Negative); Blood,Urine Negative (Negative); Color,Urine Yellow; Glucose,Urine (UA) Negative (Negative); Ketones,Urine Negative (Negative); Leukocyte Esterase,Urine Negative (Negative); Nitrite,Urine Negative (Negative); Protein,Urine Trace (Negative); Specific Gravity,Urine 1.029 (1.001-1.035); Urobilinogen,Urine <2.0 mg/dL (<2.0)
[2023-07-08 18:59] LABS: ALT 17 U/L (4-49); AST 30 U/L (17-59); African American GFR (CKD) >90 (>60 ml/min/1.73 sqM); Albumin 3.9 g/dL (3.5-5.0); Alkaline Phosphatase 68 U/L (38-126); Anion Gap 10 mmol/L; Blood Urea Nitrogen 11 mg/dL (9-20); Calcium 8.7 mg/dL (8.4-10.2); Carbon Dioxide 24 mmol/L (22-30); Chloride 97 mmol/L (98-107); Glucose 106 mg/dL (74-99); Non-African American GFR(CKD) >90 (>60 ml/min/1.73 sqM); Potassium 5.2 mmol/L (3.5-5.1); Sodium 131 mmol/L (137-145); Total Bilirubin 0.7 mg/dL (0.2-1.3); Total Protein 7.2 g/dL (6.3-8.2)
[2023-07-08 19:45] VITALS: BP 131/45; PULSE 66; RESP 18
== END 2023-07-08 19:45 | disposition home or self-care (01) ==
LOC: EC 16:58
DX: K42.9 Umbilical hernia without obstruction or gangrene (principal); J44.9 Chronic obstructive pulmonary disease, unspecified; F31.9 Bipolar disorder, unspecified; F20.9 Schizophrenia, unspecified; F17.200 Nicotine dependence, unspecified, uncomplicated; Z79.899 Other long term (current) drug therapy
CPT/HCPCS: 36415; 80053; 83605; 85025; 81003; 74177; 99284; Q9967

== ENCOUNTER 2024-03-23 20:36 | Emergency (ER) | payer MEDICARE ==
[2024-03-23 20:50] VITALS: RESP 18; TEMP 97.7
--- NOTE | 2024-03-23 23:25 | ED ---
Skin/Abscess/FB HPI - General Chief complaint: Skin/Abscess/Foreign Body Stated complaint: Possible rectal ulcer Time Seen by Provider: 03/23/24 22:37 Source: patient Mode of arrival: ambulatory Limitations: no limitations - History of Present Illness Initial comments: This patient is a 58-year-old man who presents to have evaluation for what he believes is an abscess near his buttocks. The patient states this has been present for some days but started to drain today. He had increased pain and tenderness and noticed there was some foul drainage. The patient denies systemic symptoms no fever or chills. No chest pain, palpitations. He does have previous history of abscesses MD complaint: abscess/boil -: days(s) Tetanus Up to Date: yes Location: buttocks Severity: moderate Quality: aching, sharp Consistency: constant Improves with: none Worsens with: palpation Context: none Associated symptoms: denies other symptoms Treatments Prior to Arrival: attempted to drain pus at home - Related Data Home Medications Medication Instructions Recorded Confirmed Divalproex [Depakote] 1,500 mg PO HS 03/11/19 03/11/19 Ibuprofen [Motrin Ib] 800 mg PO Q6H PRN 03/11/19 03/11/19 Omeprazole 20 mg PO DAILY PRN 03/11/19 03/11/19 risperiDONE [RisperDAL] 4 mg PO HS 03/11/19 03/11/19 Previous Rx's Medication Instructions Recorded Albuterol Inhaler [Ventolin Hfa 2 puff INHALATION RT-Q6H PRN #1 03/15/19 Inhaler] inhaler Amiodarone [Cordarone] 200 mg PO BID #60 tab 03/15/19 Apixaban [Eliquis] 5 mg PO BID #60 tab 03/15/19 Aspirin 81 mg PO DAILY chew 03/15/19 Atorvastatin [Lipitor] 40 mg PO DAILY #30 tab 03/15/19 Furosemide [Lasix] 40 mg PO BID@0900,1600 #60 tab 03/15/19 Isosorbide Mononitrate ER [Imdur] 30 mg PO DAILY #30 tab.er.24h 03/15/19 Metoprolol Succinate (ER) [Toprol 25 mg PO DAILY #30 tab.er.24h 03/15/19 XL] hydrALAZINE HCL [Apresoline] 25 mg PO BID #60 tab 03/15/19 lisinopriL [Zestril] 2.5 mg PO DAILY #30 tab 03/15/19 Cephalexin [Keflex] 500 mg PO Q6H #40 cap 04/25/20 Cephalexin [Keflex] 500 mg PO Q6HR 7 Days #28 cap 04/25/20 Azithromycin [Zithromax Z-pack (6 250 mg PO DIRECTED #6 tab 08/12/20 tabs)] predniSONE 50 mg PO DAILY #5 tab 08/12/20 Albuterol Inhaler [Ventolin Hfa 1 puff INHALATION TID #8 gm 04/10/23 Inhaler] Doxycycline Hyclate 100 mg PO BID 7 Days #14 capsule 04/10/23 predniSONE [Deltasone] 40 mg PO DAILY 5 Days #10 tab 04/10/23 Sulfamethox-Tmp 800-160Mg [Bactrim 1 each PO Q12HR #14 tab 03/23/24 Ds] Allergies Allergy/AdvReac Type Severity Reaction Status Date / Time No Known Allergies Allergy Verified 03/23/24 20:43 Review of Systems ROS Statement: Those systems with pertinent positive or pertinent negative responses have been documented in the HPI. ROS Other: All systems not noted in ROS Statement are negative. Constitutional: Denies: fever, chills Respiratory: Denies: cough, dyspnea Cardiovascular: Denies: chest pain, palpitations Gastrointestinal: Denies: abdominal pain, nausea, vomiting, diarrhea Musculoskeletal: Denies: back pain Skin: Reports: as per HPI, lesions Hematological/Lymphatic: Denies: easy bleeding Past Medical History Past Medical History: COPD, Myocardial Infarction (PR), Osteoarthritis (OA) Additional Past Medical History / Comment(s): chronic back pain History of Any Multi-Drug Resistant Organisms: None Reported Past Surgical History: Orthopedic Surgery Additional Past Surgical History / Comment(s): wrist Past Anesthesia/Blood Transfusion Reactions: No Reported Reaction Past Psychological History: Bipolar, Schizophrenia Smoking Status: Current every day smoker Past Alcohol Use History: None Reported Past Drug Use History: None Reported General Exam Limitations: no limitations General appearance: alert, in no apparent distress Head exam: Present: atraumatic, normocephalic Respiratory exam: Present: normal lung sounds bilaterally. Absent: respiratory distress, wheezes, rales, rhonchi, stridor Cardiovascular Exam: Present: regular rate, normal rhythm, normal heart sounds. Absent: systolic murmur, diastolic murmur, rubs, gallop GI/Abdominal exam: Present: soft. Absent: tenderness Extremities exam: Present: normal inspection, normal capillary refill. Absent: pedal edema, calf tenderness Back exam: Present: normal inspection Skin exam: Present: warm, dry, normal color, other (The patient has approximately 3 cm to 4 cm diameter gluteal abscess which has had recent drainage.) Course Vital Signs 03/23/24 03/24/24 20:41 00:10 Temperature 97.7 F Pulse Rate 71 68 Respiratory 18 18 Rate Blood Pressure 107/57 112/64 O2 Sat by Pulse 94 L 95 Oximetry Procedures - Incision & Drainage Consent Obtained: verbal consent Site: buttock Anesthetic Used: lidocaine 1% I&D Cleaning Method: Alcohol Wipe Sterile Field Used?: Yes Scalpel Used: #11 Irrigation Performed?: Yes I&D Drainage Obtained: Pus, Blood Loculation Noted: probing needed to break Insertion of drain: Yes Packing: Iodoform Patient Tolerated Procedure: well, no complications Medical Decision Making - Medical Decision Making Was pt. sent in by a medical professional or institution (Dr. PA, EQUIPMENT SCHEDULER, urgent care, hospital, or detention...) When possible be specific @ -[No] Did you speak to anyone other than the patient for history (EMS, parent, family, police, friend...)? What history was obtained from this source @ -[No] Did you review nursing and triage notes (agree or disagree)? Why? @ -[I reviewed and agree with nursing and triage notes] Were old charts reviewed (outside hosp., previous admission, EMS record, old EKG, old radiological studies, urgent care reports/EKG's, detention records)? Report findings @ -[No old charts were reviewed] Differential Diagnosis (chest pain, altered mental status, abdominal pain women, abdominal pain men, vaginal bleeding, weakness, fever, dyspnea, syncope, headache, dizziness, GI bleed, back pain, seizure, CVA, palpatations, mental health, musculoskeletal)? @ -[Abscess EKG interpreted by me (3pts min.). @ -[As above] X-rays interpreted by me (1pt min.). @ -[None done] CT interpreted by me (1pt min.). @ -[None done] U/S interpreted by me (1pt. min.). @ -[None done] What testing was considered but not performed or refused? (CT, X-rays, U/S, labs)? Why? @ -[None] What meds were considered but not given or refused? Why? @ -[None] Did you discuss the management of the patient with other professionals (professionals i.e. Dr., PA, EQUIPMENT SCHEDULER, lab, RT, psych nurse, rn social services, head of physics, teacher, escrow officer, case briefer)? Give summary @ -[No] Was smoking cessation discussed for >3mins.? @ -[No] Was critical care preformed (if so, how long)? @ -[No] Were there social determinants of health that impacted care today? How? (Homelessness, low income, unemployed, alcoholism, drug addiction, transportation, low edu. Level, literacy, decrease access to med. care, detention, rehab)? @ -[No] Was there de-escalation of care discussed even if they declined (Discuss DNR or withdrawal of care, Hospice)? DNR status @ -[No] What co-morbidities impacted this encounter? (DM, HTN, Smoking, COPD, CAD, Cancer, CVA, ARF, Chemo, Hep., AIDS, mental health diagnosis, sleep apnea, morbid obesity)? @ -[None] Was patient admitted / discharged? Hospital course, mention meds given and route, prescriptions, significant lab abnormalities, going to OR and other pertinent info. @ -[Patient is a 58-year-old man with abscess of the right buttock. I discussed this risks, benefits, indications and the patient does elect to have incision and drainage at the bedside. I used 1% lidocaine for analgesia. See the procedure note. Patient tolerated procedure well. We discussed appropriate further care and follow-up as well as return parameters Undiagnosed new problem with uncertain prognosis? @ -[No] Drug Therapy requiring intensive monitoring for toxicity (Heparin, Nitro, Insulin, Cardizem)? @ -[No] Were any procedures done? @ -[Incision and drainage of abscess Diagnosis/symptom? @ -[Incision and drainage of abscess to right buttock Acute, or Chronic, or Acute on Chronic? @ -[Acute Uncomplicated (without systemic symptoms) or Complicated (systemic symptoms)? @ -[Uncomplicated Side effects of treatment? @ -[No] Exacerbation, Progression, or Severe Exacerbation? @ -[No] Poses a threat to life or bodily function? How? (Chest pain, [place], PR, pneumonia, PE, COPD, DKA, ARF, appy, cholecystitis, CVA, Diverticulitis, Homicidal, Suicidal, threat to staff... and all critical care pts) @ -[No] Disposition Clinical Impression: Abscess Disposition: HOME SELF-CARE Condition: Good Instructions (If sedation given, give patient instructions): Abscess (ED) Prescriptions: Sulfamethox-Tmp 800-160Mg [Bactrim Ds] 1 each PO Q12HR #14 tab Is patient prescribed a controlled substance at d/c from ED?: No Referrals: Opal Zuniga [Primary Care Provider] - 1-2 days
[2024-03-23] MEDS: LIDOCAINE 1% INJ 10MG/ML (20 ML MDV) SQ ONE (23:31)
[2024-03-24] MEDS: SULFAMETHOX-TMP 800-160MG 1 EACH TAB PO STA (00:12)
[2024-03-24 01:10] VITALS: BP 112/64; PULSE 68
== END 2024-03-24 00:39 | disposition home or self-care (01) ==
LOC: EC 20:36
DX: L02.31 Cutaneous abscess of buttock (principal); F17.200 Nicotine dependence, unspecified, uncomplicated
CPT/HCPCS: 10060; 99282; J2001

== ENCOUNTER 2025-01-11 01:28 | Emergency (ER) | payer MEDICARE ==
[2025-01-11 01:41] VITALS: BP 129/72; PULSE 69; RESP 18; TEMP 97.4
--- NOTE | 2025-01-11 01:57 | ED ---
General Adult HPI - General Chief complaint: Upper Respiratory Infection Stated complaint: headache Time Seen by Provider: 01/11/25 01:34 Source: patient Mode of arrival: ambulatory Limitations: no limitations - History of Present Illness Initial comments: Patient is a 59-year-old gentleman presenting with his today for COVID-19 testing. Patient originally presented to the ER accompanying his who tested positive for COVID-19. Patient then requested COVID-19 testing out of concern he will become very sick should he have COVID and may require Paxlovid. Patient currently denies any symptoms. Did note earlier that he felt somewhat lightheaded but otherwise asymptomatic. He denies shortness of breath, chest pain, cough or additional symptoms. - Related Data Home Medications Medication Instructions Recorded Confirmed Divalproex [Depakote] 1,500 mg PO HS 03/11/19 03/11/19 Ibuprofen [Motrin Ib] 800 mg PO Q6H PRN 03/11/19 03/11/19 Omeprazole 20 mg PO DAILY PRN 03/11/19 03/11/19 risperiDONE [RisperDAL] 4 mg PO HS 03/11/19 03/11/19 Previous Rx's Medication Instructions Recorded Albuterol Inhaler [Ventolin Hfa 2 puff INHALATION RT-Q6H PRN #1 03/15/19 Inhaler] inhaler Amiodarone [Cordarone] 200 mg PO BID #60 tab 03/15/19 Apixaban [Eliquis] 5 mg PO BID #60 tab 03/15/19 Aspirin 81 mg PO DAILY chew 03/15/19 Atorvastatin [Lipitor] 40 mg PO DAILY #30 tab 03/15/19 Furosemide [Lasix] 40 mg PO BID@0900,1600 #60 tab 03/15/19 Isosorbide Mononitrate ER [Imdur] 30 mg PO DAILY #30 tab.er.24h 03/15/19 Metoprolol Succinate (ER) [Toprol 25 mg PO DAILY #30 tab.er.24h 03/15/19 XL] hydrALAZINE HCL [Apresoline] 25 mg PO BID #60 tab 03/15/19 lisinopriL [Zestril] 2.5 mg PO DAILY #30 tab 03/15/19 Cephalexin [Keflex] 500 mg PO Q6H #40 cap 04/25/20 Cephalexin [Keflex] 500 mg PO Q6HR 7 Days #28 cap 04/25/20 Azithromycin [Zithromax Z-pack (6 250 mg PO DIRECTED #6 tab 08/12/20 tabs)] predniSONE 50 mg PO DAILY #5 tab 08/12/20 Albuterol Inhaler [Ventolin Hfa 1 puff INHALATION TID #8 gm 04/10/23 Inhaler] Doxycycline Hyclate 100 mg PO BID 7 Days #14 capsule 04/10/23 predniSONE [Deltasone] 40 mg PO DAILY 5 Days #10 tab 04/10/23 Sulfamethox-Tmp 800-160Mg [Bactrim 1 each PO Q12HR #14 tab 03/23/24 Ds] Nirmatrelvir/Ritonavir [Paxlovid 1 each PO BID 5 Days #10 each 01/11/25 300-100 mg Dose Pack] Allergies Allergy/AdvReac Type Severity Reaction Status Date / Time No Known Allergies Allergy Verified 01/11/25 01:40 Review of Systems ROS Statement: Those systems with pertinent positive or pertinent negative responses have been documented in the HPI. ROS Other: All systems not noted in ROS Statement are negative. Past Medical History Past Medical History: COPD, Myocardial Infarction (RI), Osteoarthritis (OA) Additional Past Medical History / Comment(s): chronic back pain History of Any Multi-Drug Resistant Organisms: None Reported Past Surgical History: Orthopedic Surgery Additional Past Surgical History / Comment(s): wrist Past Anesthesia/Blood Transfusion Reactions: No Reported Reaction Past Psychological History: Bipolar, Schizophrenia Smoking Status: Current every day smoker Past Alcohol Use History: None Reported Past Drug Use History: Marijuana General Exam - General Exam Comments Initial Comments: PE: CONSTITUTIONAL: No apparent distress, well appearing SKIN: Warm, dry, no jaundice, hives or petechiae EYES: Pupils are equally round, extraocular movements intact without nystagmus, clear conjunctiva, non-icteric sclera HENT: Normocephalic, atraumatic, moist mucus membranes, oropharynx clear without exudates NECK: , Full range of motion, normal appearance PULMONARY: Clear to auscultation without wheezes, rhonchi, or rales, normal excursion, no accessory muscle use and no stridor CARDIOVASCULAR: Regular rate, rhythm, normal S1 and S2. No appreciated murmurs, rubs or gallops. Extremities well-perfused no lower extremity edema GASTROINTESTINAL: Soft, active bowel sounds throughout, non-tender, non- distended, no palpable masses, no rebound or guarding. No hepatosplenomegaly MUSCULOSKELETAL: Extremities have no gross deformity NEUROLOGIC:_a/o x 3, GCS 15, normal mentation and speech. Moves all extremities x 4 without motor or sensory deficit PSYCHIATRIC:_normal mood and affect, thought process is clear and linear Limitations: no limitations Course Vital Signs 01/11/25 01:37 Temperature 97.4 F L Pulse Rate 69 Respiratory 18 Rate Blood Pressure 129/72 O2 Sat by Pulse 92 L Oximetry Medical Decision Making - Medical Decision Making Was pt. sent in by a medical professional or institution (, [facility], [employer], urgent care, hospital, or [facility]...) When possible be specific @ -[No] Did you speak to anyone other than the patient for history (EMS, parent, family, police, friend...)? What history was obtained from this source @ -[No] Did you review nursing and triage notes (agree or disagree)? Why? @ -[I reviewed nursing and triage notes] Were old charts reviewed (outside hosp., previous admission, EMS record, old EKG, old radiological studies, urgent care reports/EKG's, [facility] records)? Report findings @ -[Medical records reviewed] Differential Diagnosis (chest pain, altered mental status, abdominal pain women, abdominal pain men, vaginal bleeding, weakness, fever, dyspnea, syncope, headache, dizziness, GI bleed, back pain, seizure, CVA, palpatations, mental health, musculoskeletal)? @ -[not applicable] EKG interpreted by me (3pts min.). @ -[As above] X-rays interpreted by me (1pt min.). @ -[None done] CT interpreted by me (1pt min.). @ -[None done] U/S interpreted by me (1pt. min.). @ -[None done] What testing was considered but not performed or refused? (CT, X-rays, U/S, labs)? Why? @ -[None] What meds were considered but not given or refused? Why? @ -[None] Did you discuss the management of the patient with other professionals (professionals i.e. , [facility], [employer] WORKER, lab, RT, psych nurse, social work nurse, performance instructor, teacher, staff air tactical officer, case resource manager)? Give summary @ -[No] Was smoking cessation discussed for >3mins.? @ -[No] Was critical care preformed (if so, how long)? @ -[No] Were there social determinants of health that impacted care today? How? (Homelessness, low income, unemployed, alcoholism, drug addiction, transportation, low edu. Level, literacy, decrease access to med. care, prison, rehab)? @ -[No] Was there de-escalation of care discussed even if they declined (Discuss DNR or withdrawal of care, Hospice)? @ -[No] What co-morbidities impacted this encounter? (DM, HTN, Smoking, COPD, CAD, Cancer, CVA, ARF, Chemo, Hep., AIDS, mental health diagnosis, sleep apnea, morbid obesity)? @ -[None] Was patient admitted / discharged? Hospital course, mention meds given and route, prescriptions, significant lab abnormalities, going to OR and other pertinent info. @ -[hospital course] Undiagnosed new problem with uncertain prognosis? @ -[No] Drug Therapy requiring intensive monitoring for toxicity (Heparin, Nitro, Insulin, Cardizem)? @ -[No] Were any procedures done? @ -[No] Diagnosis/symptom? @ -[default] Acute, or Chronic, or Acute on Chronic? @ -[default] Uncomplicated (without systemic symptoms) or Complicated (systemic symptoms)? @ -[default] Side effects of treatment? @ -[No] Exacerbation, Progression, or Severe Exacerbation? @ -[No] Poses a threat to life or bodily function? How? (Chest pain, [place], RI, pneumonia, PE, COPD, DKA, ARF, appy, cholecystitis, CVA, Diverticulitis, Homicidal, Suicidal, threat to staff... and all critical care pts) @ -[No] - Lab Data Lab Results 01/11/25 Range/Units 01:41 Influenza Type A (PCR) Not Detected (Not Detectd) Influenza Type B (PCR) Not Detected (Not Detectd) RSV (PCR) Not Detected (Not Detectd) SARS-CoV-2 (PCR) Not Detected (Not Detectd) Disposition Clinical Impression: Exposure to COVID-19 virus Disposition: HOME SELF-CARE Condition: Stable Instructions (If sedation given, give patient instructions): Upper Respiratory Infection (ED) Additional Instructions: Every disease is a spectrum and a small chance still exists that a serious condition could develop, for this reason, please monitor yourself closely for new, changing or worsening symptoms, difficulty in breathing/shortness of breath, chest pain, leg swelling, [fever greater than 4 days], cough productive of thick sputum or blood, inability to tolerate/keep down fluids or your medications, inability to follow up with outpatient providers as instructed and should you experience these symptoms or should you have any further concerns for your wellbeing please return to the ED or call 911 immediately. A prescription for Paxlovid will be sent to your pharmacy. You will be called with the results of your COVID test. If you have no symptoms and your COVID test is negative you do not need this prescription, please do not pick it up. If your COVID test is positive please picker box operator your prescription and start taking as prescribed. If your COVID test is negative and you start having symptoms, such as cough, body aches, fevers, chills, sore throat, nasal congestion, diarrhea please return to the emergency department, local urgent care or see your primary care provider for a repeat COVID test and further evaluation. If you picker box operator your paxlovid, please confirm with your pharmacy that you are NOT taking amiodarone. If you are taking amiodarone, you will need to stop taking your amiodarone while you are on paxlovid. Should this occur, please call your primary care provider and/or student education specialist to let them know you have stopped your amiodarone. PLEASE call your primary care physician as soon as possible to arrange / discuss plan for followup appointment. Appointment in the next 1-3 days is strongly encouraged if possible. You will need to isolate for 5 days from when your symptoms started. After this please follow-up with your primary care provider for recheck.. PLEASE let us know here before you leave if there is anything further we can do to be of any assistance. Take care and feel Better! Prescriptions: Nirmatrelvir/Ritonavir [Paxlovid 300-100 mg Dose Pack] 1 each PO BID 5 Days #10 each Referrals: None,Stated [Primary Care Provider] - 1-2 days
[2025-01-11 02:34] LABS: Influenza A Not Detected (Not Detectd); Influenza B Not Detected (Not Detectd); RSV Not Detected (Not Detectd)
== END 2025-01-11 01:59 | disposition home or self-care (01) ==
LOC: EC 01:28
DX: R51.9 Headache, unspecified (principal); Z20.822 Contact with and (suspected) exposure to COVID-19; F17.200 Nicotine dependence, unspecified, uncomplicated
CPT/HCPCS: 87636; 99284

== ENCOUNTER → 2025-02-12 | Outpatient (CLI) | payer MEDICARE ==
--- NOTE | 2025-02-12 13:49 | CTL ---
EXAMINATION TYPE: CT Low Dose Lung DATE OF EXAM ORDERED: 02/12/2025 COMPARISON: CTA chest dated 08/12/2020 CLINICAL INDICATION: Male, 59 years old with history of Z12.2 Screening; F17.210 Nicotine dependence; PHH, Current smoker, 1 ppd x 45 years, Lung cancer screening, History of Smoking/tobacco use. TECHNIQUE: Low dose computed tomography scan was performed through the chest at 1 mm thick sections a nd reconstructed images in multiple planes at 1 mm and [address] DLP: [address] CTDI: 3.56 mGy Automated exposure control for dose reduction was used. CT DIAGNOSTIC QUALITY: Satisfactory EXAMINATION TYPE: CT Low Dose Lung DATE OF EXAM ORDERED: 02/12/2025 CLINICAL INDICATION: Male, 59 years old with history of Z12.2 Screening; F17.210 Nicotine dependence, history of tobacco use, Lung cancer screening CT DLP: [address] CTDI: 3.56 mGy Automated exposure control for dose reduction was used. Comparison: None TECHNIQUE: Low dose computed tomography scan was performed through the chest at 1 mm thick sections a nd reconstructed images in multiple planes at 1 mm and [address] DIAGNOSTIC QUALITY: Satisfactory FINDINGS: There is no suspicious lung mass or nodule. There are 2 or 3 micronodules in the right upper lobe. The lungs are clear and there is no abnormal airspace consolidation or interstitial density. There is no mediastinal, hilar or axillary adenopathy. There is no pleural effusion, pleural thickening or pneumothorax. No focal osseous lesions are seen. Limited scans the upper abdomen reveals no gross abnormality IMPRESSION: 1. Lung rads Category 2 benign. Continue routine screening at yearly intervals. 2. No acute cardiopulmonary disease. [facility], , 02/12/2025 1:46 PM
== END | disposition home or self-care (01) ==
LOC: RADCTMAIN 13:07
PROVIDERS: ATTEND Student in an Organized Health Care Education/Training Program
DX: Z12.2 Encounter for screening for malignant neoplasm of respiratory organs (principal); F17.210 Nicotine dependence, cigarettes, uncomplicated
CPT/HCPCS: 71271